=== PATIENT | female | born 1995 | race Caucasian/White ===

== ENCOUNTER 2017-12-11 06:14 | Inpatient (IN) | payer OTHER, SELFPAY ==
[2017-12-11] MEDS: Lactated Ringers 1,000 ML 50 ML IV ×3 (07:00→13:32)
[2017-12-11 07:03] VITALS: BMI 29.7
[2017-12-11 07:25] LABS: Hematocrit 34.5 % (37-47); Hemoglobin 12.1 g/dl (12.0-15.0); Mean Corp Hgb Conc 35.1 g/gl (32-36); Mean Corpuscular Hgb 30.8 pg (27.0-32.0); Mean Corpuscular Volume 87.8 fL (81-99); Mean Platelet Vol. 12.3 fl (6.2-12.0); Platelet Count 195 K/mm3 (150-450); RBC Distribution Width CV 13.5 % (11.6-14.6); RBC Distribution Width SD 41.3 fl (35.1-43.9); Red Blood Count 3.93 M/mm3 (4.2-5.4); White Blood Count 13.5 K/mm3 (4.4-11.0)
[2017-12-11 07:30] LABS: Scan Indicated on CBC? Y/N NO
[2017-12-11] MEDS: fentaNYL-bupivacaine (epidural) 100 ML BAG EPIDURAL ×2 (08:34→11:58)
[2017-12-11] MEDS: Ondansetron 4 MG/2 ML Vial IV (13:32)
[2017-12-11] MEDS: Oxytocin 30 units/NS 500 ml 30 UNITS/500 ML IV.SOLN IV (16:28)
[2017-12-11] MEDS: Oxytocin 30 units/NS 500 ml 30 UNITS/500 ML IV.SOLN 334 UNITS IV (17:25)
[2017-12-11] MEDS: Oxytocin 30 units/NS 500 ml 30 UNITS/500 ML IV.SOLN 167 UNITS IV (17:55)
--- NOTE | 2017-12-11 18:04 | PCM.OB.VAG ---
Vaginal Delivery Maternal Presentation: Active Labor Amniotic Membrane Rupture Type: Artificial Amniotic Fluid Description: Clear Final KOREY: 12/19/17 Final KOREY Source: US <20 weeks Gestational age: 38 Weeks and 6 Days Date of Procedure: 12/11/17 Pre-Operative Diagnosis: Labor Post-Operative Diagnosis: same Surgery/ Procedure Performed: Spontaneous Vaginal Delivery Type of Anesthesia: Epidural Description of Procedure: A vigorous male was delivered DEBBI over a second-degree perineal laceration. The remainder the was delivered with maternal pushing and gentle traction only in less than 15 seconds. The Pitocin infusion was initiated for active management of the third stage. The cord was clamped and cut after 1 minute. The was attended to by the waiting nursing staff. The placenta was delivered spontaneously and intact. The cervix and vagina were intact. The second-degree perineal laceration was repaired with 3-0 Vicryl suture in a running standard fashion. Sponge and needle counts were correct. A vaginal sweep was completed by me. Presentation: DEBBI Placental Delivery Description: Spontaneous Placenta Disposition: [facility] Cord Vessel Description: 3 Vessels Cord Entanglement: None Drain: Yang to straight drain Estimated Blood Loss: 300 Infant A gender: Male (1 minute): 8 (5 minute): 9 Episiotomy Description: None Medications given after delivery: IV Pitocin Complications: None
--- NOTE | 2017-12-11 18:12 | HP.PCM_ITS ---
History Date of Admission: 12/11/17 Final KOREY: 12/19/17 Final KOREY Source: US <20 weeks Gestational age: 38 Weeks and 6 Days History of this : 22-year-old 1 para 0 who presents at 38-6/7 weeks gestation with EDC of 12/19/2017 by last menstrual period confirmed by first trimester ultrasound presents complaining of contractions. She has been having contractions all night. This morning it got severe enough that she came to labor and delivery and was found to be 6 cm in active labor. She has had no gross vaginal bleeding or leaking of fluid. The has been uncomplicated to date Pertinent Past Medical History: History of urinary tract infections, left wrist fracture, neuroma of the breast Family medical history is noncontributory Past surgical history-none Allergies No Known Allergies Allergy (Verified 10/30/14 16:04) Current Medications Acetaminophen (Tylenol) 325 - 650 mg PO Q4H PRN PRN PRN Reason: PAIN OR FEVER >100.4F Al Hydroxide/Mg Hydroxide (Mylanta Ii) 15 - 30 ml PO Q4H PRN PRN PRN Reason: INDIGESTION Citric Acid/Sodium Citrate (Bicitra) 30 ml PO UD PRN Lactated Ringer's () 1,000 mls @ 50 mls/hr IV .Q20H GERMÁN Last Admin: 12/11/17 13:32 Dose: 50 mls/hr Naloxone HCl 4 mg/ Dextrose 504 mls @ 0 mls/hr IV PRN PRN; Protocol PRN Reason: TO MAINTAIN RR>10 Oxytocin/Sodium Chloride () 30 units in 500 mls @ 1 mls/hr IV .Q500H GERMÁN Nalbuphine HCl (Nubain) 5 - 10 mg IV Q3H PRN PRN PRN Reason: PAIN (4-10/10) Nalbuphine HCl (Nubain) 5 mg IV Q3H PRN PRN Reason: ITCHING Stop: 12/12/17 08:27 Naloxone HCl (Narcan) 0.2 mg IV Q1M PRN PRN Reason: RR<10 AND PT UNRESPONSIVE Stop: 12/12/17 08:27 Ondansetron HCl (Zofran) 4 mg IV Q8H PRN PRN PRN Reason: NAUSEA Last Admin: 12/11/17 13:32 Dose: 4 mg Promethazine HCl (Phenergan Iv) 6.25 - 12.5 mg IV Q4H PRN PRN; Protocol PRN Reason: IF NAUSEA PERSISTS Sodium Chloride () 5 - 15 ml IV UD [facility] Smoking Status: Never smoker Alcohol: None Drug Use: none Number of Fetus(es): 1 Review of Systems Constitutional: Denies: Chills, Fever Cardiovascular: Denies: Chest Pain Respiratory: Denies: Cough Skin: Denies: Rash Physical Exam General: Alert, Cooperative, No apparent distress Abdomen: Soft, Non Tender, Non-Distended, Gravid, Appropriate for Gestational Age Extremities:: Other - 1+ edema Estimated gestational size: Appropriate for gestational size Presentation: Cephalic Assessment/Plan 22-year-old 1 para 0 at 38-6/7 weeks gestation in spontaneous labor. 1. Estimated weight is less than 4500 g the pelvis is clinically adequate to expect vaginal delivery 2. Epidural if desires, Pitocin augmentation if needed
[2017-12-11] MEDS: 0.9% Saline Lock 10 ML Syringe IV (19:20)
[2017-12-11 19:41] VITALS: BP 132/73; PULSE 75; RESP 18; TEMP 36.4; O2SAT 98
[2017-12-11 23:11] VITALS: BP 113/65; PULSE 85; RESP 18; TEMP 36.7
--- NOTE | 2017-12-11 23:30 | NURSING ---
patient was up to bathroom, voided and missed hat-only 100 cc into hat. patient feels was able to fully empty bladder, FF
[2017-12-12 03:27] VITALS: BP 121/84; PULSE 85; RESP 18; TEMP 36.4
--- NOTE | 2017-12-12 03:42 | NURSING ---
missed hat again, voided large amount in toilet. feels like emptied bladder
[2017-12-12] MEDS: Acetaminophen 500 MG Tablet 1000 MG PO ×2 (03:43→16:46)
[2017-12-12 04:48] LABS: Hematocrit 30.9 % (37-47); Hemoglobin 10.5 g/dl (12.0-15.0); Mean Corpuscular Hgb 30.6 pg (27.0-32.0); Mean Corpuscular Volume 90.1 fL (81-99); Mean Platelet Vol. 12.2 fl (6.2-12.0); Platelet Count 157 K/mm3 (150-450); RBC Distribution Width CV 13.8 % (11.6-14.6); RBC Distribution Width SD 43.3 fl (35.1-43.9); Red Blood Count 3.43 M/mm3 (4.2-5.4); White Blood Count 14.3 K/mm3 (4.4-11.0)
[2017-12-12 04:49] LABS: Scan Indicated on CBC? Y/N NO
[2017-12-12 08:00] VITALS: BP 119/70; PULSE 85; RESP 16; TEMP 36.4; O2SAT 98
--- NOTE | 2017-12-12 08:22 | PCM.PN.OB ---
Subjective: No complaints - Physical Exam General: Alert, Oriented x3 Abdomen: Soft, Non Tender, Non-Distended Vital Signs Temp Pulse Resp BP Pulse Ox 97.6 F L 85 18 121/84 H 98 12/12/17 03:27 12/12/17 03:27 12/12/17 03:27 12/12/17 03:27 12/11/17 19:41 Oxygen Delivery Method Room Air Weight: 173 lb 1.006 oz Body Mass Index (BMI) 29.7 Intake and Output for Last 24 Hours 12/10/17 12/11/17 12/12/17 23:59 23:59 23:59 Intake Total 3607 / 3607 Output Total 700 / 700 100 / 100 Balance 2907 / 2907 -100 / -100 Laboratory Tests Past 24 Hrs 12/11/17 12/12/17 07:00 04:30 WBC 14.3 H RBC 3.43 L Hgb 10.5 L Hct 30.9 L MCV 90.1 MCH 30.6 MCHC 34.0 RDW 13.8 RDW Differential 43.3 Plt Count 157 MPV 12.2 H Blood Type O POSITIVE Antibody Screen NEGATIVE Medical Necessity - Tobacco Use Smoking Status: Never smoker Assessment/Plan A&P: PPD#1 Routine care
--- NOTE | 2017-12-12 09:12 | PCM.PN.OB ---
Subjective: pain well controlled, average lochia - Physical Exam General: Alert, Cooperative, No apparent distress Vital Signs Temp Pulse Resp BP Pulse Ox 97.6 F L 85 18 121/84 H 98 12/12/17 03:27 12/12/17 03:27 12/12/17 03:27 12/12/17 03:27 12/11/17 19:41 Oxygen Delivery Method Room Air Weight: 78.5 kg Body Mass Index (BMI) 29.7 Intake and Output for Last 24 Hours 12/10/17 12/11/17 12/12/17 23:59 23:59 23:59 Intake Total 3607 / 3607 Output Total 700 / 700 100 / 100 Balance 2907 / 2907 -100 / -100 Laboratory Tests Past 24 Hrs 12/11/17 12/12/17 07:00 04:30 WBC 14.3 H RBC 3.43 L Hgb 10.5 L Hct 30.9 L MCV 90.1 MCH 30.6 MCHC 34.0 RDW 13.8 RDW Differential 43.3 Plt Count 157 MPV 12.2 H Blood Type O POSITIVE Antibody Screen NEGATIVE Medical Necessity - Tobacco Use Smoking Status: Never smoker Assessment/Plan PPD#1 doing well infant and doing well
--- NOTE | 2017-12-12 09:13 | DCINST_ITS ---
Discharge Diet: No Restrictions Discharge Activity: Return to Normal Activity, May not drive while taking narcotic pain medications., May Shower May resume sexual activity in: 4-6 weeks Additional Activity Instructions:: Nothing in the vagina for 4-6 weeks. You may return to work/school in 6 weeks. Call your doctor if your incision/area has: Continuous Slow Oozing, Sudden Increased Bleeding, Increased Pain/ Swelling, Increased Redness, Foul Smelling Discharge Additional Instructions: If you experience any of the following, contact your healthcare provider. * Bleeding that soaks a pad every hour for 2 hours * Fever 100.4 or higher * Unrelieved incision or abdominal pain * Swelling, redness, discharge or bleeding from your incision or episiotomy site * Your incision begins to separate * Problems urinating (including inability to urinate or burning while urinating) . * Visual changes * Severe headache * Flu-like symptoms * Pain or redness in one of both of your breasts * Pain, warmth, tenderness or swelling in your legs, especially the calf area * Frequent nausea and vomiting * Symptoms of depression or anxiety If you experience any of the following, call 911 or go to the nearest Emergency Room. * Chest pain * Problems breathing * Seizure activity * Partial or complete paralysis of a body part, slurred speech, weakness or drooping of the face, or a sudden inability to walk or hold your balance Allergies/Adverse Reactions: Allergies No Known Allergies Allergy (Verified 10/30/14 16:04) Medications to take at Discharge Vits [Prenatabs FA] 1 tablet PO DAILY 12/11/17 Ibuprofen [Motrin] 600 mg PO Q6H PRN #60 tab 12/12/17 The following prescriptions were given: Ibuprofen [Motrin] 600 mg PO Q6H PRN #60 tab PRN Reason: Pain Orders to be completed after discharge: Electric breast pump Location: None Selected Please Follow Up With: Nina Cuenca MD - [phone] When: Call to make an appointment with your doctor's office in 6 weeks. If you had elevated Blood Pressure or 4th degree laceration you will need to be seen in 2 weeks. Primary Care Physician: Care Physician,No Primary [Primary Care Provider] -
[2017-12-12] MEDS: Naproxen 250 MG Tablet PO (09:43)
[2017-12-12 14:00] VITALS: BP 119/75; PULSE 77; RESP 16; TEMP 36.6
[2017-12-12 15:19] VITALS: BP 117/76; PULSE 78; RESP 16; TEMP 36.6; O2SAT 99
[2017-12-12 19:42] VITALS: BP 114/67; PULSE 80; RESP 16; TEMP 36.6; O2SAT 98
[2017-12-13 02:45] VITALS: BP 120/77; PULSE 72; RESP 16; TEMP 36.4; O2SAT 97
[2017-12-13] MEDS: Ibuprofen 600 MG Tablet PO (02:56)
[2017-12-13 08:20] VITALS: BP 114/71; PULSE 78; RESP 20; TEMP 36.6
--- NOTE | 2017-12-13 09:21 | PCM.PN.BLA ---
Progress Note S: Patient reports no issues today, desires to be discharged to home. Patient reports is going well, patient notes no issues with latch. Patient denies dizziness, scotoma or HOWARD. O: VSS, Afebrile. H/H from 12/12/17 = 12.7/38.0 Nipples without cracks or blisters, soft, filling, no erythema noted Abdomen NT x 4 quadrants, FF midline @ 2FB below umbilicus +2/4 reflexes in LE, no edema, negative calf tenderness to palpation perineum well approximated, scant rubra lochia A: PPD #2, s/p , Normal PP Course P: 1) Discharge patient to home 2) Anticipatory PP teaching reviewed 3) RTC at 6 weeks PP to [facility] for gildardo Thibodeaux CNM
--- NOTE | 2017-12-13 09:28 | PN_ITS ---
Progress Note S: Patient reports no issues today, desires to be discharged to home. Patient reports is going well, patient notes no issues with latch. Patient denies dizziness, scotoma or HOWARD. O: VSS, Afebrile. H/H from 12/12/17 = 12.7/38.0 Nipples without cracks or blisters, soft, filling, no erythema noted Abdomen NT x 4 quadrants, FF midline @ 2FB below umbilicus +2/4 reflexes in LE, no edema, negative calf tenderness to palpation perineum well approximated, scant rubra lochia A: PPD #2, s/p , Normal PP Course P: 1) Discharge patient to home 2) Anticipatory PP teaching reviewed 3) RTC at 6 weeks PP to [facility] for gildardo Thibodeaux CNM
[2017-12-13] MEDS: Senna/Docusate Sodium 1 Tablet PO (09:56)
== END 2017-12-13 13:20 | disposition home or self-care (01) | DRG 775 ==
PROVIDERS: Obstetrics & Gynecology; Admitting Provider Obstetrics & Gynecology; Visit Provider Obstetrics & Gynecology
DX: O70.1 Second degree perineal laceration during delivery (principal); Z37.0 Single live birth; Z3A.38 38 weeks gestation of pregnancy
CPT/HCPCS: 59025; 59050; 85027; 86850; 86900; 99218; J7120; A4216; G0378; J2405

== ENCOUNTER 2017-12-22 11:23 | Outpatient (CLI) | payer OTHER, SELFPAY | END 2017-12-22 12:00 | disposition home or self-care (01) | LOC: WPOUT 11:29 → WP 11:30 | PROVIDERS: Visit Provider Pediatrics | DX: O92.79 Other disorders of lactation (principal) | CPT/HCPCS: 96152 ==

== ENCOUNTER 2019-10-27 15:30 | Inpatient (IN) | payer OTHER, SELFPAY ==
[2019-10-27] MEDS: Lactated Ringers 1,000 ML 200 ML IV (15:50)
[2019-10-27 16:21] VITALS: BMI 30.7
[2019-10-27 16:26] LABS: Absolute Lymphocyte Count 1.94 X10^3/uL (0.83-4.51); Absolute Neutrophil Count 8.1 X10^3/uL (2.0-7.7); Basophil# 0.01 X10^3/uL; Basophil% 0.1 % (0-1); Eosinophil# 0.02 X10^3/uL; Eosinophils% 0.2 % (0-5); Hematocrit 33.5 % (37-47); Hemoglobin 11.5 g/dL (12.0-15.0); Lymphocyte # 1.94 X10^3/ul (4.0); Lymphocyte % 17.6 % (19-41); Mean Corp Hgb Conc 34.3 g/dL (32-36); Mean Corpuscular Hgb 29.7 pg (27.0-32.0); Mean Corpuscular Volume 86.6 fL (81-99); Mean Platelet Vol. 12.4 fl (6.2-12.0); Monocyte# 0.87 X10^3/uL; Monocyte% 7.9 % (0-10); NRBC Flagged by Analyzer 0 % (0-5); Neutrophil # 8.11 X10^3/uL (2.7-7.7); Neutrophil % 73.7 % (47-70); Platelet Count 193 K/mm3 (150-450); RBC Distribution Width CV 13.2 % (11.6-14.6); RBC Distribution Width SD 41.1 fl (35.1-43.9); Red Blood Count 3.87 M/mm3 (4.2-5.4)
[2019-10-27] MEDS: Oxytocin 30 units/NS 500 ml 30 UNITS/500 ML IV.SOLN 334 UNITS IV (16:55)
--- NOTE | 2019-10-27 17:03 | HP.PCM_ITS ---
History Date of Admission: 12/11/17 Final KOREY: 11/07/19 Final KOREY Source: US <20 weeks Gestational age: 38 Weeks and 3 Days History of this : This is a 24 year-old, @ 38.3 wks in active labor Allergies No Known Allergies Allergy (Verified 10/30/14 16:04) Home Medications: Home Medications Vits [Prenatabs FA] 1 tablet PO DAILY 12/11/17 Smoking Status: Never smoker Alcohol: None Number of Fetus(es): 1 History Past Pregnancies: Past Pregnancies Delivery Date Name GA/ Weeks Outcome Route Wt Sex Labor Length Anesthesia Delivery Location Provider FOB Physical Exam General: Alert, Oriented x3 Abdomen: Soft, Gravid Neurological: Cranial nerves II-XII grossly intact [employer]: Normal external genitalia Estimated gestational size: Appropriate for gestational size Presentation: Cephalic Cervix Dilation (cm): 9 Station: 0 Effacement (%): 90 Assessment/Plan This is a 24 year-old, @ 38.3 wks in active labor admit to l&D monitor fhr/toco anticipate
--- NOTE | 2019-10-27 17:04 | PCM.OPRPT ---
Vaginal Delivery Maternal Presentation: Active Labor Amniotic Membrane Rupture Type: Artificial Amniotic Fluid Description: Clear Final KOREY: 11/07/19 Final KOREY Source: LMP Gestational age: 38 Weeks and 3 Days Date of Procedure: 10/27/19 Pre-Operative Diagnosis: term gestation, active labor Post-Operative Diagnosis: Live female Surgery/ Procedure Performed: Spontaneous Vaginal Delivery Type of Anesthesia: None Description of Procedure: of live female infant born without complications. Delayed cord clamping performed. vigorous at and placed on mother chest for skin to skin. placenta delivered spontaneously intact. No lacerations. Presentation: Vertex Placental Delivery Description: Spontaneous Placenta Disposition: [facility] Cord Vessel Description: 3 Vessels Nuchal Cord Compression: With compression Cord Entanglement: Around neck x 1, loose Estimated Blood Loss: 150 Infant A gender: Female (1 minute): 9 (5 minute): 9 Episiotomy Description: None Laceration: None Medications given after delivery: IV Pitocin Complications: None
[2019-10-27] MEDS: Ibuprofen 600 MG Tablet PO (17:31)
[2019-10-27] MEDS: 0.9% Saline Lock 10 ML Syringe IV (19:32)
[2019-10-27 21:00] VITALS: BP 119/68; PULSE 84; RESP 18; TEMP 37.2
[2019-10-27 23:22] VITALS: BP 111/80; PULSE 80; RESP 14; TEMP 37.1
[2019-10-28 03:58] VITALS: BP 108/67; PULSE 77; RESP 14; TEMP 36.9
--- NOTE | 2019-10-28 07:26 | PCM.PN.OB ---
Subjective: pt seen at bedside, Doing well. Patient reports good pain control. Mild lochia. Breast-feeding without difficulty. Requesting DC home today - Physical Exam Vitals/I&O's: Vital Signs Temp Pulse Resp BP 98.5 F 77 14 108/67 10/28/19 03:58 10/28/19 03:58 10/28/19 03:58 10/28/19 03:58 Oxygen Delivery Method Room Air Weight: 81.193 kg Body Mass Index (BMI) 30.7 Intake and Output for Last 24 Hours 10/26/19 10/27/19 10/28/19 23:59 23:59 23:59 Intake Total 716.67 / 716.67 Balance 716.67 / 716.67 General: Alert, Oriented x3 Abdomen: Soft, Non Tender, Non-Distended Extremities: No Calf Tenderness, - - fundus firm Laboratory Results 10/27/19 15:50: WBC 11.0, RBC 3.87 L, Hgb 11.5 L, Hct 33.5 L, MCV 86.6, MCH 29.7, MCHC 34.3, RDW Std Deviation 41.1, RDW Coeff of Patrick 13.2, Plt Count 193, MPV 12.4 H, Immature Gran % (Auto) 0.500, Neut % (Auto) 73.7 H, Lymph % (Auto) 17.6 L, [place] % (Auto) 7.9, Eos % (Auto) 0.2, Baso % (Auto) 0.1, Absolute Neuts (auto) 8.1 H, Absolute Lymphs (auto) 1.94, Nucleated RBC % 0 10/27/19 15:50: Blood Type O POSITIVE, Antibody Screen NEGATIVE Current Medications Acetaminophen (Tylenol) 1,000 mg PO Q8H PRN PRN PRN Reason: Pain Score 1-3/10 Bisacodyl (Dulcolax) 10 mg RECTAL UD PRN PRN Reason: If no BM Dibucaine (Dibucaine) 1 applic TOPICAL TID PRN PRN; Protocol PRN Reason: Discomfort Hydrocortisone (Hytone) 1 applic TOPICAL TID PRN PRN; Protocol PRN Reason: Discomfort Ibuprofen (Motrin) 600 mg PO Q6H PRN PRN PRN Reason: Pain Score 1-3/10 Last Admin: 10/27/19 17:31 Dose: 600 mg Documented by: Methylergonovine Maleate (Methergine) 0.2 mg IM X1 PRN PRN Reason: Excess bleeding/uterine atony Ondansetron HCl (Zofran) 4 mg IV Q4H PRN PRN PRN Reason: Nausea Oxycodone HCl (Oxyir) 5 - 10 mg PO Q4H PRN PRN PRN Reason: Pain Score 4-10/10 Senna/Docusate Sodium (Senokot-S, Susan-Colace) 1 - 2 tablet PO DAILY PRN PRN PRN Reason: Constipation Simethicone (Mylicon) 80 mg PO PCHS PRN PRN Reason: Indigestion/Stomach pain Sodium Chloride () 5 - 15 ml IV UD PRN PRN Reason: SALINE FLUSH Last Admin: 10/27/19 19:32 Dose: 10 ml Documented by: Medical Necessity - Tobacco Use Smoking Status: Never smoker Assessment/Plan PPD#1, doing well routine care pain mgmt dc home
--- NOTE | 2019-10-28 07:28 | DCINST_ITS ---
Discharge Diet: No Restrictions Discharge Activity: Return to Normal Activity, May not drive while taking narcotic pain medications., May Shower May resume sexual activity in: 4-6 weeks Additional Activity Instructions:: Nothing in the vagina for 4-6 weeks. You may return to work/school in 6 weeks. Call your doctor if your incision/area has: Continuous Slow Oozing, Sudden Increased Bleeding, Increased Pain/ Swelling, Increased Redness, Foul Smelling Discharge Additional Instructions: If you experience any of the following, contact your healthcare provider. * Bleeding that soaks a pad every hour for 2 hours * Fever 100.4 or higher * Unrelieved incision or abdominal pain * Swelling, redness, discharge or bleeding from your incision or episiotomy site * Your incision begins to separate * Problems urinating (including inability to urinate or burning while urinating). * Visual changes * Severe headache * Flu-like symptoms * Pain or redness in one of both of your breasts * Pain, warmth, tenderness or swelling in your legs, especially the calf area * Frequent nausea and vomiting * Symptoms of depression or anxiety If you experience any of the following, call 911 or go to the nearest Emergency Room. * Chest pain * Problems breathing * Seizure activity * Partial or complete paralysis of a body part, slurred speech, weakness or drooping of the face, or a sudden inability to walk or hold your balance Allergies/Adverse Reactions: Allergies No Known Allergies Allergy (Verified 10/30/14 16:04) Medications to take at Discharge Vits [Prenatabs FA ] 1 tablet PO DAILY 12/11/17 Ibuprofen [Motrin] 600 mg PO Q6H PRN PRN #30 tab 10/28/19 The following prescriptions were given: Ibuprofen [Motrin] 600 mg PO Q6H PRN PRN #30 tab PRN Reason: Pain Score 1-3/10 Transmission Status: Pending to [facility] When: Call to make an appointment with your doctor in 1-2 weeks and then 6 weeks. Primary Care Physician: Care Physician,No Primary [Primary Care Provider] - Test Results: Test results from this visit will be discussed in further detail at your follow- up appointment, if applicable.
[2019-10-28 08:34] VITALS: BP 111/55; PULSE 85; RESP 18; TEMP 36.6; O2SAT 98
[2019-10-28 11:52] VITALS: BP 113/71; PULSE 83; RESP 14; TEMP 37.1
[2019-10-28 15:31] VITALS: BP 114/79; PULSE 80; RESP 16; TEMP 36.6
--- NOTE | 2019-10-29 08:04 | NURSING ---
Late Entry 10/28/2019 1800: PHQ2 screening done. Patient answered no to both questions.
== END 2019-10-28 18:40 | disposition home or self-care (01) | DRG 807 ==
PROVIDERS: Admitting Provider Obstetrics & Gynecology; Referring Provider Obstetrics & Gynecology; Visit Provider Obstetrics & Gynecology
DX: O69.1XX0 Labor and delivery complicated by cord around neck, with compression, not applicable or unspecified (principal); Z37.0 Single live birth; Z3A.38 38 weeks gestation of pregnancy
CPT/HCPCS: 59050; 85025; 86850; 86900; 86901; 99218; J7120; A4216; G0378

== ENCOUNTER 2022-04-11 13:55 | Inpatient (IN) | payer BC, SELFPAY ==
[2022-04-11] VITALS (13 sets, daily range): BP systolic 113–133; BP diastolic 72–87; PULSE 82–107; TEMP 37–38.2; O2SAT 97; BMI 30.9
[2022-04-11] MEDS: Lactated Ringers 1,000 ML 50 ML IV (16:20)
[2022-04-11 16:44] LABS: Absolute Lymphocyte Count 2.32 X10^3/uL (0.83-4.51); Absolute Neutrophil Count 8.6 X10^3/uL (2.0-7.7); Basophil# 0.02 X10^3/uL; Basophil% 0.2 % (0-1); Eosinophil# 0.01 X10^3/uL; Eosinophils% 0.1 % (0-5); Hematocrit 32.1 % (37-47); Lymphocyte # 2.32 X10^3/ul (0.83-4.51); Lymphocyte % 19.4 % (19-41); Mean Corp Hgb Conc 34.3 g/dL (32-36); Mean Corpuscular Hgb 29.7 pg (27.0-32.0); Mean Corpuscular Volume 86.8 fL (81-99); Mean Platelet Vol. 12.5 fl (6.2-12.0); Monocyte# 1.02 X10^3/uL; Monocyte% 8.5 % (0-10); NRBC Flagged by Analyzer 0 % (0-5); Neutrophil # 8.56 X10^3/uL (2.7-7.7); Neutrophil % 71.5 % (47-70); Platelet Count 181 K/mm3 (150-450); RBC Distribution Width CV 13.6 % (11.6-14.6); RBC Distribution Width SD 42.4 fl (35.1-43.9)
--- NOTE | 2022-04-11 17:13 | HP.PCM.OB_ITS ---
HPI - General General Date of Admission: 04/11/22 HPI Narrative CHUCKIE BIGGS, is a 26 F at 38.6 weeks who presents in spontaneous, active labor. She was seen in office today and was 5cm. Continued to have contractions after membrane sweeping. Positive movement. Denies any loss of fluid or vaginal bleeding. was initially complicated by low lying placenta but this resolved. GBS negative. Maternal Data Information KOREY Calculator Estimated Delivery Date Method Current WG Current Estimate 04/19/22 Manual 38w 6d PFSH PFSH Medical History no medical history Home Medications vits,calcium no.78-iron fumarate-folic acid 29 mg-1 mg tablet (Prenatabs FA) 1 tab PO DAILY 12/11/17 [History Last Taken 04/11/22 09:00] Allergy/AdvReac Type Severity Reaction Status Date / Time No Known Allergies Allergy Verified 04/11/22 16:08 Surgical History no surgical history Social History Smoking Status: Never smoker History Elective abortions Hx Para 2 Spontaneous abortions Hx # Term Pregnancies Ectopic pregnancies Hx # Pregnancies Multiple births # of living children Visit Details OB Flowsheet Initial Weight: Not Recorded Date -?-?-?-?-?-?-?-?-?-?-?-?- EGA Weight BP Urine Prot -?-?-?-?-?-?-?-?-?-?-?-?- Glucose FHR FuHt Pres Dilation -?-?-?-?-?-?-?-?-?-?-?-?- Effaced St Visit Note 04/11/22 -?-?-?-?--?-?-?-?-?-?-?-?- 38w 6d 180 lb 126/87 -?-?-?-?-?-?-?-?-?-?-?-?- -?-?-?-?-?-?-?-?-?-?-?-?- NST FHR Rate Baby A Baseline: 135 Variability:: Moderate Accelerations:: 15 x 15 Decelerations:: None NST Reactive:: Yes FHR Category:: Category I Uterine Activity:: 1-2 minutes, palpate moderate and relaxed in between ROS Eyes Eyes: Denies blurry vision Cardiovascular Cardiovascular: Reports none; Denies chest pain at rest, chest pain with activity or dizziness Respiratory/Chest Respiratory/Chest: Denies cough or dyspnea Gastrointestinal Gastrointestinal: Reports none and other; Denies diarrhea or vomiting Genitourinary Genitourinary: Denies dysuria Musculoskeletal Musculoskeletal: Reports none Integumentary Integumentary: Reports none; Denies rash Neurologic Neurologic: Denies dizziness, headache(s) or other visual disturbances Psychiatric Psychiatric: Reports none Vital Signs Vital Signs Vital Signs: 04/11/22 16:42 04/11/22 16:42 04/11/22 16:42 Temperature Temperature Source Pulse Rate 91 97 Blood Pressure 126/87 H BP Systolic 126 BP Diastolic 87 Pulse Ox 04/11/22 16:42 04/11/22 16:43 04/11/22 16:43 Temperature 100.8 F H Temperature Source Temporal Pulse Rate Blood Pressure BP Systolic BP Diastolic Pulse Ox 97 04/11/22 16:43 Temperature 99.0 F Temperature Source Pulse Rate Blood Pressure BP Systolic BP Diastolic Pulse Ox Weight Weight: 180 lb Body Mass Index (BMI) 30.9 Physical Exam Const alert, oriented x3 and no apparent distress General Appearance: cooperative Orientation / Consciousness: awake Exam Limitations: no limitations HEENT normocephalic Head and Scalp: normal to inspection Eyes General Eye: normal appearance of both eyes Neck full ROM and no lymphadenopathy Lymph Lymphatic: no lymphadenopathy noted Chest inspection of chest normal Resp normal respiratory effort, normal air movement and clear to auscultation bilaterally Effort and Inspection: able to speak in complete sentences and symmetric chest movement Cardio regular rate and regular rhythm GI normal to inspection, nondistended, normoactive bowel sounds Manual OB Exam: presentation cephalic, dilated 8, effaced 80 and station - 2 Back/Spine normal ROM Extremity full ROM and no calf tenderness Skin no rashes or lesions noted General Skin Exam: no breakdown Neuro oriented x3 and CN's II-XII intact bilaterally Psych mental status grossly normal and thought process normal Labs Labs Labs: Blood Type O POSITIVE Antibody Screen NEGATIVE Hct 32.1 % (37-47) L Hgb 11.0 g/dL (12.0-15.0) L Rhogam given: No Assessment & Plan (1) Spontaneous onset of labor: (2) 38 weeks gestation of : (3) Multiparity: PLAN: Plan Admit to labor and delivery Epidural if indicated Routine labs GBS negative AROM for moderate amount of clear fluid Anticipate Dr. Ames notified and is collaborating physician
[2022-04-11] MEDS: Oxytocin 30 units/NS 500 ml 30 UNITS/500 ML IV.SOLN 334 UNITS IV (18:17)
--- NOTE | 2022-04-11 18:25 | EX.PCM.OBRPT ---
Assessment & Plan (1) Multiparity: (2) 38 weeks gestation of : (3) (spontaneous vaginal delivery): Maternal Data Information KOREY Calculator Estimated Delivery Date Method Current WG Current Estimate 04/19/22 Manual 38w 6d Vaginal Delivery Maternal Presentation Maternal Presentation: Active Labor Maternal Presentation: at 38.6 weeks gestation that presented in spontaneous, active labor. Type of Induction: Amniotomy Operative Information Date of Procedure: 04/11/22 Pre-Operative Diagnosis: Term gestation, spontaneous onset of labor Post-Operative Diagnosis: , Live male Surgery / Procedure Performed: Spontaneous Vaginal Delivery Type of Anesthesia: None Estimated Blood Loss: 200 Time of Delivery: 18:15 Findings Description of Procedure: Patient having urge to push- Currently in side lying position. CE - complete +2 station. With initial push, head delivered followed by anterior shoulder, posterior shoulder and remainder of body without any traction. FOB assisted with placing on maternal abdomen after delivery. Vigorous male infant attended to by nursing staff. Pitocin IV started for active management of the third stage of labor. 3 vessel cord clamped and cut by FOB after 2 minute delay. Infant placed immediately skin to skin on patient. Cord blood collected and sent. Placenta delivered spontaneously and intact. Vaginal sweep completed by me. Vagina and perineum intact. EBL 200 cc. APGARS 8/9. Infant and patient bonding well at this time. Dr. Ames notified of delivery. Presentation: Vertex and DEBBI Amniotic Membrane Rupture Type: Artificial Time of Membrane Rupture: 1701 Amniotic Fluid Description: Clear Placental Delivery Description: Spontaneous Placenta Disposition: [facility] Cord Vessel Description: 3 Vessels Cord Entanglement: None A Gender: Male (1 minute): 8 (5 minute): 9 Delayed Cord Clamping: Yes Post Vaginal Delivery Medications Given After Delivery: IV Pitocin Episiotomy Description: None Laceration: None Complication Complications: None
[2022-04-11] MEDS: Acetaminophen 500 MG Tablet 1000 MG PO (19:24)
[2022-04-11] MEDS: Naproxen 500 MG Tablet PO (20:34)
[2022-04-12] VITALS (8 sets, daily range): BP systolic 106–123; BP diastolic 61–78; PULSE 78–100; RESP 16–18; TEMP 36.8–37.1
--- NOTE | 2022-04-12 18:05 | PCM.PN.OB ---
Subjective Subjective Doing well per patient and nursing staff. Ambulating and taking PO without difficulty. Voiding and passing flatus. Pain controlled. , services for assistance. Denies headache, visual changes, chest pain, shortness of breath, leg pain or increased bleeding. Lochia normal. Objective Data Objective Data Vital Signs: Vital Signs Temp Pulse Resp BP Pulse Ox O2 Del Method 98.7 F 99 16 111/76 97 Room Air 04/12/22 15:45 04/12/22 15:45 04/12/22 15:45 04/12/22 15:45 04/11/22 16:42 04/12/22 04:02 Oxygen Delivery Method Room Air Weight: 180 lb Body Mass Index (BMI) 30.9 Intake & Output: Intake and Output for Last 24 Hours 04/10/22 04/11/22 04/12/22 23:59 23:59 23:59 Intake Total 595.83 / 595.83 Balance 595.83 / 595.83 Lab / Micro Data Result Diagrams: 04/11/22 16:30 Micro: Microbiology 04/11/22 16:30 Nasal Secretion SARS-CoV-2 Antigen (Rapid) - Final ROS Constitutional Constitutional: Reports systems reviewed and no addt'l complaints, except as documented; Denies headache(s) Eyes Eyes: Denies acute decrease in peripheral vision, blurry vision or change in vision ENT HEENT: Reports systems reviewed and no addt'l complaints, except as documented Cardiovascular Cardiovascular: Denies chest pain or dizziness Respiratory/Chest Respiratory/Chest: Denies cough, dyspnea, dyspnea on exertion, shortness of breath at rest or shortness of breath with exertion Gastrointestinal Gastrointestinal: Denies abdominal pain, diarrhea, nausea or vomiting Genitourinary Genitourinary: Denies abdominal discomfort Musculoskeletal Musculoskeletal: Denies limited range of motion Integumentary Integumentary: Reports systems reviewed and no addt'l complaints, except as documented Neurologic Neurologic: Reports systems reviewed and no addt'l complaints, except as documented Psychiatric Psychiatric: Reports systems reviewed and no addt'l complaints, except as documented Endocrine Endocrinology: Reports systems reviewed and no addt'l complaints, except as documented Hematologic/Lymphatic Hematologic/Lymphatic: Reports systems reviewed and no addt'l complaints, except as documented Allergic/Immunologic Allergic/Immunologic: Reports systems reviewed and no addt'l complaints, except as documented Physical Exam Const alert and oriented x3 General Appearance: cooperative Orientation / Consciousness: awake, oriented to person, oriented to place and oriented to time Exam Limitations: no limitations HEENT normocephalic Head and Scalp: normal to inspection, normocephalic and atraumatic Face and Sinus: normal facial exam Eyes General Eye: normal appearance of both eyes Neck full ROM Chest Chest: symmetrical chest wall rise Resp normal respiratory effort Cardio regular rate, regular rhythm, S1 normal heart sound, S2 normal heart sound, no murmurs, no rub, no gallops and no clicks GI normal to inspection, nondistended, normoactive bowel sounds and non-tender Bladder / Kidney Exam: no CVA tenderness Back/Spine normal ROM Extremity normal to inspection and full ROM Skin no rashes or lesions noted Neuro oriented x3 and moves all extremities Sensorium / Orientation: awake, alert and oriented to person Assessment & Plan (1) (spontaneous vaginal delivery): PLAN: Plan 1) Routine PP care 2) VSS 3) Pain controlled 4) support 5) Planning D/C home tomorrow due to baby needing to stay
[2022-04-13] VITALS (9 sets, daily range): BP systolic 110–121; BP diastolic 75–88; PULSE 70–110; RESP 16; TEMP 36.3–36.6; O2SAT 98
--- NOTE | 2022-04-13 09:44 | PCM.PN.OB ---
Subjective Subjective Doing well per patient and nursing staff. Ambulating and taking PO without difficulty. Voiding and passing flatus. Pain controlled. , services for assistance. Denies headache, visual changes, chest pain, shortness of breath, leg pain or increased bleeding. Lochia normal. Planning D/C home today, awaiting circumcision. Objective Data Objective Data Vital Signs: Vital Signs Temp Pulse Resp BP Pulse Ox O2 Del Method 97.4 F L 70 16 110/76 98 Room Air 04/13/22 07:49 04/13/22 07:49 04/13/22 07:49 04/13/22 07:49 04/13/22 07:49 04/13/22 07:49 Oxygen Delivery Method Room Air Weight: 180 lb Body Mass Index (BMI) 30.9 Intake & Output: Intake and Output for Last 24 Hours 04/11/22 04/12/22 04/13/22 23:59 23:59 23:59 Intake Total 595.83 / 595.83 Balance 595.83 / 595.83 Lab / Micro Data Result Diagrams: 04/11/22 16:30 Micro: Microbiology 04/11/22 16:30 Nasal Secretion SARS-CoV-2 Antigen (Rapid) - Final ROS Constitutional Constitutional: Reports systems reviewed and no addt'l complaints, except as documented; Denies headache(s) Eyes Eyes: Denies acute decrease in peripheral vision, blurry vision or change in vision ENT HEENT: Reports systems reviewed and no addt'l complaints, except as documented Cardiovascular Cardiovascular: Denies chest pain or dizziness Respiratory/Chest Respiratory/Chest: Denies cough, dyspnea, dyspnea on exertion, shortness of breath at rest or shortness of breath with exertion Gastrointestinal Gastrointestinal: Denies abdominal pain, diarrhea, nausea or vomiting Genitourinary Genitourinary: Denies abdominal discomfort Musculoskeletal Musculoskeletal: Denies limited range of motion Integumentary Integumentary: Reports systems reviewed and no addt'l complaints, except as documented Neurologic Neurologic: Reports systems reviewed and no addt'l complaints, except as documented Psychiatric Psychiatric: Reports systems reviewed and no addt'l complaints, except as documented Endocrine Endocrinology: Reports systems reviewed and no addt'l complaints, except as documented Hematologic/Lymphatic Hematologic/Lymphatic: Reports systems reviewed and no addt'l complaints, except as documented Allergic/Immunologic Allergic/Immunologic: Reports systems reviewed and no addt'l complaints, except as documented Physical Exam Const alert and oriented x3 General Appearance: cooperative Orientation / Consciousness: awake, oriented to person, oriented to place and oriented to time Exam Limitations: no limitations HEENT normocephalic Head and Scalp: normal to inspection, normocephalic and atraumatic Face and Sinus: normal facial exam Eyes General Eye: normal appearance of both eyes Neck full ROM Chest Chest: symmetrical chest wall rise Resp normal respiratory effort GI soft to palpation, non-tender and non-distended GI Narrative: fundus firm 2 below U Bladder / Kidney Exam: no CVA tenderness Back/Spine normal ROM Extremity normal to inspection and full ROM Extremity Narrative: Chari's negative bilaterally Skin no rashes or lesions noted Neuro oriented x3, CN's II-XII intact bilaterally and moves all extremities Sensorium / Orientation: awake, alert and oriented to person Motor Exam: clonus absent Deep Tendon Reflexes: Rt Patellar (L4): 2+ and Lt Patellar (L4): 2+ Assessment & Plan (1) (spontaneous vaginal delivery): PLAN: Plan 1) Routine PP and discharge instructions 2) Declines prescription for pain medication, will use OTC Ibuprofen and Tylenol 3) Vitals stable 4) support, doing well 5) D/C home 6) Follow up in 2 weeks for virtual and 6 weeks in person visit
== END 2022-04-13 14:30 | disposition home or self-care (01) | DRG 807 ==
PROVIDERS: Admitting Provider Advanced Practice Midwife; Visit Provider Advanced Practice Midwife
DX: O80 Encounter for full-term uncomplicated delivery (principal); Z37.0 Single live birth; Z20.822 Contact with and (suspected) exposure to COVID-19; Z3A.38 38 weeks gestation of pregnancy
CPT/HCPCS: 59025; 59050; 85025; 86850; 86900; 86901; 87811; 99218; J7120; G0378

== ENCOUNTER 2022-10-04 16:25 | Emergency (ER) | payer BC, SELFPAY ==
[2022-10-04 16:26] VITALS: BP 133/82; PULSE 82; RESP 17; TEMP 36.4; O2SAT 98; BMI 27.1
--- NOTE | 2022-10-04 16:59 | EDS_ITS ---
HPI HPI - Female History of Present Illness Chief Complaint: Complaint Narrative Narrative: 27-year-old female who denies significant past medical history presents with gross hematuria that began today. She states that she has not had her menses for over a year because she became , gave in March of last year, and now is breast-feeding. She had lower abdominal cramping that began today, and thought maybe she was starting her period. When she urinated she had an episode of gross hematuria. She denies any fevers or chills. No nausea or vomiting. She does not take blood thinners. No bleeding diathesis. She went to urgent care, where she had gross hematuria again. They sent her to the emergency department for evaluation. She denies any flank pain. She urinated here to give a sample, and states that her gross hematuria has improved. PFSH PFSH Home Medications vits,calcium no.78-iron fumarate-folic acid 29 mg-1 mg tablet (Prena tabs FA) 1 tab PO DAILY 12/11/17 [History Last Taken 04/11/22 09:00] Allergy/AdvReac Type Severity Reaction Status Date / Time No Known Allergies Allergy Verified 10/04/22 16:25 Social History Smoking Status: Never smoker ROS ROS ED ROS Narrative Constitutional: No fever, no chills. HEENT: No sore throat. No neck pain. No loss of vision. No rhinorrhea. Cardiovascular: No chest pain. No palpitations. No pedal edema. Respiratory: No cough, no shortness of breath. Abdominal: No abdominal pain currently. May have had lower abdominal cramping this morning. No nausea. No vomiting. Genitourinary: No dysuria. 2 episodes of gross hematuria. Musculoskeletal: No myalgias. No arthralgias. Mild low back pain earlier. Neurologic: No headaches. No dizziness. No lightheadedness. Skin: No rash. No change in color. Psychiatric: No depression. No anxiety. EXAM Physical Exam Narrative Exam Narrative: Afebrile. Vital signs noted. HEENT: Normocephalic. Atraumatic. PERRL, EOMI. Neck soft and supple. No point tenderness or step off. Cardiovascular: Regular rate and rhythm. No murmurs, rubs, or gallops appreciated. Respiratory: No tachypnea. Lungs clear to auscultation bilaterally. Gastrointestinal: Abdomen soft, nontender, with normoactive bowel sounds. No rebound or guarding. CVA tenderness to percussion bilaterally. Neurological: Awake. Alert. Nonfocal, nonlateralizing. Skin: No rash. Normal color. No pallor. Musculoskeletal: No pedal edema. Full range of motion extremities. Const Vital Signs: 10/04/22 16:26 Temperature 97.6 F L Temperature Source Temporal Pulse Rate 82 Respiratory Rate 17 Blood Pressure 133/82 H Blood Pressure Mean 99 Pulse Ox 98 Oxygen Delivery Method Room Air MDM MDM MDM Narrative Medical decision making narrative: I had a lengthy discussion with the patient and her mother. It does not sound like she is having ureteral colic. I do not feel emergent CT is currently indicated. Her hematuria is improving. Through shared decision-making, we will start with urinalysis and urine test. I reviewed her laboratory work. Her urine test is negative. Her urinalysis is negative for nitrites and negative for ketones. There is 250 occult blood. Microanalysis shows greater than 100 RBCs but no evidence of WBCs. I do not feel that she has a cystitis that requires antibiotics. In discussion with the patient, she is resting comfortably on the cot at reexamination at approximately 1755. I discussed obtaining a CT scan for her painless hematuria, but she declines. I feel that she can be discharged safely to follow-up with urology. She was referred to Dr. Ward. Patient states that she prefers to follow-up with her primary care physician or this urologist and that she does not want any further work-up here in the emergency department and she would like to be discharged. She is to return with any increased hematuria, new or worsening symptoms. JASON can be discharged safely home to follow-up and I stressed the importance of follow-up for her hematuria. Disposition is discharged home in stable condition. Lab Data Attestation: I reviewed the patient's lab results. Labs: Laboratory Results - last 24 hr 10/04/22 17:10 Urine Color Yellow Urine Clarity Sl. Cloudy Urine pH 6.5 Ur Specific [place] 1.010 Urine Protein 15 H Urine Glucose (UA) Normal Urine Ketones Negative Urine Occult Blood 250 H Urine Nitrite Negative Urine Bilirubin Negative Urine Urobilinogen Normal Ur Leukocyte Esterase Negative Urine RBC > 100 SEEN Urine WBC 0 SEEN Ur Squamous Epith Cells 0-5 SEEN Urine Bacteria 0 SEEN Urine Mucus 0 SEEN Urine Test Negative Discharge Plan Triage Chief Complaint: Complaint ED Provider: Dipesh Danielle Dx/Rx/DC Orders Clinical Impression: Hematuria Instructions: ED Hematuria Prescriptions: No Action Prenatabs FA 1 TABLET tablet 1 tab PO DAILY Primary Care Provider: Care Physician,No Primary Referrals: Danna Ward MD [Med Staff - Active Staff] - As soon as possible Care Physician,No Primary [Primary Care Provider] - Disposition Disposition: Home, Self Care
[2022-10-04 17:20] LABS: Bacteria 0 SEEN /hpf (None Seen); Mucous, Urine 0 SEEN /hpf (<or=2+); White Blood Cells 0 SEEN /hpf (0-5)
[2022-10-04 17:41] LABS: Color, Urine Yellow (Yellow); Glucose, Dipstick Normal (Normal); Ketone-Dipstick Negative (Negative); Leukocyte Esterase-Dipstick Negative /ul (Negative); Nitrite-Dipstick Negative (Negative); Occult Blood-Urine 250 /ul (Negative); Protein-Dipstick 15 mg/dl (Negative); Urine Bilirubin Dipstick Negative (Negative); Urine Clarity Sl. Cloudy (Clear); Urine Urobilinogen Normal (Normal); Urine pH 6.5 (5.0 - 8.0)
[2022-10-04 17:48] LABS: Red Blood Cells-Urine > 100 SEEN /hpf (0-5); Squamous Epithelial Cells - UA 0-5 SEEN /hpf (5-10)
[2022-10-04 17:49] LABS: Internal QC Validated? YES +Cl - CLEAR BKGD; Pregnancy, Urine Negative Negative
== END 2022-10-04 18:07 | disposition home or self-care (01) ==
PROVIDERS: Emergency Provider Emergency Medicine; Visit Provider Emergency Medicine
DX: R31.0 Gross hematuria (principal)
CPT/HCPCS: 81001; 81025; 99282

== ENCOUNTER 2025-06-22 10:12 | Inpatient (IN) | payer MEDICAID, SELFPAY ==
[2025-06-22] VITALS (16 sets, daily range): BP systolic 105–136; BP diastolic 59–76; PULSE 67–102; RESP 16–18; TEMP 36.6–37.1; O2SAT 96–97; BMI 31.4
[2025-06-22] MEDS: 0.9% Saline Lock 10 ML Syringe IV (10:15)
[2025-06-22 11:01] LABS: Hematocrit 35.7 % (37-47); Hemoglobin 12.4 g/dL (12.0-15.0); Immature Granulocytes Count 0.030 X10^3/uL (0.0-0.0); Mean Corp Hgb Conc 34.7 g/dL (32-36); Mean Corpuscular Volume 86.2 fL (81-99); Mean Platelet Vol. 11.9 fl (6.2-12.0); NRBC Flagged by Analyzer 0 % (0-5); Platelet Count 166 K/mm3 (150-450); RBC Distribution Width CV 13.4 % (11.6-14.6); RBC Distribution Width SD 41.7 fl (35.1-43.9); Red Blood Count 4.14 M/mm3 (4.2-5.4); White Blood Count 7.7 K/mm3 (4.4-11.0)
[2025-06-22 11:59] LABS: Syphilis Antibodies Nonreactive (Nonreactive)
[2025-06-22] MEDS: Lactated Ringers 1,000 ML 999 ML IV (12:27)
--- NOTE | 2025-06-22 12:34 | PCM.PN.CNM ---
Subjective Subjective Patient seen at bedside. Breathing through contractions. Due to late decelerations, IV fluid bolus started. Discussed cannot get into birthing tub at this time. Objective Data Objective Data Vital Signs: Vital Signs Temp Pulse Resp BP Pulse Ox 98.7 F 102 H 16 105/70 97 06/22/25 10:22 06/22/25 10:21 06/22/25 10:22 06/22/25 10:21 06/22/25 10:22 Weight: 184 lb Body Mass Index (BMI) 31.4 Lab / Micro Data 06/22/25 10:15 Labs: Laboratory Results - last 24 hr 06/22/25 10:15: WBC 7.7, RBC 4.14 L, Hgb 12.4, Hct 35.7 L, MCV 86.2, MCH 30.0, MCHC 34.7, RDW Std Deviation 41.7, RDW Coeff of Patrick 13.4, Plt Count 166, MPV 11.9, Immature Gran % (Auto) 0.400, Neut % (Auto) 71.3 H, Lymph % (Auto) 19.6, [place] % (Auto) 8.5, Eos % (Auto) 0.1, Baso % (Auto) 0.1, Absolute Neuts (auto) 5.5, Absolute Lymphs (auto) 1.52, Nucleated RBC % 0, Syphilis Total Ab Nonreactive, Blood Type O POSITIVE, Antibody Screen NEGATIVE Assessment & Plan (1) 39 weeks gestation of : (2) Multiparity: (3) Spontaneous onset of labor: PLAN: Plan Discussed late decelerations with patient and need for continuous EFM Verbally consents for AROM AROM for clear/bloody fluid CE /-1- head applied IV fluid bolus started Continue to monitor closely Dr. Cuenca updated on A&P
--- NOTE | 2025-06-22 12:36 | HP.PCM.OB_ITS ---
HPI - General General Date of Admission: 06/22/25 HPI Narrative CHUCKIE BIGGS, is a 30 F at 38.5 weeks gestation who presents in spontaneous onset of active labor. She desires unmedicated labor and delivery- possible water . Maternal Data Information KOREY Calculator Estimated Delivery Date Method Current WG Current Estimate 07/01/25 Manual 38w 5d Gestational age: 38.5 PFSH PFS Medical History (Updated 06/22/25 @ 12:41 by Cristina Young CNM) macrosomia Home Medications ?Medication ?Instructions ?Recorded ?Last Taken ?Type vits,calcium no.78-iron 1 tab PO DAILY pregna ncy 12/11/17 06/21/25 10:32 History fumarate-folic acid 29 mg-1 mg tablet (Prenatabs FA) Allergy/AdvReac Type Severity Reaction Status Date / Time No Known Allergies Allergy Verified 06/22/25 10:32 Social History Smoking Status: Never smoker History Elective abortions Hx Para 3 Spontaneous abortions Hx # Term Pregnancies Ectopic pregnancies Hx # Pregnancies Multiple births # of living children NST FHR Rate Baby A Baseline: 140 Variability:: Moderate Accelerations:: 15 x 15 Decelerations:: None NST Reactive:: Yes FHR Category:: Category I Uterine Activity:: 1-3 minutes ROS Eyes Eyes: Denies blurry vision, change in vision or spots in vision ENT HEENT: Denies dizziness or headache(s) Cardiovascular Cardiovascular: Denies abdominal pain, chest pain or dyspnea Respiratory/Chest Respiratory/Chest: Denies cough, dyspnea, shortness of breath at rest or shortness of breath with exertion Gastrointestinal Gastrointestinal: Denies abdominal pain, diarrhea or vomiting Genitourinary Genitourinary: Denies change in urinary stream, difficulty urinating or dysuria Musculoskeletal Musculoskeletal: Reports none Integumentary Integumentary: Denies rash Neurologic Neurologic: Denies dizziness, headache(s), memory loss or weakness Psychiatric Psychiatric: Reports none Vital Signs Vital Signs Vital Signs: 06/22/25 10:05 06/22/25 10:05 06/22/25 10:05 Temperature Temperature Source Pulse Rate 101 H Respiratory Rate Blood Pressure 136/75 H BP Systolic 136 BP Diastolic 75 Pulse Ox 97 06/22/25 10:21 06/22/25 10:21 06/22/25 10:22 Temperature Temperature Source Temporal Pulse Rate 102 H Respiratory Rate Blood Pressure 105/70 BP Systolic 105 BP Diastolic 70 Pulse Ox 06/22/25 10:22 06/22/25 10:22 06/22/25 10:22 Temperature 98.7 F Temperature Source Pulse Rate Respiratory Rate 16 Blood Pressure BP Systolic BP Diastolic Pulse Ox 97 Weight Weight: 184 lb Body Mass Index (BMI) 31.4 Physical Exam Const alert, oriented x3 and no apparent distress General Appearance: cooperative Orientation / Consciousness: awake Exam Limitations: no limitations HEENT normocephalic Head and Scalp: normal to inspection Eyes General Eye: normal appearance of both eyes Neck full ROM and no lymphadenopathy Lymph Lymphatic: no lymphadenopathy noted Chest inspection of chest normal Resp normal respiratory effort, normal air movement and clear to auscultation bilaterally Effort and Inspection: able to speak in complete sentences and symmetric chest movement Cardio regular rate and regular rhythm GI normal to inspection, nondistended, normoactive bowel sounds Manual OB Exam: presentation cephalic Back/Spine normal ROM Extremity full ROM and no calf tenderness Skin no rashes or lesions noted General Skin Exam: no breakdown Neuro oriented x3 and CN's II-XII intact bilaterally Psych mental status grossly normal and thought process normal Labs Labs Labs: Blood Type O POSITIVE Antibody Screen NEGATIVE Hct, (37-47) 35.7 % L Hgb, (12.0-15.0) 12.4 g/dL Syphilis Total Ab, (Nonreactive) Nonreactive Rhogam given: No Assessment & Plan (1) 38 weeks gestation of : (2) Spontaneous onset of labor: (3) Multiparity: (4) LGA (large for gestational age) fetus: PLAN: Plan CE Admit to labor and delivery Routine labs SL IA if appropriate GBS negative Dr. Cuenca notified of admission and is collaborating physician
[2025-06-22] MEDS: Oxytocin 15 Units/NS 250ml 15 UNITS/250 ML IV.SOLN 334 UNITS IV (13:37)
--- NOTE | 2025-06-22 13:48 | OB.VAGDELI_ITS ---
Assessment & Plan (1) Care and examination of lactating mother: (2) LGA (large for gestational age) fetus: (3) 38 weeks gestation of : (4) Spontaneous onset of labor: (5) (spontaneous vaginal delivery): Maternal Data Information KOREY Calculator Estimated Delivery Date Method Current WG Current Estimate 07/01/25 Manual 38w 5d Gestational age: 38.5 weeks gestation Vaginal Delivery Maternal Presentation Maternal Presentation: Active Labor Vaginal Delivery Information Procedure Performed: Spontaneous Vaginal Delivery Surgeon/Practitioner: Cristina Young Date of Procedure: 06/22/25 Pre-Procedure Diagnosis: Term gestation, Spontaneous onset of active labor Post-Procedure Diagnosis: , Live female infant Type of anesthesia: None Estimated Blood Loss: 100 Time of Delivery: 13:34 Findings Description of procedure: Provided bedside support to patient. Side lying release done and patient began to involuntarily bear down with contractions. Repositioned patient and head delivering. Anterior shoulder and remainder of delivered without force,, delay, or traction. Vigorous female was delivered atraumatically and placed on maternal abdomen. Pitocin IV started for active management of the third stage of labor. 3 vessel cord clamped and cut by FOB after delay and infant placed immediately skin to skin with patient. Cord blood collected and sent.Placenta delivered spontaneously and intact. After inspection, vagina and perineum are intact. Vaginal sweep performed. Fundus is firm 2 below U and bleeding is hemostatic. Sponge and sharps counts correct. Patient and bonding well at this time. Dr. Cuenca notified of delivery. Routine post orders placed. Presentation: Vertex Amniotic Membrane Rupture Type: Artificial Amniotic Fluid Description: Clear Placental Delivery Description: Spontaneous Placenta Disposition: [facility] Specimen collected: No Cord Vessel Description: 3 Vessels Cord Entanglement: None Nuchal Cord Compression: Without compression Infant A Gender: Female (1 minute): 8 (5 minute): 8 Delayed Cord Clamping: Yes [employer] pre [employer] manager: No Post Vaginal Deli Medications given after delivery: IV Pitocin Episiotomy Description: None Laceration: None Complication Complications: No
[2025-06-22] MEDS: Oxytocin 15 Units/NS 250ml 15 UNITS/250 ML IV.SOLN 83 UNITS IV (14:08)
[2025-06-23] VITALS (9 sets, daily range): BP systolic 98–118; BP diastolic 62–83; PULSE 66–80; RESP 16–17; TEMP 36.4–36.9; O2SAT 96–98
--- NOTE | 2025-06-23 06:59 | DS.PCM_ITS ---
Providers Date of Admission: 06/22/25 Primary Care Physician: Lacey Primary Care Phys Reason For Visit: VAGINAL DELIVERY Diagnosis Discharge Diagnosis (1) Care and examination of lactating mother: Status: Acute Code(s): Z39.1 - Encounter for care and examination of lactating mother (2) 38 weeks gestation of : Status: Acute Code(s): Z3A.38 - 38 weeks gestation of (3) Spontaneous onset of labor: Status: Acute (4) (spontaneous vaginal delivery): Status: Acute Code(s): O80 - Encounter for full-term uncomplicated delivery Plan PPD 1 Routine care independently Desires d/c home at 24 hours Medications at Discharge Home Medications vits,calcium no.78-iron fumarate-folic acid 29 mg-1 mg tablet (Prenatabs FA) 1 tab PO DAILY 12/11/17 acetaminophen 500 mg tablet 1,000 mg (2 x 500 mg) PO Q6H PRN PRN Pain 1-10 Or Fever #0 tabs 06/23/25 Hospital Course Operations None Procedures None Summary of Care Provided Minutes Spent on Discharge: 15 Hospital Course: Patient had vaginal delivery. Hospital course was uneventful. Physical Exam Narrative Patient seen at bedside. Denies pain. Ambulating and voiding without difficulty. Lochia decreased. Desires discharge home today. Const alert and oriented x3 General Appearance: Negative for in distress HEENT normocephalic Eyes General Eye: normal appearance of both eyes Neck General: normal visual inspection Chest Chest: symmetrical chest wall rise Resp normal respiratory effort and normal air movement Effort and Inspection: symmetric chest movement; Negative for tachypneic Auscultation: clear to auscultation bilaterally Cardio regular rate and regular rhythm Peripheral Pulses: pulses 2+ throughout GI normal to inspection, nondistended, normoactive bowel sounds Narrative: Ice to perineum OB / External & Speculum: vaginal bleeding and other Lochia decreasing Uterus Palpation: uterus fundus firm (Below U) Extremity normal to inspection, full ROM and normal capillary refill Skin no rashes or lesions noted Neuro oriented x3, CN's II-XII intact bilaterally and gait normal Psych mental status grossly normal, thought process normal and activity/motor behavior normal Weight / BMI Weight Weight: 184 lb Body Mass Index (BMI) 31.4 ABG / Lab / Microbiology Data 06/22/25 10:15 Laboratory: Laboratory Results - last 24 hr 06/22/25 10:15: WBC 7.7, RBC 4.14 L, Hgb 12.4, Hct 35.7 L, MCV 86.2, MCH 30.0, MCHC 34.7, RDW Std Deviation 41.7, RDW Coeff of Patrick 13.4, Plt Count 166, MPV 11.9, Immature Gran % (Auto) 0.400, Neut % (Auto) 71.3 H, Lymph % (Auto) 19.6, [place] % (Auto) 8.5, Eos % (Auto) 0.1, Baso % (Auto) 0.1, Absolute Neuts (auto) 5.5, Absolute Lymphs (auto) 1.52, Nucleated RBC % 0, Syphilis Total Ab Nonreactive, Blood Type O POSITIVE, Antibody Screen NEGATIVE D/C Instructions Discharge Activity: Return to Normal Activity, No Restrictions, May Drive, May Shower and May Take a Tub Bath (Warm water only. No bath salts, soaps, bubbles) May resume sexual activity in: 6-8 weeks Weight Bearing Status: Weight bearing as tolerated Call your doctor if you observe: Fever of 101 or Higher, Inability to urinate, Using more than 1 pad per hour, Shortness of breath, Dizziness, Chest pain, Calf discomfort and Uncontrolled pain DC O2, CPAP, BIPAP Needs Home O2 Discharge instructions: No Please Follow Up With: [facility] Nancy HARDY When: 2 weeks in office or virtual Meaningful Use Info Meaningful Use Meaningful Use Diagnoses (Choose all that apply): None applicable Discharge Plan Admission Admit Date/Time: 06/22/25 10:12 Primary Reason for Your Visit: Labor and Delivery Attending Provider: Cristina Young Primary Care Provider: Care Physician,No Primary Discharge Orders/Prescriptions Prescriptions: New acetaminophen 500 mg Tablet 1,000 mg PO Q6H PRN PRN (Reason: Pain 1-10 Or Fever) Qty: 0 0RF Continued Prenatabs FA 1 TABLET tablet 1 tab PO DAILY Referrals / Follow Up: Cristina Young CNM [Med Staff - Adv Practice Prof, Obstetrics] Care Physician,No Primary [Primary Care Provider, Medical] Disposition Disposition (needs filled in before D/C Order can be placed): Home, Self Care
--- OUTSIDE RECORDS SUMMARY | 2025-06-23 23:04 | XMS RPT_ITS | CCD ---
Author Organization [facility] Care Team Providers Care Library Manager Name Role Phone Unavailable Primary Care Provider UnavailDipesh Arrieta Attending Unavailable Care Physician, No Primary Primary Care Unava ilable Hannah, Cristina Attending Unavailable Cristina Young Admitting Unavailable Care Physician, No Primary Primary Care Unava ilable Unavailable Primary Care Provider Unavailabl e CHRISTINA, BAUTISTA Attending Unavailable GUADARRAMA, WEN Referring Unavailable HAURY, BAUTISTA Referring Unavailable HAURY, BAUTISTA Referring Unavailable PLOTTS, CRISTINA Referring Unavailable GUADARRAMA, WEN Referring Unavailable GUNJAN, SONYA Attending Unavailable GUADARRAMA, WEN Referring Unavailable HAURY, BAUTISTA Attending Unavailable PLOTTS, CRISTINA Attending Unavailable GUADARRAMA, WEN Attending Unavailable SELF Referring Unavailable JOANNA AMARAL Attending Unavailable ARIELA DEE Attending Unavail able MUNIR, JOANNA L Referring Unavailable GUADARRAMA, WEN Referring Unavailable GUNJAN, SONYA Attending Unavailable GUADARRAMA, WEN Referring Unavailable GUADARRAMA, WEN Referring Unavailable PLOTTS, CRISTINA Attending Unavailable PLOTTS, CRISTINA Referring Unavailable GUNJAN, SONYA Attending Unavailable PLOTTS, CRISTINA Attending Unavailable WISWELLRACHEL Attending Unavailable PLOTTS, CRISTINA Attending Unavailable Medications Current Medications Medication Drug Class(es) Dates Sig (Normalized) Sig (Original) aspirin 81 mg delayed release oral tablet (7 sources) Platelet Aggregation Inhibitor, Nonsteroidal Anti-inflammatory Drug Start: 11-17-2024 End: 01-07-2025 take 1 tablet by mouth once daily aspirin, enteric coated (ECOTRIN LOW STRENGTH) 81 mg EC tablet Indications: Encounter for supervision of other normal in first trimester (HCC) Take 1 tablet by mouth once daily. 90 tablet 3 11/17/2024 01/07/2025 Discontinued PNV no.95/ferrous fum/folic ac ( ORAL) (20 sources) PNV no.95/ferrou s fum/folic ac ( ORAL) Take by mouth. Active PNV no.95/ferrou s fum/folic ac ( ORAL) Take by mouth. 0 Active Comment on above: Take by mouth. Vit,Akbg67-Tiol-Nkqw c (Prenatabs Fa) 1 TABLET tablet (2 sources) Start: 12-11-2017 take 1 tablet by mouth once daily Vit,Kzda94-Dqfj-Hpxx c (Prenatabs Fa) 1 TABLET tablet Active 1 TABLET PO DAILY December 10, 2017 11:00pm Start: 12-11-2017 take 1 tablet by jamie th once daily Vit,Vjcb08-Urzg-Xaebt (Prenatab s Fa) 1 TABLET tablet Active 1 TABLET PO DAILY December 11, 2017 12:00am Problems Active Problems Problem Classification Problem Date Documented Date Episodic/Chronic Administrative/social admission (3 sources) Multiparous; Translations: [Problems related to multiparity] Episodic Diabetes mellitus without complication (13 sources) Abnormal glucose tolerance test; Translations: [Other abnormal glucose] Onset: 03-31-2025 03-31-2025 Episodic Genitourinary symptoms and ill-defined conditions (1 source) Blood in urine; Translations: [Hematuria, unspecified] Episodic Other complications of ; puerperium affecting management of mother (1 source) painful; Translations: [Other disorders of breast associated with and the puerperium] Episodic Other complications of (1 source) Anemia during - baby not yet delivered; Translations: [Anemia complicating , third trimester] Chronic Other complications of (11 sources) Excessive growth affecting management of mother; Translations: [Maternal care for excessive growth, unspecified trimester, not applicable or unspecified] Onset: 05-16-2025 Episodic Other complications of (5 sources) Uterine size for dates discrepancy; Translations: [Uterine size-date discrepancy, third trimester] Episodic Other complications of (1 source) Maternal care for excessive growth, third trimester, not applicable or unspecified; Translations: [Macrosomia of fetus affecting management of mother in third trimester, single or unspecified fetus (HCC)] Onset: 05-17-2025 Episodic Other complications of (1 source) Uterine size-date discrepancy, third trimester; Translations: [Uterine size-date discrepancy, third trimester (HCC)] Onset: 05-16-2025 Episodic Other and delivery including normal (20 sources) Normal ; Translations: [Encounter for supervision of other normal , second trimester] Onset: 04-28-2017 Resolved: 05-23-2022 Episodic Other screening for suspected conditions (not mental disorders or infectious disease) (6 sources) Finding related to ; Translations: [Encounter for suspected placental problem ruled out] Onset: 03-31-2025 Episodic Residual codes; unclassified (1 source) Gestation period, 24 weeks; Translations: [24 weeks gestation of ] Episodic Residual codes; unclassified (1 source) Gestation period, 28 weeks; Translations: [28 weeks gestation of ] Episodic Residual codes; unclassified (1 source) Gestation period, 30 weeks; Translations: [30 weeks gestation of ] Episodic Residual codes; unclassified (4 sources) Gestation period, 32 weeks; Translations: [32 weeks gestation of ] Episodic Residual codes; unclassified (2 sources) Gestation period, 34 weeks; Translations: [34 weeks gestation of ] Episodic Residual codes; unclassified (3 sources) Gestation period, 36 weeks; Translations: [36 weeks gestation of ] Episodic Residual codes; unclassified (1 source) Gestation period, 37 weeks; Translations: [37 weeks gestation of ] Episodic Residual codes; unclassified (3 sources) Gestation period, 38 weeks; Translations: [38 weeks gestation of ] Episodic Residual codes; unclassified (1 source) 38 weeks gestation of ; Translations: [ state, incidental] Episodic Residual codes; unclassified (2 sources) Gestation period, 11 weeks; Translations: [11 weeks gestation of ] 12-14-2024 Episodic Residual codes; unclassified (1 source) Gestation period, 15 weeks; Translations: [15 weeks gestation of ] 01-07-2025 Episodic Residual codes; unclassified (2 sources) Gestation period, 19 weeks; Translations: [19 weeks gestation of ] 02-04-2025 Episodic Residual codes; unclassified (1 source) Gestation period, 23 weeks; Translations: [23 weeks gestation of ] 03-04-2025 Episodic Residual codes; unclassified (1 source) Gestation period, 26 weeks; Translations: [26 weeks gestation of ] 03-31-2025 Episodic Residual codes; unclassified (1 source) Gestation period, 29 weeks; Translations: [29 weeks gestation of ] 04-15-2025 Episodic Residual codes; unclassified (1 source) 37 weeks gestation of ; Translations: [37 weeks gestation of (HCC)] Onset: 06-16-2025 Episodic Residual codes; unclassified (1 source) 36 weeks gestation of ; Translations: [36 weeks gestation of (HCC)] Onset: 06-03-2025 Episodic Residual codes; unclassified (1 source) 34 weeks gestation of ; Translations: [34 weeks gestation of (HCC)] Onset: 05-20-2025 Episodic Residual codes; unclassified (1 source) 32 weeks gestation of ; Translations: [32 weeks gestation of (HCC)] Onset: 05-16-2025 Episodic Residual codes; unclassified (1 source) 30 weeks gestation of ; Translations: [30 weeks gestation of (HCC)] Onset: 04-28-2025 Episodic Residual codes; unclassified (1 source) 29 weeks gestation of ; Translations: [29 weeks gestation of (HCC)] Onset: 04-15-2025 Episodic Residual codes; unclassified (1 source) 23 weeks gestation of ; Translations: [23 weeks gestation of (HCC)] Onset: 03-31-2025 Episodic Residual codes; unclassified (1 source) 26 weeks gestation of ; Translations: [26 weeks gestation of (HCC)] Onset: 03-31-2025 Episodic Unclassified (3 sources) Spontaneous onset of labor; Translations: [Spontaneous onset of labor] Unclassified (20 sources) [facility] Education - COMMON Onset: 11-17-2024 11-17-2024 Unclassified (20 sources) Education - [place] Onset: 11-17-2024 11-17-2024 Past or Other Problems Problem Classification Problem Date Documented Da te Episodic/Chronic Hemorrhage during ; abruptio placenta; placenta previa (20 sources) Low lying placenta; Translations: [Low lying placenta NOS or without hemorrhage, unspecified trimester] Onset: 11-30-2021 Resolved: 05-23-2022 12-03-2021 Episodic Nonmalignant breast conditions (20 sources) Breast lump; Translations: [Unspecified lump in unspecified breast] Onset: 06-01-2010 Resolved: 06-23-2012 06-23-2012 Episodic Other and unspecified benign neoplasm (20 sources) Fibroadenoma of breast; Translations: [Benign neoplasm of unspecified breast] Onset: 06-23-2012 06-23-2012 Episodic Other complications of (20 sources) Supervision of with history of infertility, third trimester; Translations: [Supervision of high-risk with history of infertility] Onset: 04-28-2017 Resolved: 02-02-2018 02-02-2018 Episodic Other complications of (1 source) with inconclusive viability, not applicable or unspecified; Translations: [, location unknown] Onset: 11-17-2024 Episodic Other skin disorders (20 sources) Acne; Translations: [Other acne] Onset: 09-28-2008 Resolved: 03-31-2025 09-28-2008 Episodic Residual codes; unclassified (1 source) 19 weeks gestation of ; Translations: [19 weeks gestation of (HCC)] Onset: 02-04-2025 Episodic Residual codes; unclassified (1 source) 15 weeks gestation of ; Translations: [15 weeks gestation of (HCC)] Onset: 01-07-2025 Episodic Results Test Name Value Interpretation Reference Range Facil ity ROUTINE, GROUP B ST REPTOCOCCUS BY PCRon 06-03-2025 ROUTINE, GROUP B STREPTOCOCCUS BY PCR Not detected Normal [facility] Comment on above: Performed By: #### G TGSTF #### [facility] CLIA [id number] [address] [place] [address] [place] URINE OB DIP B/Oon 5 Glucose Ql (U) Negative Neg mg/dL [facility] Protein.monoclonal (U) [Mass/Vol] Negative Neg mg/dL [facility] URINE OB DIP B/Oon 5 Glucose Ql (U) Negative Neg mg/dL [facility] Interpretation and review of laboratory results Normal [facility] Protein.monoclonal (U) [Mass/Vol] Negative Neg mg/dL [facility] Examination level ultrasound on 05-16-2025 [facility] Radiology Study observation (narrative) [facility] Kaden 04-19-2025 CNPN Telephone (OGFVWE) NELDA BIGGS ([id number]) 1995 F Date Time Provider Department 04/19/25 NURSE WELFARE SUPERVISOR [facility] During your visit today, we recorded the following information about you: Bacilio Pelletier, RN 04/19/2025 1:45 PM Signed 3rd risk assessment form submitted 04/19/25 Bacilio Pelletier RN Allergies As of Date: 04/19/2025 (No Known Allergies) Date Reviewed: 04/15/2025 Reviewed by: Medina Tee MA - Fully Assessed Reason for Visit: PRAF [4193] Prescriptions as of 04/19/2025 - PNV no.95/ferrous fum/folic ac ( ORAL) Take by mouth. Problem List As Of Date 04/19/2025 Noted Resolved Other acne [L70.8] 09/28/2008 03/31/2025 Breast lump in female [N63.0] 06/01/2010 06/23/2012 Fibroadenoma of breast [D24.9] 06/23/2012 Supervision of with history of infert*04/28/2017 02/02/2018 with uncertain dates, antepartum, uns*04/28/2017 02/02/2018 Encounter for supervision of normal i*03/12/2019 05/23/2022 Patient request for diagnostic testing [Z01.89] 08/30/2021 05/23/2022 Low-lying placenta [O44.40] 11/30/2021 05/23/2022 Supervision of normal (HCC) [Z34.90] 11/17/2024 Elevated glucose tolerance test [R73.09] 03/31/2025 Encounter Status:Closed by BACILIO PELLETIER on 04/19/25 Normal [facility] GLUCOSE GESTATIONAL, 1 HOURo n 04-06-2025 Glucose 1 Hr post Unsp challenge [Mass/Vol] 188 mg/dL High 74-179 [facility] Comment on above: Order Comment: Jayda lacey Type: BLOOD SPECIMEN Ordering Facility: [facility] Address: [address] [place] [address] Result Comment: [facility] Congress of Obstetricians and Gynecologists (Saucedo/Drean) guidelines state gestational diabetes mellitus is present when 2 or more of the plasma glucose concentrations meet or exceed the following levels: fastin mg/dl, 1 hr: 180 mg/dl, 2 hr: 155 mg/dl, and 3 hr: 140 mg/dl. Performed By: #### T SPN #### [facility] [place] [id number] [address] [place] [address] [place] GLUCOSE GESTATIONAL, 2 HOURo n 04-06-2025 Glucose 2 Hr post Unsp challenge [Mass/Vol] 145 mg/dL Normal 74-154 [facility] Comment on above: Order Comment: Jayda lacey Type: BLOOD SPECIMEN Ordering Facility: [facility] Address: [address] [place] [address] Result Comment: [facility] Congress of Obstetricians and Gynecologists (Saucedo/[place]ristinstan) guidelines state gestational diabetes mellitus is present when 2 or more of the plasma glucose concentrations meet or exceed the following levels: fastin mg/dl, 1 hr: 180 mg/dl, 2 hr: 155 mg/dl, and 3 hr: 140 mg/dl. Performed By: #### T SPN #### [facility] [place] [id number] [address] [place] [address] [place] GLUCOSE GESTATIONAL, 3 HOURo n 04-06-2025 Glucose 3 Hr post Unsp challenge [Mass/Vol] 60 mg/dL Low 74-139 [facility] Comment on above: Order Comment: Jayda lacey Type: FLUID SPECIMEN Ordering Facility: [facility] Address: [address] [place] [address] Result Comment: [facility] Congress of Obstetricians and Gynecologists (Saucedo/Kristinstan) guidelines state gestational diabetes mellitus is present when 2 or more of the plasma glucose concentrations meet or exceed the following levels: fastin mg/dl, 1 hr: 180 mg/dl, 2 hr: 155 mg/dl, and 3 hr: 140 mg/dl. Performed By: #### L [id number] #### [facility] CLIA [id number] [address] [place] [address] [place] GLUCOSE GESTATIONAL, FASTING on 04-06-2025 Glucose post fast [Mass/Vol] 91 mg/dL Normal 74-94 [facility] Comment on above: Order Comment: Speci men Type: BLOOD SPECIMEN Ordering Facility: [facility] Address: [address] [place] [address] Result Comment: [facility] Congress of Obstetricians and Gynecologists (Sheryl/Td) guidelines state gestational diabetes mellitus is present when 2 or more of the plasma glucose concentrations meet or exceed the following levels: fastin mg/dl, 1 hr: 180 mg/dl, 2 hr: 155 mg/dl, and 3 hr: 140 mg/dl. Performed By: #### G TGSTF #### [facility] CLIA [id number] [address] [place] [address] [place] CBC W Auto Differential pane l (Bld)on 03-31-2025 Basophils (Bld) [#/Vol] 10*3/uL Normal <0.11 [facility] Comment on above: Order Comment: Jarrodi deepthi Type: BLOOD SPECIMEN Ordering Facility: [facility] Address: [address] [place] [address] Performed By: #### G TGSTF #### [facility] CLIA [id number] [address] [place] [address] [place] Basophils/100 WBC (Bld) 0.3 % Normal [facility] Comment on above: Order Comment: Jarrodi men Type: BLOOD SPECIMEN Ordering Facility: [facility] Address: [address] [place] [address] Performed By: #### G TGSTF #### [facility] CLIA [id number] [address] [place] [address] [place] Differential cell count method Nom (Bld) Auto Normal [facility] Comment on above: Order Comment: Speci men Type: BLOOD SPECIMEN Ordering Facility: [facility] Address: [address] [place] [address] Performed By: #### G TGSTF #### [facility] CLIA [id number] [address] [place] [address] [place] Eosinophils (Bld) [#/Vol] 0.03 10*3/uL Normal <0.46 [facility] Comment on above: Order Comment: Speci men Type: BLOOD SPECIMEN Ordering Facility: [facility] Address: [address] [place] [address] Performed By: #### G TGSTF #### [facility] CLIA [id number] [address] [place] [address] [place] Eosinophils/100 WBC (Bld) 0.4 % Normal [facility] Comment on above: Order Comment: Speci men Type: BLOOD SPECIMEN Ordering Facility: [facility] Address: [address] [place] [address] Performed By: #### G TGSTF #### [id number] [address] [place] [address] [place] Erythrocyte distribution width (RBC) [Ratio] 13.4 % Normal 11.5-15.0 [facility] Comment on above: Order Comment: Speci men Type: BLOOD SPECIMEN Ordering Facility: [facility] Address: [address] [place] [address] Performed By: #### G TGSTF #### [id number] [address] [place] [address] [place] Hematocrit (Bld) [Volume fraction] 33.4 % Low 36.0-46.0 [facility] Comment on above: Order Comment: Speci men Type: BLOOD SPECIMEN Ordering Facility: [facility] Address: [address] [place] [address] Performed By: #### G TGSTF #### [facility] CLIA [id number] [address] [place] [address] [place] Hemoglobin (Bld) [Mass/Vol] 11.6 g/dL Normal 11.5-15.5 [facility] Comment on above: Order Comment: Speci men Type: BLOOD SPECIMEN Ordering Facility: [facility] Address: [address] [place] [address] Performed By: #### G TGSTF #### [facility] CLIA [id number] [address] [place] [address] [place] Immature granulocytes (Bld) [#/Vol] 10*3/uL Normal <0.10 [facility] Comment on above: Order Comment: Speci men Type: BLOOD SPECIMEN Ordering Facility: [facility] Address: [address] [place] [address] Performed By: #### G TGSTF #### [facility] CLIA [id number] [address] [place] [address] [place] Immature granulocytes/100 WBC (Bld) 0.3 % Normal [facility] Comment on above: Order Comment: Speci men Type: BLOOD SPECIMEN Ordering Facility: [facility] Address: [address] [place] [address] Performed By: #### G TGSTF #### [facility] [id number] [address] [place] [address] [place] Lymphocytes (Bld) [#/Vol] 1.78 10*3/uL Normal 1.00-4.00 [facility] Comment on above: Order Comment: Speci men Type: BLOOD SPECIMEN Ordering Facility: [facility] Address: [address] [place] [address] Performed By: #### G TGSTF #### [facility] CLIA [id number] [address] [place] [address] [place] Lymphocytes/100 WBC (Bld) 24.7 % Normal [facility] Comment on above: Order Comment: Speci men Type: BLOOD SPECIMEN Ordering Facility: [facility] Address: [address] [place] [address] Performed By: #### G TGSTF #### [facility] CLIA [id number] [address] [place] [address] [place] MCH (RBC) [Entitic mass] 30.1 pg Normal 26.0-34.0 [facility] Comment on above: Order Comment: Speci men Type: BLOOD SPECIMEN Ordering Facility: [facility] Address: [address] [place] [address] Performed By: #### G TGSTF #### [facility] CLIA [id number] [address] [place] [address] [place] MCHC (RBC) [Mass/Vol] 34.7 g/dL Normal 30.5-36.0 [facility] Comment on above: Order Comment: Speci men Type: BLOOD SPECIMEN Ordering Facility: [facility] Address: [address] [place] [address] Performed By: #### G TGSTF #### [facility] [id number] [address] [place] [address] [place] MCV (RBC) [Entitic vol] 86.8 fL Normal 80.0-100.0 [facility] Comment on above: Order Comment: Speci men Type: BLOOD SPECIMEN Ordering Facility: [facility] Address: [address] [place] [address] Performed By: #### G TGSTF #### [facility] [id number] [address] [place] [address] [place] Monocytes (Bld) [#/Vol] 0.55 10*3/uL Normal <0.87 [facility] Comment on above: Order Comment: Speci men Type: BLOOD SPECIMEN Ordering Facility: [facility] Address: [address] [place] [address] Performed By: #### G TGSTF #### [facility] CLIA [id number] [address] [place] [address] [place] Monocytes/100 WBC (Bld) 7.6 % Normal [facility] Comment on above: Order Comment: Speci men Type: BLOOD SPECIMEN Ordering Facility: [facility] Address: [address] [place] [address] Performed By: #### G TGSTF #### [facility] CLIA [id number] [address] [place] [address] [place] Neutrophils (Bld) [#/Vol] 4.82 10*3/uL Normal 1.45-7.50 [facility] Comment on above: Order Comment: Speci men Type: BLOOD SPECIMEN Ordering Facility: [facility] Address: [address] [place] [address] Performed By: #### G TGSTF #### [facility] CLIA [id number] [address] [place] [address] [place] Neutrophils/100 WBC (Bld) 66.7 % Normal [facility] Comment on above: Order Comment: Speci men Type: BLOOD SPECIMEN Ordering Facility: [facility] Address: [address] [place] [address] Performed By: #### G TGSTF #### [facility] [id number] [address] [place] [address] [place] Nucleated RBC (Bld) [#/Vol] 10*3/uL Normal <0.01 [facility] Comment on above: Order Comment: Speci men Type: BLOOD SPECIMEN Ordering Facility: [facility] Address: [address] [place] [address] Performed By: #### G TGSTF #### [facility] CLIA [id number] [address] [place] [address] [place] Nucleated RBC/100 WBC (Bld) [Ratio] 0.0 /100 WBC Normal [facility] Comment on above: Order Comment: Speci men Type: BLOOD SPECIMEN Ordering Facility: [facility] Address: [address] [place] [address] Performed By: #### G TGSTF #### [facility] CLIA [id number] [address] [place] [address] [place] Platelet mean volume (Bld) [Entitic vol] 11.0 fL Normal 9.0-12.7 [facility] Comment on above: Order Comment: Speci men Type: BLOOD SPECIMEN Ordering Facility: [facility] Address: [address] [place] [address] Performed By: #### G TGSTF #### [facility] CLIA [id number] [address] [place] [address] [place] Platelets (Bld) [#/Vol] 184 10*3/uL Normal 150-400 [facility] Comment on above: Order Comment: Speci men Type: BLOOD SPECIMEN Ordering Facility: [facility] Address: [address] [place] [address] Performed By: #### G TGSTF #### [facility] CLIA [id number] [address] [place] [address] [place] RBC (Bld) [#/Vol] 3.85 10*6/uL Low 3.90-5.20 [facility] Comment on above: Order Comment: Speci men Type: BLOOD SPECIMEN Ordering Facility: [facility] Address: [address] [place] [address] Performed By: #### G TGSTF #### [facility] CLIA [id number] [address] [place] [address] [place] WBC (Bld) [#/Vol] 7.22 10*3/uL Normal 3.70-11.00 [facility] Comment on above: Order Comment: Speci men Type: BLOOD SPECIMEN Ordering Facility: [facility] Address: [address] [place] [address] Performed By: #### G TGSTF #### [facility] CLIA [id number] [address] [place] [address] [place] GESTATIONAL GLUCOSE SCREEN, 1-HOUR, 50 GRAM, NON-FASTINGon 03-31-2025 Glucose [Mass/Vol] 145 mg/dL High 74-134 [facility] Comment on above: Order Comment: Jarrodi men Type: FLUID SPECIMEN Ordering Facility: [facility] Address: [address] [place] [address] Result Comment: [facility] Congress of Obstetricians and Gynecologists (Sheryl/Td) guidelines state a gestational diabetes mellitus positive screen is made, in women not previously diagnosed with overt diabetes, when the 1 hr plasma glucose level is equal to or above 140 mg/dL. [facility] [employer] [facility] and [facility] recommends a 135 mg/dL cutoff. Performed By: #### L [id number] #### [facility] CLIA [id number] [address] [place] [address] [place] Reagin and Treponema pallidu m IgG and IgM [Interp]on 03-31-2025 T. pallidum IgG+IgM IA Ql (S) Non-Reactive Normal Nonreactive [facility] Comment on above: Order Comment: Jayda lacey Type: BLOOD SPECIMEN Ordering Facility: [facility] Address: [address] [place] [address] Performed By: #### T SPN #### [facility] CLIA [id number] [address] [place] [address] [place] Reagin+T pallidum IgG+IgM Se rPl-Impon 03-31-2025 Reagin and Treponema pallidum IgG and IgM [Interp] Cannot exclude recent Treponemal infection if specimen collected within 7-10 days after appearance of suspect lesions or 2-3 weeks after an exposure. Clinical correlation is required. Normal [facility] Comment on above: Order Comment: Jayda lacey Type: BLOOD SPECIMEN Ordering Facility: [facility] Address: [address] [place] [address] Performed By: #### T SPN #### [facility] CLIA [id number] [address] [place] [address] OF [facility] Kaden 03-07-2025 CNPN Telephone (OGFVWE) NELDA BIGGS ([id number]) 1995 F Date Time Provider Department 03/07/25 NURSE WELFARE SUPERVISOR [facility] [place] OGFVWE During your visit today, we recorded the following information about you: Bacilio Pelletier, RN 03/07/2025 8:47 AM Signed 2nd risk assessment form submitted 03/07/25 Bacilio Pelletier RN Allergies As of Date: 03/07/2025 (No Known Allergies) Date Reviewed: 03/04/2025 Reviewed by: Bautista Lay APRN.ANIMAL HUSBANDRY PROFESSOR - Fully Assessed Reason for Visit: PRAF [4193] Prescriptions as of 03/07/2025 - PNV no.95/ferrous fum/folic ac ( ORAL) Take by mouth. Problem List As Of Date 03/07/2025 Noted Resolved ACNE NEC [L70.8] 09/28/2008 Breast lump in female [N63.0] 06/01/2010 06/23/2012 Fibroadenoma of breast [D24.9] 06/23/2012 Supervision of with history of infert*04/28/2017 02/02/2018 with uncertain dates, antepartum, uns*04/28/2017 02/02/2018 Encounter for supervision of normal i*03/12/2019 05/23/2022 Patient request for diagnostic testing [Z01.89] 08/30/2021 05/23/2022 Low-lying placenta [O44.40] 11/30/2021 05/23/2022 Supervision of normal (HCC) [Z34.90] 11/17/2024 Encounter Status:Closed by BACILIO PELLETIER on 03/07/25 Normal [facility] Examination level ultrasound on 02-04-2025 Indication Standard anatomic survey Impression The patient is referred for a standard anatomic survey. - Single, live, intrauterine . - biometry is consistent with the established gestational age. - No malformations were visualized on a complete standard anatomic survey. - The amniotic fluid volume is normal amount. - The placenta is anterior, fundal. - The Transabdominal cervical length measures 33.2 mm with no evidence of funneling or other dynamic changes. - Not all structural malformations can be detected by ultrasound examination. Recommendations Additional follow-up as clinically indicated. Maternal Assessment Height 165 cm Height (ft) 5 ft Height (in) 5 in Physical Exam Initial weight (lb) 170 lb Initial BMI 28.29 kg/m Maternal assessment other: 4 Para 3 REMOTE READ Method Transabdominal ultrasound examination. View: Suboptimal view: limited by position Barnett . Number of fetuses: 1 Dating LMP on: 09/24/2024 GA by LMP 19 w + 0 d KOREY by LMP: 07/01/2025 GA by prior assessment 19 w + 0 d KOREY by prior assessment: 07/01/2025 Ultrasound examination on: 02/04/2025 GA by U/S based upon: AC, BPD, Femur, HC GA by U/S 19 w + 4 d KOREY by U/S: 06/27/2025 Assigned: based on stated KOREY, selected on 02/04/2025 Assigned GA 19 w + 0 d Assigned KOREY: 07/01/2025 General Evaluation Cardiac activity present. FHR 147 bpm. movements: present. Presentation: transverse head right Placenta: Placental site: anterior, fundal Umbilical cord: Cord vessels: 3 vessel cord Amniotic fluid: Amount of AF: normal amount. MVP 4.7 cm Growth Overview Exam date GA BPD (mm) HC (mm) AC (mm) FL (mm) HL (mm) EFW (g) 02/04/2025 19w 0d 41 26% 161 45% 165.7 98% 29.5 69% 28 50% 339 97% Biometry Standard BPD 41.0 mm 18w 3d 26% Hadlock OFD 58.9 mm 19w 2d 83% Nicolaides HC 161.0 mm 18w 6d 45% Camacho Cerebellum tr 18.4 mm 18w 1d 5% Hill Nuchal fold 3.6 mm AC 165.7 mm 21w 4d 98% Hadlock Femur 29.5 mm 19w 2d 69% Camacho Humerus 28.0 mm 19w 0d 50% Camacho EFW 339 g 20w 1d 97% Hadlock EFW (lb) 0 lb EFW (oz) 12 oz EFW by: Hadlock (HC-AC-FL) Extended Vegetable Washer 6.8 mm CM 3.5 mm 13% Nicolaides Extremities / Bony Struc FL / HC 0.18 48% Hadlock Other Structures FHR 147 bpm Anatomy Cranium: normal Lateral ventricles: normal Choroid plexus: normal Midline falx: normal Cavum septi pellucidi: normal Cerebellum: normal Cisterna magna: normal Head / Neck Vermis: Normal but not required for a standard anatomy exam Neck: Normal but not required for a standard anatomy exam Nuchal fold: Normal but not required for a standard anatomy exam Lips: normal Profile: Normal but not required for a standard anatomy exam Nose: Normal but not required for a standard anatomy exam Face Maxilla: Normal but not required for a standard anatomy exam Mandible: Normal but not required for a standard anatomy exam Orbits: Normal but not required for a standard anatomy exam Lens: Normal but not required for a standard anatomy exam 4-chamber view: normal RVOT view: normal LVOT view: normal 3-vessel view: normal 8-fkidfj-zkzsrhl view: normal Heart / Thorax Situs: situs solitus (normal) Aortic arch view: Normal but not required for a standard anatomy exam SVC: Normal but not required for a standard anatomy exam IVC: Normal but not required for a standard anatomy exam Cardiac axis: normal Rt lung: Normal but not required for a standard anatomy exam Lt lung: Normal but not required for a standard anatomy exam Diaphragm: normal Cord insertion: normal Stomach: normal Kidneys: normal Bladder: normal Genitals: normal Abdomen Abdom. wall: normal Cervical spine: normal Thoracic spine: normal Lumbar spine: normal Sacral spine: normal Arms: normal Legs: normal Rt upper arm: normal Rt forearm: normal Rt hand: normal Rt fingers: normal Lt upper arm: normal Lt forearm: normal Lt hand: normal Lt fingers: normal Rt upper leg: normal Rt lower leg: normal Rt foot: normal Lt upper leg: normal Lt lower leg: normal Lt foot: normal sex: female Wants to know sex: yes Maternal Structures Uterus / Cervix Uterus: Visualized Cervix: Visualized Approach: Transabdominal Cervical length 33.2 mm Other: Patient declined transvaginal ultrasound for cervical length. Ovaries / Tubes / Adnexa Rt ovary: Visualized Lt ovary: Visualized Performed By: Kavitha Barclay, JOSLYN, RVT Read By: Carmen Livingston M.D. MATERNAL MEDICINE [facility] Radiology Study observation (narrative) [facility] [id number] PLUSon 12-22-2024 Cell-free DNA./Cell-free DNA.total Dosage of chromosome-specific cfDNA (cfDNA) [Molar fraction] 22% Normal [facility] Comment on above: Order Comment: Speci men Type: FLUID SPECIMEN Ordering Facility: [facility] Address: [address] [place] [address] Performed By: #### L [id number] #### [facility] CLIA [id number] [address] [place] [address] [place] Chr 13+18+21+X+Y aneuploidy Dosage of chromosome-specific cfDNA Ql (cfDNA) Negative Normal [facility] Comment on above: Order Comment: Speci men Type: FLUID SPECIMEN Ordering Facility: [facility] Address: [address] [place] [address] Performed By: #### L [id number] #### [facility] CLIA [id number] [address] [place] [address] [place] Chr 21 trisomy Dosage of chromosome-specific cfDNA Ql (cfDNA) Negative Normal [facility] Comment on above: Order Comment: Speci men Type: FLUID SPECIMEN Ordering Facility: [facility] Address: [address] [place] [address] Performed By: #### L [id number] #### [facility] CLIA [id number] [address] [place] [address] [place] Chr X and Y aneuploidy risk Sequencing Ql (cfDNA) [Interp] Not detected Normal [facility] Comment on above: Order Comment: Speci men Type: FLUID SPECIMEN Ordering Facility: [facility] Address: [address] [place] [address] Result Comment: Not Detected Not Detected Performed By: #### L [id number] #### [facility] CLIA [id number] [address] [place] [address] [place] Citation Pieter (Reference lab test) Comment Normal [facility] Comment on above: Order Comment: Speci men Type: FLUID SPECIMEN Ordering Facility: [facility] Address: [address] [place] [address] Result Comment: 1. P cherise VALENZUELA, et al. Fernanda Med. 2012;14(3):296-305. 2. Dee CASSIDY et al. Prenat Diag. 2013;33(6):591-597. 3. Nguyễn C, et al. Clin Chem. 2015 Apr;61(4):608-616. 4. Solange VALENZUELA, et al. Fernanda Med. 2011;13(11):913-920. 5. ACOG/SMFM Practice Bulletin No. 226, Jun 2020. Performed By: #### L [id number] #### [facility] CLIA [id number] [address] [place] [address] [place] Gestational age Estimated from conception date Barnett Normal [facility] Comment on above: Order Comment: Speci men Type: FLUID SPECIMEN Ordering Facility: [facility] Address: [address] [place] [address] Performed By: #### L [id number] #### [facility] CLIA [id number] [address] [place] [address] [place] GESTATIONALAGE AGE > OR = 9W Yes Normal [facility] Comment on above: Order Comment: Speci men Type: FLUID SPECIMEN Ordering Facility: [facility] Address: [address] [place] [address] Performed By: #### L [id number] #### [facility] CLIA [id number] [address] Laboratory comment Pieter (Report) Comment Normal [facility] Comment on above: Order Comment: Jayda lacey Type: FLUID SPECIMEN Ordering Facility: [facility] Address: [address] [place] [address] Result Comment: The MaterniT(R) 21 PLUS laboratory-developed test (LDT) analyzes circulating cell-free DNA from a maternal blood sample. This test is used for screening purposes and not diagnostic. Clinical correlation is recommended. Validation data on twin pregnancies is limited and the ability of this test to detect aneuploidy in higher multiple gestations has not yet been validated. Performed By: #### L [id number] #### [facility] CLIA [id number] [address] [place] [address] grants director name Nom (Provider) Comment Normal [facility] Comment on above: Order Comment: Jayda lacey Type: FLUID SPECIMEN Ordering Facility: [facility] Address: [address] [place] [address] Result Comment: This specimen showed an expected representation of chromosome 21, 18 and 13 material. Clinical correlation is suggested. Comment Yandel Lopez MD, PhD, Director, [place] ([employer]) Performed By: #### L [id number] #### [facility] CLIA [id number] [address] [place] [address] LIMITATIONS OF THE TEST Comment Normal [facility] Comment on above: Order Comment: Jayda lacey Type: FLUID SPECIMEN Ordering Facility: [facility] Address: [address] [place] [address] Result Comment: Whil e the results of these tests are highly reliable, discordant results, including inaccurate sex prediction, may occur due to placental, maternal, or mosaicism or neoplasm; vanishing twin; prior maternal organ transplant; or other causes. These tests are screening tests and not diagnostic; they do not replace the accuracy and precision of diagnosis with CVS or amniocentesis. A patient with a positive test result should be referred for genetic counseling and offered invasive diagnosis for confirmation of test results.[5] The results of this testing, including the benefits and limitations, should be discussed with a qualified healthcare provider. management decisions, including termination of the , should not be based on the results of these tests alone. The healthcare provider is responsible for the use of this information in the management of their patient. Sex chromosomal aneuploidies are not reportable for known multiple gestations. A negative result does not ensure an unaffected nor does it exclude the possibility of other chromosomal abnormalities or defects which are not a part of these tests. An uninformative result may be reported, the causes of which may include, but are not limited to, insufficient sequencing coverage, noise or artifacts in the region, amplification or sequencing bias, or insufficient fraction. These tests are not intended to identify pregnancies at risk for neural tube defects or ventral wall defects. Testing for whole chromosome abnormalities (including sex chromosomes) and for subchromosomal abnormalities could lead to the potential discovery of both and maternal genomic abnormalities that could have major, minor, or no, clinical significance. Evaluating the significance of a positive or a non-reportable result may involve both invasive testing and additional studies on the mother. Such investigations may lead to a diagnosis of maternal chromosomal or subchromosomal abnormalities, which on occasion may be associated with benign or malignant maternal neoplasms. These tests may not accurately identify triploidy, balanced rearrangements, or the precise location of subchromosomal duplications or deletions; these may be detected by diagnosis with CVS or amniocentesis. The ability to report results may be impacted by maternal BMI, maternal weight, maternal systemic lupus erythematosus (SLE) and/or by certain pharmaceutical agents such as low molecular weight heparin (for example: Lovenox(R), Xaparin(R), Clexane(R) and Fragmin(R)). Performed By: #### L [id number] #### [facility] CLIA [id number] [address] [place] [address] [place] Monosomy X risk Dosage of chromosome-specific cfDNA Ql (Plasma cell-free+WBC DNA) [Interp] Not detected Normal [facility] Comment on above: Order Comment: Speci men Type: FLUID SPECIMEN Ordering Facility: [facility] Address: [address] [place] [address] Performed By: #### L [id number] #### [facility] CLIA [id number] [address] [place] [address] NEGATIVE PREDICTIVE VALUE Note Normal [facility] Comment on above: Order Comment: Jayda lacey Type: FLUID SPECIMEN Ordering Facility: [facility] Address: [address] [place] [address] Result Comment: The Negative Predictive Value (NPV) for trisomy 21, 18, and 13 is greater than 99%. The NPV for SCA and ESS cannot be calculated as SCA and ESS are only reported when an abnormality is detected. Performed By: #### L [id number] #### [facility] CLIA [id number] [address] [place] [address] PERFORMANCE CHARACTERISTICS Note Normal [facility] Comment on above: Order Comment: Jayda lacey Type: FLUID SPECIMEN Ordering Facility: [facility] Address: [address] [place] [address] Result Comment: ! Sex ! Accuracy: 99.4% ! ! ! ! Region (associated syndrome) ! Est. Sens# ! Est. Spec ! ! ! ! Trisomy 21 (Down Syndrome) ! 99.1% ! 99.9% ! ! ! ! Trisomy 18 (Cortes Syndrome) ! >99.9% ! 99.6% ! ! ! ! Trisomy 13 (Patau Syndrome) ! 91.7% ! 99.7% ! ! ! ! Sex Chromosome Aneuploidies## ! 96.2% ! 99.7% ! ! ! * As reported in [employer] database nstd37 [https://www.ncbi.nlm.nih.gov/dbvar/studies/nstd37/ ] # Estimated Sensitivity. Sensitivity estimated across the observed size distribution of each syndrome [per [facility] database nstd37] and across the range of fractions observed in routine clinical NIPT. Actual sensitivity can also be influenced by other factors such as the size of the event, total sequence counts, amplification bias, or sequence bias. ## Barnett gestation only. Performed By: #### L [id number] #### [facility] CLIA [id number] [address] [place] [address] POSITIVE PREDICTIVE VALUE N/A Normal [facility] Comment on above: Order Comment: Speci men Type: FLUID SPECIMEN Ordering Facility: [facility] Address: [address] [place] [address] Performed By: #### L [id number] #### [facility] CLIA [id number] [address] [place] [address] [place] Reference Lab Test Method Comment Normal [facility] Comment on above: Order Comment: Speci men Type: FLUID SPECIMEN Ordering Facility: [facility] Address: [address] [place] [address] Result Comment: See Notes Circulating cell-free DNA was purified from the plasma component of maternal blood. The extracted DNA was then converted into a genomic DNA library for aneuploidy analysis of chromosomes 21, 18, and 13 via next generation sequencing.[1] Optional findings based on the test order include sex chromosome aneuploidy (SCA)[2], and enhanced sequencing series (ESS)[3], which will only be reported on as an additional finding when an abnormality is detected. SCA testing includes information on X and Y representation, while ESS testing includes deletions in selected regions (22q, 15q, 11q, 8q, 5p, 4p, 1p) and trisomy of chromosomes 16 and 22. Performed By: #### L [id number] #### [facility] CLIA [id number] [address] [place] [address] [place] Service comment (Unsp spec) [Interp] Comment Normal [facility] Comment on above: Order Comment: Speci men Type: FLUID SPECIMEN Ordering Facility: [facility] Address: [address] [place] [address] Result Comment: See Notes [employer] is a subsidiary of [employer], using the brand [facility]. This test was developed and its performance characteristics determined by [employer]. It has not been cleared or approved by the Food and Drug Administration. This laboratory is certified under the Clinical Laboratory Improvement Amendments (CLIA) as qualified to perform high complexity clinical laboratory testing and accredited by the [employer] (CAP). If there is future clinical need for adding MaterniT GENOME testing, this specimen will be available until term. [facility] samples will not be retained beyond [address] [facility] patients will have to send a new sample for re-sequencing ([facility] Test Code: [id number]). Performed By: #### L [id number] #### [facility] CLIA [id number] [address] [place] [address] [place] Sex Dosage of chromosome-specific cfDNA Nom (cfDNA) Comment Normal [facility] Comment on above: Order Comment: Speci men Type: FLUID SPECIMEN Ordering Facility: [facility] Address: [address] [place] [address] Result Comment: Cons istent with Female Performed By: #### L [id number] #### [facility] CLIA [id number] [address] [place] [address] OF [place] Test performance information Pieter (Unsp spec) Comment Normal [facility] Comment on above: Order Comment: Speci men Type: FLUID SPECIMEN Ordering Facility: [facility] Address: [address] [place] [address] Result Comment: The performance characteristics of the MaterniT(R) 21 PLUS laboratory-developed test (LDT) have been determined in a clinical validation study with women at increased risk for chromosomal aneuploidy.[1-4] Performed By: #### L [id number] #### [facility] CLIA [id number] [address] [place] [address] [place] Trisomy 13 risk Dosage of chromosome-specific cfDNA Ql (cfDNA) [Interp] Negative Normal [facility] Comment on above: Order Comment: Speci men Type: FLUID SPECIMEN Ordering Facility: [facility] Address: [address] [place] [address] Performed By: #### L [id number] #### [facility] CLIA [id number] [address] [place] [address] OF [place] Trisomy 18 risk Dosage of chromosome-specific cfDNA Ql (Plasma cell-free+WBC DNA) [Interp] Negative Normal [facility] Comment on above: Order Comment: Speci men Type: FLUID SPECIMEN Ordering Facility: [facility] Address: [address] [place] [address] Performed By: #### L [id number] #### [facility] CLIA [id number] [address] [place] [address] [place] Kaden 12-15-2024 TANESHA Telephone (OBGYWM) NELDA BIGGS ([id number]) 1995 F Date Time Provider Department 12/15/24 BAUTISTA LAY During your visit today, we recorded the following information about you: ShirleneHeatherBryanami Davis 12/15/2024 3:12 PM Signed Patient calling in asking if her anatomy scan appointment on 01/25 is scheduled for an an appropriate time since she will be a two days shy of 18 weeks. Please review and advise if this needs adjusted or not. Bryan Garber December 15, 2024 3:12 PM Sonya Mireles, RAZIA 12/15/2024 4:39 PM Signed Spoke with [employer]. Patient needs rescheduled. She will be too soon for her anatomy. Please call patient and schedule her anatomy and OB visit approximately 4 weeks after her 01/07 ob visit. Thank you. Sonya Mirelse, RAZIA Allergies As of Date: 12/15/2024 (No Known Allergies) Date Reviewed: 12/14/2024 Reviewed by: Sonya Garcia MD - Fully Assessed Reason for Visit: Patient Question [9777] Prescriptions as of 12/16/2024 - aspirin, enteric coated (ECOTRIN LOW STRENGTH) 81 mg EC tablet Take 1 tablet by mouth once daily. - PNV no.95/ferrous fum/folic ac ( ORAL) Take by mouth. 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] 06/23/2012 Supervision of with history of infert*04/28/2017 02/02/2018 with uncertain dates, antepartum, uns*04/28/2017 02/02/2018 Encounter for supervision of normal i*03/12/2019 05/23/2022 Patient request for diagnostic testing [Z01.89] 08/30/2021 05/23/2022 Low-lying placenta [O44.40] 11/30/2021 05/23/2022 Supervision of normal [Z34.90] 11/17/2024 Encounter Status:Closed by BRYAN GARBER on 12/16/24 Normal [facility] Examination level ultrasound on 12-15-2024 Indication First trimester anatomic survey Impression REMOTE READ The patient is referred for a first trimester anatomy scan including nuchal translucency measurement as clinically indicated. - Single, live, intrauterine . - [place] rump length measurement is consistent with the established gestational age. - A qualitative screen of the nuchal translucency and other anatomic structures was unremarkable on an incomplete first trimester anatomic assessment. - Not all structural malformations can be detected by ultrasound examination. Recommendations - An anatomic survey at 18-20 weeks is recommended given no identified risk factors. Maternal Assessment Height 165 cm Height (ft) 5 ft Height (in) 5 in Physical Exam Initial weight (lb) 170 lb Initial BMI 28.29 kg/m Maternal assessment other: 4 Para 3 Method Transabdominal ultrasound examination Barnett . Number of fetuses: 1 Dating LMP on: 09/24/2024 GA by LMP 11 w + 4 d KOREY by LMP: 07/01/2025 GA by prior assessment 11 w + 4 d KOREY by prior assessment: 07/01/2025 Ultrasound examination on: 12/14/2024 GA by U/S based upon: CRL GA by U/S 11 w + 5 d KOREY by U/S: 06/30/2025 Assigned: based on stated KOREY, selected on 12/14/2024 Assigned GA 11 w + 4 d Assigned KOREY: 07/01/2025 General Evaluation Cardiac activity present Placenta: anterior Cord vessels: 3 vessel cord Amniotic fluid: normal amount Biometry Standard FHR 165 bpm CRL 50.3 mm 11w 5d 45% Hadlock NT 1.40 mm First Trimester Anatomy Calvarium: normal Falx cerebri: normal Choroid plexus: normal Profile: normal Nasal bone: normal Retronasal triangle: normal Maxilla: normal Mandible: normal Nuchal translucency: Unremarkable Situs: normal Cardiac position: normal Cardiac axis: normal 4-chamber view: suboptimal 4-chamber view with color: suboptimal [id number] view: suboptimal Abdominal cord insertion: normal Stomach: normal Kidneys: suboptimal Color doppler of renal vessels: normal Bladder: normal Color doppler of perivesical umbilical arteries: normal Vertebral alignment: normal Arms: normal Hands: normal Legs: normal Feet: normal Maternal Structures Uterus / Cervix Uterus: Visualized Uterus length 141 mm Uterus width 85 mm Uterus height 72 mm Uterus Vol 448.8 cm Ovaries / Tubes / Adnexa Rt ovary: Visualized Rt ovary D1 52 mm Rt ovary D2 26 mm Rt ovary D3 21 mm Rt ovary Vol 14.9 cm Lt ovary: Visualized Lt ovary D1 35 mm Lt ovary D2 34 mm Lt ovary D3 14 mm Lt ovary Vol 8.8 cm Performed By: Kavitha Barclay RDMS, RVT Read By: Medina Rodriguez MD MATERNAL MEDICINE [facility] CBC W Auto Diff Bldon 2024 Erythrocyte distribution width (RBC) [Ratio] 12.6 % Normal 11.5-15.0 [facility] Comment on above: Order Comment: Speci men Type: BLOOD SPECIMEN Ordering Facility: [facility] Address: [address] [place] [address] Performed By: #### 5 7021-8 #### [facility] CLIA [id number] [address] [place] [address] OF [facility] Performed By: #### G TGSTF #### [facility] CLIA [id number] [address] [place] [address] [place] CBC W Auto Differential pane l (Bld)on 12-14-2024 Basophils (Bld) [#/Vol] 10*3/uL Normal <0.11 [facility] Comment on above: Order Comment: Speci men Type: BLOOD SPECIMEN Ordering Facility: [facility] Address: [address] [place] [address] Performed By: #### 5 7021-8 #### [facility] CLIA [id number] [address] [place] [address] Basophils/100 WBC (Bld) 0.1 % Normal [facility] Comment on above: Order Comment: Speci men Type: BLOOD SPECIMEN Ordering Facility: [facility] Address: [address] [place] [id number] Performed By: #### 5 7021-8 #### [facility] CLIA [id number] [address] [place] [address] [place] Differential cell count method Nom (Bld) Auto Normal [facility] Comment on above: Order Comment: Speci men Type: BLOOD SPECIMEN Ordering Facility: [facility] Address: [address] [place] [address] Performed By: #### 5 7021-8 #### [facility] CLIA [id number] [address] [place] [address] [place] Eosinophils (Bld) [#/Vol] 0.03 10*3/uL Normal <0.46 [facility] Comment on above: Order Comment: Speci men Type: BLOOD SPECIMEN Ordering Facility: [facility] Address: [address] [place] [address] Performed By: #### 5 7021-8 #### [facility] CLIA [id number] [address] [place] [address] [place] Eosinophils/100 WBC (Bld) 0.4 % Normal [facility] Comment on above: Order Comment: Speci men Type: BLOOD SPECIMEN Ordering Facility: [facility] Address: [address] [place] [address] Performed By: #### 5 7021-8 #### [facility] CLIA [id number] [address] [place] [address] [place] Hematocrit (Bld) [Volume fraction] 40.4 % Normal 36.0-46.0 [facility] Comment on above: Order Comment: Speci men Type: BLOOD SPECIMEN Ordering Facility: [facility] Address: [address] [place], [place] [id number] Performed By: #### 5 7021-8 #### [facility] CLIA [id number] [address] [place] [address] [place] Hemoglobin (Bld) [Mass/Vol] 14.0 g/dL Normal 11.5-15.5 [facility] Comment on above: Order Comment: Speci men Type: BLOOD SPECIMEN Ordering Facility: [facility] Address: [address] [place] [address] Performed By: #### 5 7021-8 #### [facility] CLIA [id number] [address] [place] [address] [place] Immature granulocytes (Bld) [#/Vol] 10*3/uL Normal <0.10 [facility] Comment on above: Order Comment: Speci men Type: BLOOD SPECIMEN Ordering Facility: [facility] Address: [address] [place] [address] Performed By: #### 5 7021-8 #### [facility] CLIA [id number] [address] [place] [address] [place] Immature granulocytes/100 WBC (Bld) 0.3 % Normal [facility] Comment on above: Order Comment: Speci men Type: BLOOD SPECIMEN Ordering Facility: [facility] Address: [address] [place] [address] Performed By: #### 5 7021-8 #### [facility] CLIA [id number] [address] [place] [address] [place] Lymphocytes (Bld) [#/Vol] 1.53 10*3/uL Normal 1.00-4.00 [facility] Comment on above: Order Comment: Speci men Type: BLOOD SPECIMEN Ordering Facility: [facility] Address: [address] [place] [address] Performed By: #### 5 7021-8 #### [facility] CLIA [id number] [address] [place] [address] [place] Lymphocytes/100 WBC (Bld) 19.6 % Normal [facility] Comment on above: Order Comment: Speci men Type: BLOOD SPECIMEN Ordering Facility: [facility] Address: [address] [place] [address] Performed By: #### 5 7021-8 #### [facility] CLIA [id number] [address] [place] [address] MCH (RBC) [Entitic mass] 29.7 pg Normal 26.0-34.0 [facility] Comment on above: Order Comment: Speci men Type: BLOOD SPECIMEN Ordering Facility: [facility] Address: [address] [place] [address] Performed By: #### 5 7021-8 #### [facility] CLIA [id number] [address] [place] [address] [place] MCHC (RBC) [Mass/Vol] 34.7 g/dL Normal 30.5-36.0 [facility] Comment on above: Order Comment: Speci men Type: BLOOD SPECIMEN Ordering Facility: [facility] Address: [address] [place] [address] Performed By: #### 5 7021-8 #### [id number] [address] [place] [address] [place] MCV (RBC) [Entitic vol] 85.8 fL Normal 80.0-100.0 [facility] Comment on above: Order Comment: Speci men Type: BLOOD SPECIMEN Ordering Facility: [facility] Address: [address] [place] [address] Performed By: #### 5 7021-8 #### [facility] CLIA [id number] [address] [place] [address] [place] Monocytes (Bld) [#/Vol] 0.65 10*3/uL Normal <0.87 [facility] Comment on above: Order Comment: Speci men Type: BLOOD SPECIMEN Ordering Facility: [facility] Address: [address] [place] [address] Performed By: #### 5 7021-8 #### [facility] CL[facility] [id number] [address] [place] [address] [place] Monocytes/100 WBC (Bld) 8.3 % Normal [facility] Comment on above: Order Comment: Speci men Type: BLOOD SPECIMEN Ordering Facility: [facility] Address: [address] [place] [address] Performed By: #### 5 7021-8 #### [facility] CLIA [id number] [address] [place] [address] [place] Neutrophils (Bld) [#/Vol] 5.58 10*3/uL Normal 1.45-7.50 [facility] Comment on above: Order Comment: Speci men Type: BLOOD SPECIMEN Ordering Facility: [facility] Address: [address] [place] [address] Performed By: #### 5 7021-8 #### [facility] CLIA [id number] [address] [place] [address] [place] Neutrophils/100 WBC (Bld) 71.3 % Normal [facility] Comment on above: Order Comment: Speci men Type: BLOOD SPECIMEN Ordering Facility: [facility] Address: [address] [place] [address] Performed By: #### 5 7021-8 #### [facility] CLIA [id number] [address] [place] [address] [place] Nucleated RBC (Bld) [#/Vol] 10*3/uL Normal <0.01 [facility] Comment on above: Order Comment: Speci men Type: BLOOD SPECIMEN Ordering Facility: [facility] Address: [address] [place] [address] Performed By: #### 5 7021-8 #### [facility] CLIA [id number] [address] [place] [address] [place] Nucleated RBC/100 WBC (Bld) [Ratio] 0.0 /100 WBC Normal [facility] Comment on above: Order Comment: Speci men Type: BLOOD SPECIMEN Ordering Facility: [facility] Address: [address] [place] [address] Performed By: #### 5 7021-8 #### [facility] CLIA [id number] [address] [place] [address] [place] Platelet mean volume (Bld) [Entitic vol] 11.4 fL Normal 9.0-12.7 [facility] Comment on above: Order Comment: Speci men Type: BLOOD SPECIMEN Ordering Facility: [facility] Address: [address] [place] [address] Performed By: #### 5 7021-8 #### [facility] CLIA [id number] [address] [place] [address] [place] Platelets (Bld) [#/Vol] 215 10*3/uL Normal 150-400 [facility] Comment on above: Order Comment: Speci men Type: BLOOD SPECIMEN Ordering Facility: [facility] Address: [address] [place] [address] Performed By: #### 5 7021-8 #### [facility] CLIA [id number] [address] [place] [address] [place] RBC (Bld) [#/Vol] 4.71 10*6/uL Normal 3.90-5.20 [facility] Comment on above: Order Comment: Speci men Type: BLOOD SPECIMEN Ordering Facility: [facility] Address: [address] [place] [address] Performed By: #### 5 7021-8 #### [facility] CLIA [id number] [address] [place] [address] [place] WBC (Bld) [#/Vol] 7.82 10*3/uL Normal 3.70-11.00 [facility] Comment on above: Order Comment: Speci men Type: BLOOD SPECIMEN Ordering Facility: [facility] Address: [address] [place] [address] Performed By: #### 5 7021-8 #### [facility] CLIA [id number] [address] [place] [address] [place] Examination level ultrasound on 12-14-2024 Radiology Study observation (narrative) [facility] HBV surface Ag Ser Qlon 11-21 HBV surface Ag Ql (S) Negative Normal Negative [facility] Comment on above: Order Comment: Speci men Type: FLUID SPECIMEN Ordering Facility: [facility] Address: [address] [place] [address] Performed By: #### L [id number] #### [facility] CLIA [id number] [address] [place] [address] [place] HCV Ab Ser Qlon 12-14-2024 HCV Ab Ql (S) Negative Normal Negative [facility] Comment on above: Order Comment: Speci men Type: FLUID SPECIMEN Ordering Facility: [facility] Address: [address] [place] [address] Result Comment: The result suggests no evidence of infection with Hepatitis C virus. Should recent infection be suspected, repeat testing may be considered 4-6 weeks after this draw. Performed By: #### L [id number] #### [facility] CLIA [id number] [address] [place] [address] [place] HGB ELECTROPHORESIS FOR EVAL (LAB ORDER)on 12-14-2024 Hemoglobin A (Bld) [Mass fraction] 97.4 % Normal 96.2-98.0 [facility] Comment on above: Order Comment: Speci men Type: BLOOD SPECIMEN Ordering Facility: [facility] Address: [address] [place] [address] Performed By: #### G TGSTF #### [facility] CLIA [id number] [address] [place] [address] [place] Hemoglobin A2 (Bld) [Mass fraction] 2.6 % Normal 2.0-3.1 [facility] Comment on above: Order Comment: Speci men Type: BLOOD SPECIMEN Ordering Facility: [facility] Address: [address] [place] [address] Performed By: #### G TGSTF #### [facility] CLIA [id number] [address] [place] [address] [place] Hemoglobin Unsp Elph (Bld) [Mass fraction] No abnormal hemoglobin identified. Normal No abnormal hemoglobin identified. [facility] Comment on above: Order Comment: Speci men Type: BLOOD SPECIMEN Ordering Facility: [facility] Address: [address] [place] [address] Performed By: #### G TGSTF #### [id number] [address] [place] [address] [place] HGB EVALUATION CASCADE INTER Jacob 12-14-2024 Hemoglobin pattern (Bld) [Interp] Reviewed by Nicole Shelton DO, MPH Normal [facility] Comment on above: Order Comment: Speci men Type: BLOOD SPECIMEN Ordering Facility: [facility] Address: [address] [place] [address] Performed By: #### G TGSTF #### [facility] [id number] [address] [place] [address] [place] INTERPRETATION (HGB EVAL) Normal [facility] Comment on above: Order Comment: Speci men Type: BLOOD SPECIMEN Ordering Facility: [facility] Address: [address] [place] [address] Result Comment: Hemo globins were analyzed by capillary electrophoresis and CBC red cell parameters were reviewed. No abnormal hemoglobin is identified. There is a normal hemoglobin capillary electrophoresis pattern. Performed By: #### G TGSTF #### [facility] CLIA [id number] [address] [place] [address] [place] HIV 1+2 Ab IA Qlon 5 HIV 1 and 2 Ab IA.rapid Nom (S/P/Bld) Normal [facility] Comment on above: Order Comment: Speci men Type: FLUID SPECIMEN Ordering Facility: [facility] Address: [address] [place] [address] Result Comment: Test not indicated. Performed By: #### L [id number] #### [facility] CLIA [id number] [address] [place] [address] [place] HIV 1+2 Ab+HIV1 p24 Ag IA Ql Non-Reactive Normal Nonreactive [facility] Comment on above: Order Comment: Speci men Type: FLUID SPECIMEN Ordering Facility: [facility] Address: [address] [place] [address] Performed By: #### L [id number] #### [facility] CLIA [id number] [address] [place] [address] [place] HIV immunoassay testing algorithm interpretation (S/P/Bld) [Interp] Normal [facility] Comment on above: Order Comment: Speci men Type: FLUID SPECIMEN Ordering Facility: [facility] Address: [address] [place] [address] Result Comment: No e vidence of HIV-1 or HIV-2 infection. Should recent infection be suspected, repeat testing may be considered 2-3 weeks after this draw. [place] Rev. Code 3701.243(E): This information has been disclosed to you from confidential records protected from disclosure by state law. ???You shall make no further disclosure of this information without the specific, written, and informed release of the individual to whom it pertains or as otherwise permitted by state law. A general authorization for the release of medical or other information is not sufficient for the purpose of the release of HIV test results or diagnoses. Performed By: #### L [id number] #### [facility] CLIA [id number] [address] [place] [address] [place] HbA1c (Bld)on 12-14-2024 Average glucose Estimated from glycated hemoglobin (Bld) [Mass/Vol] 85 mg/dL Normal [facility] Comment on above: Order Comment: Speci men Type: BLOOD SPECIMEN Ordering Facility: [facility] Address: [address] [place] [address] Result Comment: eAG: (Estimated average glucose) is a calculated value from HgbA1c and is group sales representative of the average blood glucose level in the last 2-3 month period. Performed By: #### G TGSTF #### [facility] CLIA [id number] [address] [place] [address] [place] HbA1c (Bld) [Mass fraction] 4.6 % Normal 4.3-5.6 [facility] Comment on above: Order Comment: Speci men Type: BLOOD SPECIMEN Ordering Facility: [facility] Address: [address] [place] [address] Result Comment: [place] Diabetes Association guidelines indicate that patients with HgbA1c in the range 5.7-6.4% are at increased risk for development of diabetes, and intervention by lifestyle modification may be beneficial. HgbA1c greater or equal to 6.5% is considered diagnostic of diabetes. Performed By: #### G TGSTF #### [id number] [address] [place] [address] [place] RBC PARAMETERS FOR HB IDon 0 - Hematocrit (Bld) [Volume fraction] 41.7 % Normal 36.0-46.0 [facility] Comment on above: Order Comment: Jayda lacey Type: BLOOD SPECIMEN Ordering Facility: [facility] Address: [address] [place] [address] Performed By: #### G TGSTF #### [facility] [id number] [address] [place] [address] [place] Hemoglobin (Bld) [Mass/Vol] 14.1 g/dL Normal 11.5-15.5 [facility] Comment on above: Order Comment: Jayda lacey Type: BLOOD SPECIMEN Ordering Facility: [facility] Address: [address] [place] [address] Performed By: #### G TGSTF #### [facility] [id number] [address] [place] [address] [place] MCH (RBC) [Entitic mass] 29.6 pg Normal 26.0-34.0 [facility] Comment on above: Order Comment: Speci men Type: BLOOD SPECIMEN Ordering Facility: [facility] Address: [address] [place] [address] Performed By: #### G TGSTF #### [facility] CLIA [id number] [address] [place] [address] [place] MCHC (RBC) [Mass/Vol] 33.8 g/dL Normal 30.5-36.0 [facility] Comment on above: Order Comment: Speci men Type: BLOOD SPECIMEN Ordering Facility: [facility] Address: [address] [place] [address] Performed By: #### G TGSTF #### [facility] CLIA [id number] [address] [place] [address] [place] MCV (RBC) [Entitic vol] 87.6 fL Normal 80.0-100.0 [facility] Comment on above: Order Comment: Speci men Type: BLOOD SPECIMEN Ordering Facility: [facility] Address: [address] [place] [address] Performed By: #### G TGSTF #### [facility] CLIA [id number] [address] [place] [address] [place] RBC (Bld) [#/Vol] 4.76 10*6/uL Normal 3.90-5.20 [facility] Comment on above: Order Comment: Speci men Type: BLOOD SPECIMEN Ordering Facility: [facility] Address: [address] [place] [address] Performed By: #### G TGSTF #### [facility] CLIA [id number] [address] [place] [address] [place] RUBELLA IGG ANTIBODYon 12-14 RUBELLA IGG AB, QUAL Positive Normal Positive [facility] Comment on above: Order Comment: Speci men Type: BLOOD SPECIMEN Ordering Facility: [facility] Address: [address] [place] [address] Result Comment: The result suggests recent or past exposure to Rubella virus or history of Rubella vaccination. Positive result may also be seen due to presence of passively-transferred antibodies. Please correlate with patient's history. Performed By: #### T SPN #### [facility] CLIA [id number] [address] [place] [address] [place] Reagin and Treponema pallidu m IgG and IgM [Interp]on 12-14-2024 T. pallidum IgG+IgM IA Ql (S) Non-Reactive Normal Nonreactive [facility] Comment on above: Order Comment: Speci men Type: FLUID SPECIMEN Ordering Facility: [facility] Address: [address] [place] [address] Performed By: #### L [id number] #### [facility] CLIA [id number] [address] [place] [address] [place] Reagin+T pallidum IgG+IgM Se rPl-Impon 12-14-2024 Reagin and Treponema pallidum IgG and IgM [Interp] Cannot exclude recent Treponemal infection if specimen collected within 7-10 days after appearance of suspect lesions or 2-3 weeks after an exposure. Clinical correlation is required. Normal [facility] Comment on above: Order Comment: Speci men Type: FLUID SPECIMEN Ordering Facility: [facility] Address: [address] [place] [address] Performed By: #### L [id number] #### [facility] CLIA [id number] [address] [place] [address] [place] TYPE + SCREEN PRENATALon ABO O Normal [facility] Comment on above: Order Comment: Speci men Type: BLOOD SPECIMEN Ordering Facility: [facility] Address: [address] [place] [address] Performed By: #### T SPN #### [facility] CLIA [id number] [address] [place] [address] Rh Nom (Bld) Positive Normal [facility] Comment on above: Order Comment: Speci men Type: BLOOD SPECIMEN Ordering Facility: [facility] Address: [address] [place] [address] Performed By: #### T SPN #### [facility] CLIA [id number] [address] [place] [address] TYPE AND SCREEN EXPIRATION 12/17/2024 23:59 Normal [facility] Comment on above: Order Comment: Speci men Type: BLOOD SPECIMEN Ordering Facility: [facility] Address: [address] [place] [address] Performed By: #### T SPN #### [facility] CLIA [id number] [address] [place] [address] Kaden 11-18-2024 [facility] Telephone ([id number]) NELDA BIGGS ([id number]) 1995 F Date Time Provider Department 11/18/24 SONYA ALBARADO [id number] During your visit today, we recorded the following information about you: Sonya Albarado RN 11/18/2024 11:30 AM Signed 1st risk assessment form submitted 11/18/2024. 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 - PNV no.95/ferrous fum/folic ac ( ORAL) Take by mouth. 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] 06/23/2012 Supervision of with history of infert*04/28/2017 02/02/2018 with uncertain dates, antepartum, uns*04/28/2017 02/02/2018 Encounter for supervision of normal i*03/12/2019 05/23/2022 Patient request for diagnostic testing [Z01.89] 08/30/2021 05/23/2022 Low-lying placenta [O44.40] 11/30/2021 05/23/2022 Supervision of normal [Z34.90] 11/17/2024 Encounter Status:Closed by SONYA ALBARADO on 11/18/24 Normal [facility] BACTERIAL VAGINOSIS NAATon 0 11-17-2024 Lactobacillus crispatus+gasseri+je nsenii + Gardnerella vaginalis + Atopobium vaginae rRNA EDOUARD+probe Ql (Vag fld) Not detected Normal Not detected [facility] Comment on above: Order Comment: Speci men Type: FLUID SPECIMEN Ordering Facility: [facility] Address: [address] [place] [address] Performed By: #### L [id number] #### [facility] [facility] CLIA [id number] [address] [place] [address] [place] Bacteria Ur Culton 5 Bacteria identified Cx Nom (U) ORGANISM ID: 1 10,000 -<50,000 CFU/ml Normal urogenital jaquelin Normal [facility] Comment on above: Performed By: #### G TGSTF #### [facility] CLIA [id number] [address] [place] [address] [place] C. trachomatis+N. gonorrhoea e DNA EDOUARD+probe Ql (Unsp spec)on 11-17-2024 C. trachomatis rRNA EDOUARD+probe Ql (Unsp spec) Not detected Normal Not detected [facility] Comment on above: Order Comment: Speci men Type: BLOOD SPECIMEN Ordering Facility: [facility] Address: [address] [place] [address] Performed By: #### G TGSTF #### [facility] CLIA [id number] [address] [place] [address] [place] N. gonorrhoeae rRNA EDOUARD+probe Ql (Unsp spec) Not detected Normal Not detected [facility] Comment on above: Order Comment: Speci men Type: BLOOD SPECIMEN Ordering Facility: [facility] Address: [address] [place] [address] Performed By: #### G TGSTF #### [facility] CLIA [id number] [address] [place] [address] [place] HOPE/TRICHOMONAS NAATon 0 11-17-2024 C. glabrata RNA EDOUARD+probe Ql (Vag fld) Not detected Normal Not detected [facility] Comment on above: Order Comment: Speci men Type: FLUID SPECIMEN Ordering Facility: [facility] Address: [address] [place] [address] Performed By: #### L [id number] #### [facility] CLIA [id number] [address] [place] [address] [place] Hope sp DNA EDOUARD+probe Ql (Vag fld) Not detected Normal Not detected [facility] Comment on above: Order Comment: Speci men Type: FLUID SPECIMEN Ordering Facility: [facility] Address: [address] [place] [address] Result Comment: The Hope species group target includes C. albicans, C. tropicalis, C. parapsilosis, and C. dubliniensis. Performed By: #### L [id number] #### [facility] CLIA [id number] [address] [place] [address] [place] T. vaginalis DNA EDOUARD+probe Ql (Unsp spec) Not detected Normal Not detected [facility] Comment on above: Order Comment: Speci men Type: FLUID SPECIMEN Ordering Facility: [facility] Address: [address] [place] [address] Performed By: #### L [id number] #### [facility] CLIA [id number] [address] [place] [address] [place] HIGH RISK HUMAN PAPILLOMA REGINA (HPV), PCR FOR DETECTION AND GENOTYPINGon 11-17-2024 HPV 16 Ag Ql (Unsp spec) Not detected Normal Not detected [facility] Comment on above: Order Comment: Speci men Type: FLUID SPECIMEN Ordering Facility: [facility] Address: [address] [place] [address] Performed By: #### L [id number] #### [facility] CLIA [id number] [address] [place] [address] [place] HPV 18 Ag Ql (Unsp spec) Not detected Normal Not detected [facility] Comment on above: Order Comment: Speci men Type: FLUID SPECIMEN Ordering Facility: [facility] Address: [address] [place] [address] Performed By: #### L [id number] #### [facility] CLIA [id number] [address] [place] [address] [place] HPV 31+33+35+39+45+51+52 +56+58+59+66+68 DNA EDOUARD+probe Ql (Cvx) Not detected Normal Not detected [facility] Comment on above: Order Comment: Speci men Type: FLUID SPECIMEN Ordering Facility: [facility] Address: [address] [place] [address] Result Comment: High Risk HPV Other Type includes HPV types 31, 33, 35, 39, 45, 51, 52, 56, 58, 59, 66 and 68. Performed By: #### L [id number] #### [facility] CLIA [id number] [address] [place] [address] [place] PAP TESTon 11-17-2024 ADEQUACY Normal [facility] Comment on above: Order Comment: Speci men Type: FLUID SPECIMEN Ordering Facility: [facility] Address: [address] [place] [address] Result Comment: Sati sfactory for interpretation. Transformation zone present Limited cellularity. Performed By: #### L [id number] #### [facility] CLIA [id number] [address] [place] [address] [place] CASE REPORT Normal [facility] Comment on above: Order Comment: Speci men Type: FLUID SPECIMEN Ordering Facility: [facility] Address: [address] [place] [address] Result Comment: Gyne cologic Cytology Report Case: [id number] Authorizing Provider: Wen Guadarrama APRN.CNM Collected: 11/17/2024 01:51 PM Ordering Location: OB/Gynecology Received: 11/17/2024 04:30 PM First Screen: Christofer Joshua Tech Specimen: Pap Test, ThinPrep, Cervix Performed By: #### L [id number] #### [facility] CLIA [id number] [address] [place] [address] [place] CLINICAL HISTORY, CYTOLOGY, IMPORT CUSTOMER SERVICE MANAGER (Indicate Weeks) Normal [facility] Comment on above: Order Comment: Speci men Type: FLUID SPECIMEN Ordering Facility: [facility] Address: [address] [place] [address] Performed By: #### L [id number] #### [facility] CLIA [id number] [address] [place] [address] [place] FINAL PERFORMING LAB Normal [facility] Comment on above: Order Comment: Speci men Type: FLUID SPECIMEN Ordering Facility: [facility] Address: [address] [place] [address] Result Comment: Tech nical component, card cleaner screening performed at [facility], [address] [place] [address] [place] [address] CLIA# [id number] Diagnostic interpretation performed at [facility], [address] [place], [place] [id number] CLIA# [id number] Risk Tech: Joshua Park M.D. Performed By: #### L [id number] #### [facility] CLIA [id number] [address] [place] [address] [place] INTERPRETATION, CYTOLOGY, IMPORT CUSTOMER SERVICE MANAGER Normal [facility] Comment on above: Order Comment: Speci men Type: FLUID SPECIMEN Ordering Facility: [facility] Address: [address] [place] [address] Result Comment: Nega tive for intraepithelial lesion or malignancy. at 1430 EST Performed By: #### L [id number] #### [facility] CLIA [id number] [address] [place] [address] [place] LMP 09/24/2024 Normal [facility] Comment on above: Order Comment: Speci men Type: FLUID SPECIMEN Ordering Facility: [facility] Address: [address] [place] [address] Performed By: #### L [id number] #### [facility] CLIA [id number] [address] [place] [address] [place] PAP DISCLAIMER COMMENT The Pap Smear is a screening test for cervical cancer. False negative results occur with all screening tests, emphasizing the need for rescreening at recommended intervals, and clinical correlation. Normal [facility] Comment on above: Order Comment: Speci men Type: FLUID SPECIMEN Ordering Facility: [facility] Address: [address] [place] [address] Performed By: #### L [id number] #### [facility] CLIA [id number] [address] [place] [address] [place] PAP ENROBING MACHINE FEEDER COMMENT This specimen has been analyzed by the ThinPrep Imaging System, an automated imaging and review system, which assists the laboratory in evaluating cells on ThinPrep Pap tests. Following automated imaging, selected morel from every slide are reviewed by a card cleaner. Normal [facility] Comment on above: Order Comment: Speci men Type: FLUID SPECIMEN Ordering Facility: [facility] Address: [address] [place] [address] Performed By: #### L [id number] #### [facility] CLIA [id number] [address] [place] [address] [place] [address] [place] POC SENIOR LIVING ADVISOR ULTRASOUNDon 11-17-19 25 Indication Viability; confirm cardiac activity Impression Single intrauterine gestational sac, CRL is appropriate for clinical dates, corresponding to KOREY 07/01/2025 FHR 164 bpm Recommendations Follow up for 1st Trimester Anatomy with Nuchal Translucency as clinically indicated if desired. Method Transabdominal and transvaginal ultrasound examination Barnett . Number of embryos: 1 Dating LMP on: 09/24/2024 GA by LMP 7 w + 5 d KOREY by LMP: 07/01/2025 Ultrasound examination on: 11/17/2024 GA by U/S based upon: CRL GA by U/S 7 w + 4 d KOREY by U/S: 07/02/2025 Assigned: based on the LMP, selected on 11/17/2024 Assigned GA 7 w + 5 d Assigned KOREY: 07/01/2025 Biometry Standard FHR 164 bpm CRL 13.6 mm 7w 4d 79% Hadlock Assessment Gestational sac: visualized Location: intrauterine Yolk sac: visualized Embryo: visualized CRL 13.6 mm 7w 4d 79% Hadlock Cardiac activity: present FHR 164 bpm General Evaluation Cardiac activity present. FHR 164 bpm Performed By: Wen Guadarrama CNM Read By: Wen Guadarrama CNM MATERNAL MEDICINE [facility] Radiology Study observation (narrative) [facility] Basophil percentageon 2022 Basophil percentage 0 SEEN /hpf 0-5 [facility] Work Phone: Bilirubin Test strip Ql (U)o n 10-04-2022 Bilirubin Ql (U) Negative Negative [facility] Work Phone: Emergency Department Summary on 10-04-2022 Emergency Department Summary [facility] Medical Records Department [address] [place] [address] Emergency Department Summary 10/04/22 MR#: [id number] Acct: [id number] Name: NELDA BIGGS Rep #: [id number] : 1995 27 From: Dipesh Danielle MD PCP: Care Physician,No Primary Status:REG ER Location: ED HPI HPI - Female History of Present Illness Chief Complaint: Complaint Narrative Narrative: 27-year-old female who denies significant past medical history presents with gross hematuria that began today. She states that she has not had her menses for over a year because she became , gave in March of last year, and now is breast-feeding. She had lower abdominal cramping that began today, and thought maybe she was starting her period. When she urinated she had an episode of gross hematuria. She denies any fevers or chills. No nausea or vomiting. She does not take blood thinners. No bleeding diathesis. She went to urgent care, where she had gross hematuria again. They sent her to the emergency department for evaluation. She denies any flank pain. She urinated here to give a sample, and states that her gross hematuria has improved. PFSH PFS Home Medications vits,calcium no.78-iron fumarate-folic acid 29 mg-1 mg tablet (Prenatabs FA) 1 tab PO DAILY 12/11/17 [History Last Taken 04/11/22 09:00] Allergy/AdvReac Type Severity Reaction Status Date / Time No Known Allergies Allergy Verified 10/04/22 16:25 Social History Smoking Status: Never smoker ROS ROS ED ROS Narrative Constitutional: No fever, no chills. HEENT: No sore throat. No neck pain. No loss of vision. No rhinorrhea. Cardiovascular: No chest pain. No palpitations. No pedal edema. Respiratory: No cough, no shortness of breath. Abdominal: No abdominal pain currently. May have had lower abdominal cramping this morning. No nausea. No vomiting. Genitourinary: No dysuria. 2 episodes of gross hematuria. Musculoskeletal: No myalgias. No arthralgias. Mild low back pain earlier. Neurologic: No headaches. No dizziness. No lightheadedness. Skin: No rash. No change in color. Psychiatric: No depression. No anxiety. EXAM Physical Exam Narrative Exam Narrative: Afebrile. Vital signs noted. HEENT: Normocephalic. Atraumatic. PERRL, EOMI. Neck soft and supple. No point tenderness or step off. Cardiovascular: Regular rate and rhythm. No murmurs, rubs, or gallops appreciated. Respiratory: No tachypnea. Lungs clear to auscultation bilaterally. Gastrointestinal: Abdomen soft, nontender, with normoactive bowel sounds. No rebound or guarding. CVA tenderness to percussion bilaterally. Neurological: Awake. Alert. Nonfocal, nonlateralizing. Skin: No rash. Normal color. No pallor. Musculoskeletal: No pedal edema. Full range of motion extremities. Const Vital Signs: 10/04/22 16:26 Temperature 97.6 F L Temperature Source Temporal Pulse Rate 82 Respiratory Rate 17 Blood Pressure 133/82 H Blood Pressure Mean 99 Pulse Ox 98 Oxygen Delivery Method Room Air MDM MDM MDM Narrative Medical decision making narrative: I had a lengthy discussion with the patient and her mother. It does not sound like she is having ureteral colic. I do not feel emergent CT is currently indicated. Her hematuria is improving. Through shared decision-making, we will start with urinalysis and urine test. I reviewed her laboratory work. Her urine test is negative. Her urinalysis is negative for nitrites and negative for ketones. There is 250 occult blood. Microanalysis shows greater than 100 RBCs but no evidence of WBCs. I do not feel that she has a cystitis that requires antibiotics. In discussion with the patient, she is resting comfortably on the cot at reexamination at approximately 1755. I discussed obtaining a CT scan for her painless hematuria, but she declines. I feel that she can be discharged safely to follow-up with urology. She was referred to Dr. Ward. Patient states that she prefers to follow-up with her primary care physician or this urologist and that she does not want any further work-up here in the emergency department and she would like to be discharged. She is to return with any increased hematuria, new or worsening symptoms. KENNASH can be discharged safely home to follow-up and I stressed the importance of follow- up for her hematuria. Disposition is discharged home in stable condition. Lab Data Attestation: I reviewed the patient's lab results. Labs: Laboratory Results - last 24 hr 10/04/22 17:10 Urine Color Yellow Urine Clarity Sl. Cloudy Urine pH 6.5 Ur Specific [place] 1.010 Urine Protein 15 H Urine Glucose (UA) Normal Urine Ketones Negative Urine Occult Blood 250 H (more content not included)... Normal [facility] Ketones Test strip Ql (U)on 10-04-2022 Ketones Ql (U) Negative Negative [facility] Work Phone: Laboratory - Chemistry and C hemistry - challengeon 10-04-2022 HCG ( test) Ql (U) Negative [facility] Work Phone: Comment on above: Very dilute urine sp ecimens, as indicated by a low specificgravity, may not contain group sales representative levels of hCG. If is still suspected, a first morning urinespecimen should be collected 48 hours later and tested. Mucus LM Ql (Urine sed)on Mucus Ql (Urine sed) 0 SEEN /hpf [facility] Work Phone: Nitrite Test strip Ql (U)on 10-04-2022 Nitrite Ql (U) Negative Negative [facility] Work Phone: ,Urineon 10-04-2022 Beta HCG ( test) Ql (U) Negative Normal [facility] Comment on above: Order Comment: CLEAN CATCH Result Comment: Very dilute urine specimens, as indicated by a low specific gravity, may not contain group sales representative levels of hCG. If is still suspected, a first morning urine specimen should be collected 48 hours later and tested. Performed By: #### L 400.7600, L400.0001 #### [facility] [address] [place], [address] Protein Test strip Ql (U)on 10-04-2022 Protein Ql (U) 15 mg/dl Negative [facility] Work Phone: Squamous epithelial cells de tection in urine sediment by light microscopyon 10-04-2022 Epithelial cells.squamous LM Ql (Urine sed) 0-5 SEEN /hpf 5-10 [facility] Work Phone: Urinalysis, Completeon 10-04 EPI,SQUAMOUS 0-5 SEEN Normal 5-10 [facility] Comment on above: Order Comment: CLEAN CATCH Performed By: #### L 400.7600, L400.0001 #### [facility] [address] [place], [address] RBC > 100 SEEN Normal 0-5 [facility] Comment on above: Order Comment: CLEAN CATCH Performed By: #### L 400.7600, L400.0001 #### [facility] [address] [place], [address] BACTERIA 0 SEEN Normal None Seen [facility] Comment on above: Order Comment: CLEAN CATCH Performed By: #### L 400.7600, L400.0001 #### [facility] [address] [place], [address] Mucus Ql (Urine sed) 0 SEEN Normal [facility] Comment on above: Order Comment: CLEAN CATCH Performed By: #### L 400.7600, L400.0001 #### [facility] [address] [place], [address] WBC 0 SEEN Normal 0-5 [facility] Comment on above: Order Comment: CLEAN CATCH Performed By: #### L 400.7600, L400.0001 #### [facility] [address] [place], [address] Urine blood detectionon 09-22 RBC Ql (U) 250 /ul Negative [facility] Work Phone: RBC Ql (U) > 100 SEEN /hpf 0-5 [facility] Work Phone: Urine clarityon 10-04-2022 Clarity (U) Sl. Cloudy Clear [facility] Work Phone: Urine color determinationon 10-04-2022 Color (U) Yellow Yellow [facility] Work Phone: Urine glucose detectionon Glucose Ql (U) Normal mg/dl Normal [facility] Work Phone: Urine leukocyte esterase det ection by dipstickon 10-04-2022 Leukocyte esterase Test strip Ql (U) Negative Negative [facility] Work Phone: Urine pHon 10-04-2022 pH (U) 6.5 [pH] 5.0 - 8.0 [facility] Work Phone: Urine sediment bacteria coun t by microscopy (number/high power field)on 10-04-2022 Bacteria LM.HPF (Urine sed) [#/Area] 0 /[HPF] None Seen [facility] Work Phone: Urine specific gravity measu rementon 10-04-2022 Specific gravity (U) [Rel density] 1.010 1.002-1.030 [facility] Work Phone: Urobilinogen Auto test strip Ql (U)on 10-04-2022 Urobilinogen Ql (U) Normal mg/dl Normal [facility] Work Phone: [phone] Absolute lymphocyte counton 04-11-2022 Lymphocytes Auto (Unsp spec) [#/Vol] 2.32 10*3/uL 0.83-4.51 [facility] Work Phone: Basophil percentageon 2021 Basophils/100 WBC (Bld) 0.2 % 0-1 [facility] Work Phone: Eosinophils/100 WBC (Bld) 0.1 % 0-5 [facility] Work Phone: Neutrophils (Bld) [#/Vol] 8.6 10*3/uL 2.0-7.7 [facility] Work Phone: Neutrophils/100 WBC (Bld) 71.5 % 47-70 [facility] Work Phone: WBC (Bld) [#/Vol] 12.0 10*3/uL 4.4-11.0 [facility] Work Phone: Blood erythrocytes count (nu mber/volume)on 07-21-2022 RBC (Bld) [#/Vol] 3.70 10*6/uL 4.2-5.4 [facility] Work Phone: Blood hemoglobin measurement (mass/volume)on 04-11-2022 Hemoglobin (Bld) [Mass/Vol] 11.0 g/dL 12.0-15.0 [facility] Work Phone: Blood lymphocytes/100 leukoc yteson 04-11-2022 Lymphocytes/100 WBC (Bld) 19.4 % 19-41 [facility] Work Phone: [phone] Blood monocytes/100 leukocyt eson 04-11-2022 Monocytes/100 WBC (Bld) 8.5 % 0-10 [facility] Work Phone: Blood platelet mean volumeon 04-11-2022 Platelet mean volume (Bld) [Entitic vol] 12.5 fL 6.2-12.0 [facility] Work Phone: CBC W/Diff, Automatedon -10 23-2021 Absolute Lymph 2.32 X10 3/uL Normal 0.83-4.51 [facility] Comment on above: Performed By: #### Gwendolyn ROSENBAUM, L100.0100 #### [facility] [address] [place], [address] Absolute Neut 8.6 X10 3/uL High 2.0-7.7 [facility] Comment on above: Performed By: #### Gwendolyn ROSENBAUM, L100.0100 #### [facility] [address] [place], [address] Basophils/100 WBC (Bld) 0.2 % Normal 0-1 [facility] Comment on above: Performed By: #### Gwendolyn ROSENBAUM, L100.0100 #### [facility] [address] [place], [address] Eosinophils/100 WBC (Bld) 0.1 % Normal 0-5 [facility] Comment on above: Performed By: #### Gwendolyn ROSENBAUM, L100.0100 #### [facility] [address] [place], [address] Erythrocyte distribution width (RBC) [Ratio] 13.6 % Normal 11.6-14.6 [facility] Comment on above: Performed By: #### B TS, L100.0100 #### [facility] [address] [place], [address] Hematocrit (Bld) [Volume fraction] 32.1 % Low 37-47 [facility] Comment on above: Performed By: #### Gwendolyn TS, L100.0100 #### [facility] [address] [place], [address] Hemoglobin (Bld) [Mass/Vol] 11.0 g/dL Low 12.0-15.0 [facility] Comment on above: Performed By: #### Gwendolyn ROSENBAUM, L100.0100 #### [facility] [address] [place], [address] IG% 0.300 Normal 0.0-0.9 [facility] Comment on above: Result Comment: IG% - Immature Granulocytes (promyelocytes, myelocytes and metamyelocytes) > 1% indicates that a LEFT SHIFT is Present. Performed By: #### Gwendolyn TS, L100.0100 #### [facility] [address] [place], [address] Lymphocytes/100 WBC (Bld) 19.4 % Normal 19-41 [facility] Comment on above: Performed By: #### Gwendolyn TS, L100.0100 #### [facility] [address] [place], [address] MCH (RBC) [Entitic mass] 29.7 pg Normal 27.0-32.0 [facility] Comment on above: Performed By: #### Gwendolyn TS, L100.0100 #### [facility] [address] [place], [address] MCHC (RBC) [Mass/Vol] 34.3 g/dL Normal 32-36 [facility] Comment on above: Performed By: #### Gwendolyn ROSENBAUM, L100.0100 #### [facility] [address] [place], [address] MCV (RBC) [Entitic vol] 86.8 fL Normal 81-99 [facility] Comment on above: Performed By: #### Gwendolyn ROSENBAUM, L100.0100 #### [facility] [address] [place], [address] Monocytes/100 WBC (Bld) 8.5 % Normal 0-10 [facility] Comment on above: Performed By: #### Gwendolyn ROSENBAUM, L100.0100 #### [facility] [address] [place], [address] Neutrophils/100 WBC (Bld) 71.5 % High 47-70 [facility] Comment on above: Performed By: #### Gwendolyn ROSENBAUM, L100.0100 #### [facility] [address] [place], [address] Nucleated RBC (Bld) [#/Vol] 0 10*3/uL Normal 0-5 [facility] Comment on above: Performed By: #### Gwendolyn ROSENBAUM, L100.0100 #### [facility] [address] [place], [address] Platelet mean volume (Bld) [Entitic vol] 12.5 fL High 6.2-12.0 [facility] Comment on above: Performed By: #### Gwendolyn ROSENBAUM, L100.0100 #### [facility] [address] [place], [address] Platelets (Bld) [#/Vol] 181 10*3/uL Normal 150-450 [facility] Comment on above: Performed By: #### Gwendolyn ROSENBAUM, L100.0100 #### [facility] [address] [place], [address] RBC (Bld) [#/Vol] 3.70 10*6/uL Low 4.2-5.4 [facility] Comment on above: Performed By: #### B TS, L100.0100 #### [facility] [address] [place], [address] RDW SD 42.4 fl Normal 35.1-43.9 [facility] Comment on above: Performed By: #### B TS, L100.0100 #### [facility] [address] [place], [address] WBC (Bld) [#/Vol] 12.0 10*3/uL High 4.4-11.0 [facility] Comment on above: Performed By: #### Gwendolyn ROSENBAUM, L100.0100 #### [facility] [address] [place], [address] COVID 19 AG RAPID (RN COLLE T)on 04-11-2022 SARS-CoV-2 (COVID-19) RNA EDOUARD+probe Ql (Unsp spec) *Negative results from patients with symptom onset beyond five days should be treated as presumptive and confirmed by a molecular assay if clinically necessary. Negative results should not be used as the sole basis for treatment or for patient management. SARS-CoV-2 Ag Resp Ql IA.rapid *Positive results do not differentiate between SARS-CoV and SARS-CoV-2. If differentiation of the specific SARS virus is desired an additional sample and an additional order is required. SARS-CoV-2 Ag Resp Ql IA.rapid * This test has not been FDA cleared or approved; the test has been authorized by FDA under an Emergency Use Authorization (EAU) for use by laboratories certified under CLIA that meet the requirements to perform moderate, high, or waived complexity tests. SARS-CoV-2 Ag Resp Ql IA.rapid Normal Reference Range: Negative SARS-CoV-2 (COVID 19) Negative RAPID METHOD BinaxNow COVID19 Ag Card Normal [facility] Comment on above: Performed By: #### M 100.505 #### [facility] [address] [place], [address] Determination of erythrocyte mean corpuscular volume (MCV)on 04-11-2022 MCV (RBC) [Entitic vol] 86.8 fL 81-99 [facility] Work Phone: H AND P Exam - OB/GYNon 03-23 H&P Exam - TIE MAKER [facility] Medical Records Department [address] [place] [address] H P Exam - TIE MAKER 04/11/22 1713 MR#: [id number] Acct: [id number] Name: NELDA BIGGS Rep #: [id number] : 1995 26 From: Cristina Young CNM PCP: Care Physician,No Primary Status:ADM IN Location: [address] - General General Date of Admission: 04/11/22 HPI Narrative NELDA BIGGS, is a 26 F at 38.6 weeks who presents in spontaneous, active labor. She was seen in office today and was 5cm. Continued to have contractions after membrane sweeping. Positive movement. Denies any loss of fluid or vaginal bleeding. was initially complicated by low lying placenta but this resolved. GBS negative. Maternal Data Information KOREY Calculator Estimated Delivery Date Method Current WG Current Estimate 04/19/22 Manual 38w 6d PFSH PFSH Medical History no medical history Home Medications vits,calcium no.78-iron fumarate-folic acid 29 mg-1 mg tablet (Prenatabs FA) 1 tab PO DAILY 12/11/17 [History Last Taken 04/11/22 09:00] Allergy/AdvReac Type Severity Reaction Status Date / Time No Known Allergies Allergy Verified 04/11/22 16:08 Surgical History no surgical history Social History Smoking Status: Never smoker History Elective abortions Hx Para 2 Spontaneous abortions Hx # Term Pregnancies Ectopic pregnancies Hx # Pregnancies Multiple births # of living children Visit Details OB Flowsheet Initial Weight: Not Recorded Date -???-???-???-???-???- ???-???-???-???-???-? ??-???- EGA Weight BP Urine Prot -???-???-???-???-???- ???-???-???-???-???-? ??-???- Glucose FHR FuHt Pres Dilation -???-???-???-???-???- ???-???-???-???-???-? ??-???- Effaced St Visit Note 04/11/22 -???-???-???-???-???- ???-???-???-???-???-? ??-???- 38w 6d 180 lb 126/87 -???-???-???-???-???- ???-???-???-???-???-? ??-???- -???-???-???-???-???- ???-???-???-???-???-? ??-???- NST FHR Rate Baby A Baseline: 135 Variability:: Moderate Accelerations:: 15 x 15 Decelerations:: None NST Reactive:: Yes FHR Category:: Category I Uterine Activity:: 1-2 minutes, palpate moderate and relaxed in between ROS Eyes Eyes: Denies blurry vision Cardiovascular Cardiovascular: Reports none; Denies chest pain at rest, chest pain with activity or dizziness Respiratory/Chest Respiratory/Chest: Denies cough or dyspnea Gastrointestinal Gastrointestinal: Reports none and other; Denies diarrhea or vomiting Genitourinary Genitourinary: Denies dysuria Musculoskeletal Musculoskeletal: Reports none Integumentary Integumentary: Reports none; Denies rash Neurologic Neurologic: Denies dizziness, headache(s) or other visual disturbances Psychiatric Psychiatric: Reports none Vital Signs Vital Signs Vital Signs: 04/11/22 16:42 04/11/22 16:42 04/11/22 16:42 Temperature Temperature Source Pulse Rate 91 97 Blood Pressure 126/87 H BP Systolic 126 BP Diastolic 87 Pulse Ox 04/11/22 16:42 04/11/22 16:43 04/11/22 16:43 Temperature 100.8 F H Temperature Source Temporal Pulse Rate Blood Pressure BP Systolic BP Diastolic Pulse Ox 97 04/11/22 16:43 Temperature 99.0 F Temperature Source Pulse Rate Blood Pressure BP Systolic BP Diastolic Pulse Ox Weight Weight: 180 lb Body Mass Index (BMI) 30.9 Physical Exam Const alert, oriented x3 and no apparent distress General Appearance: cooperative Orientation / Consciousness: awake Exam Limitations: no limitations HEENT normocephalic Head and Scalp: normal to inspection Eyes General Eye: normal appearance of both eyes Neck full ROM and no lymphadenopathy Lymph Lymphatic: no lymphadenopathy noted Chest inspection of chest normal Resp normal respiratory effort, normal air movement and clear to auscultation bilaterally Effort and Inspection: able to speak in complete sentences and symmetric chest movement Cardio regular rate and regular rhythm GI normal to inspection, nondistended, normoactive bowel sounds Manual OB Exam: presentation cephalic, dilated 8, effaced 80 and station -2 Back/Spine normal ROM Extremity full ROM and no calf tenderness Skin no rashes or lesions noted General Skin Exam: no breakdown Neuro oriented x3 and CN's II-XII intact bilaterally Psych mental status grossly normal and thought process normal Labs Labs Labs: Blood Type O POSITIVE Antibody Screen NEGATIVE Hct 32.1 % (37-47) L Hgb 11.0 g/dL (12.0-15.0) L Rhogam given: No Assessment Plan (1) Spontaneou (more content not included)... Normal [facility] Hematocrit Auto (Bld) [Volum e fraction]on 04-11-2022 Hematocrit (Bld) [Volume fraction] 32.1 % 37-47 [facility] Work Phone: Laboratory - Hematology and Cell countson 04-11-2022 Erythrocyte distribution width (RBC) [Entitic vol] 42.4 fL 35.1-43.9 [facility] Work Phone: Erythrocyte distribution width (RBC) [Ratio] 13.6 % 11.6-14.6 [facility] Work Phone: Immature granulocytes/100 WBC (Bld) 0.300 % 0.0-0.9 [facility] Work Phone: Comment on above: IG% - Immature Granu locytes (promyelocytes, myelocytes and metamyelocytes) > 1% indicates that a LEFT SHIFT is Present. MCH (RBC) [Entitic mass] 29.7 pg 27.0-32.0 [facility] Work Phone: Nucleated RBC/100 WBC (Bld) [Ratio] 0 % 0-5 [facility] Work Phone: MCHC Auto (RBC) [Mass/Vol]on 04-11-2022 MCHC (RBC) [Mass/Vol] 34.3 g/dL 32-36 [facility] Work Phone: Operative Reporton Operative Report [facility] Medical Records Department [address] [place] [address] Operative Report 04/11/22 1825 MR#: [id number] Acct: [id number] Name: NELDA BIGGS Rep #: [id number] : 1995 26 From: Cristina Young CNM PCP: Care Physician,No Primary Status:ADM IN Location: [place] [address] Assessment Plan (1) Multiparity: (2) 38 weeks gestation of : (3) (spontaneous vaginal delivery): Maternal Data Information KOREY Calculator Estimated Delivery Date Method Current WG Current Estimate 04/19/22 Manual 38w 6d Vaginal Delivery Maternal Presentation Maternal Presentation: Active Labor Maternal Presentation: at 38.6 weeks gestation that presented in spontaneous, active labor. Type of Induction: Amniotomy Operative Information Date of Procedure: 04/11/22 Pre-Operative Diagnosis: Term gestation, spontaneous onset of labor Post-Operative Diagnosis: , Live male Surgery / Procedure Performed: Spontaneous Vaginal Delivery Type of Anesthesia: None Estimated Blood Loss: 200 Time of Delivery: 18:15 Findings Description of Procedure: Patient having urge to push- Currently in side lying position. CE - complete +2 station. With initial push, head delivered followed by anterior shoulder, posterior shoulder and remainder of infant body without any traction. FOB assisted with placing on maternal abdomen after delivery. Vigorous male infant attended to by nursing staff. Pitocin IV started for active management of the third stage of labor. 3 vessel cord clamped and cut by FOB after 2 minute delay. Infant placed immediately skin to skin on patient. Cord blood collected and sent. Placenta delivered spontaneously and intact. Vaginal sweep completed by me. Vagina and perineum intact. EBL 200 cc. APGARS 8/9. and patient bonding well at this time. Dr. Ames notified of delivery. Presentation: Vertex and DEBBI Amniotic Membrane Rupture Type: Artificial Time of Membrane Rupture: 1700 Amniotic Fluid Description: Clear Placental Delivery Description: Spontaneous Placenta Disposition: [facility] Cord Vessel Description: 3 Vessels Cord Entanglement: None Infant A Gender: Male (1 minute): 8 (5 minute): 9 Delayed Cord Clamping: Yes Post Vaginal Delivery Medications Given After Delivery: IV Pitocin Episiotomy Description: None Laceration: None Complication Complications: None 04/11/22 1837 Cosigner Signature (if applicable): CC: PAWEL Young; No Primary Care Physician Signed [facility] Platelets bldon 04-11-2022 Platelets (Bld) [#/Vol] 181 10*3/uL 150-450 [facility] Work Phone: Type AND Screenon 04-11-2022 Ab SCREEN GEL Negative [facility] Comment on above: Order Comment: Labor Performed By: #### B , L100.0100 #### [facility] [address] [place], [place], [id number] ABO and Rh group Nom (Bld) Blood group O Rh(D) positive [facility] Comment on above: Order Comment: Labor Performed By: #### B , L100.0100 #### [facility] [address] [place], [place], [id number] URINE OB DIP B/Oon 2 Glucose Ql (U) Negative Neg mg/dL [facility] Protein.monoclonal (U) [Mass/Vol] Negative Neg mg/dL [facility] URINE OB DIP B/Oon 2 Glucose Ql (U) Negative Neg mg/dL [facility] Protein.monoclonal (U) [Mass/Vol] Negative Neg mg/dL [facility] OBSTETRIC ULTRAS[facility] 0 [facility] B/Oon 2 Glucose Ql (U) Negative Neg mg/dL [facility] Protein.monoclonal (U) [Mass/Vol] Negative Neg mg/dL [facility] URINE OB DIP B/Oon 2 Glucose Ql (U) Negative Neg mg/dL [facility] Protein.monoclonal (U) [Mass/Vol] Negative Neg mg/dL [facility] OBSTETRIC ULTRASOUND WHIon 0 02-26-2022 [facility] URINE OB DIP B/Oon 2 Glucose Ql (U) Negative Neg mg/dL [facility] Protein.monoclonal (U) [Mass/Vol] Negative Neg mg/dL [facility] URINE OB DIP B/Oon 2 Glucose Ql (U) Negative Neg mg/dL [facility] Protein.monoclonal (U) [Mass/Vol] Negative Neg mg/dL [facility] URINE OB DIP B/Oon 2 Glucose Ql (U) Negative Neg mg/dL [facility] Protein.monoclonal (U) [Mass/Vol] Negative Neg mg/dL [facility] Vital Signs Date Time Vital Sign Value Performing Clinician Facility 06-03-2025 10:37-0400 Body mass index (BMI) [Ratio] 32.1 kg/m2 Ariela Stevens MD Work Phone: [facility] 06-03-2025 10:37-0400 Body weight 84.82 kg Ariela Stevens MD Work Phone: [facility] 06-03-2025 10:37-0400 Diastolic blood pressure 64 mm[Hg] Ariela Stevens MD Work Phone: [facility] 06-03-2025 10:37-0400 Systolic blood pressure 100 mm[Hg] Ariela Stevens MD Work Phone: [facility] 05-20-2025 13:18-0400 Body mass index (BMI) [Ratio] 32.1 kg/m2 Joanna Amaral MD Work Phone: [facility] 05-20-2025 13:18-0400 Body weight 84.82 kg Joanna Amaral MD Work Phone: [facility] 05-20-2025 13:18-0400 Diastolic blood pressure 62 mm[Hg] Joanna Amaral MD Work Phone: [facility] 05-20-2025 13:18-0400 Systolic blood pressure 114 mm[Hg] Joanna Amaral MD Work Phone: [facility] 05-11-2025 13:21-0400 Body mass index (BMI) [Ratio] 32.06 kg/m2 Cristina Plotts ELECTION CLERK.CNM Work Phone: [facility] 05-11-2025 13:21-0400 Body weight 84.73 kg Cristina Plotts ELECTION CLERK.CNM Work Phone: [facility] 05-11-2025 13:21-0400 Diastolic blood pressure 62 mm[Hg] Cristina Plotts ELECTION CLERK.CNM Work Phone: [facility] 05-11-2025 13:21-0400 Systolic blood pressure 98 mm[Hg] Cristina Plotts ELECTION CLERK.CNM Work Phone: [facility] 04-15-2025 11:12-0400 Body mass index (BMI) [Ratio] 31.58 kg/m2 Cristina Plotts ELECTION CLERK.CNM Work Phone: [facility] 04-15-2025 11:12-0400 Body weight 83.46 kg Cristina Plotts ELECTION CLERK.CNM Work Phone: [facility] 04-15-2025 11:12-0400 Diastolic blood pressure 60 mm[Hg] Cristina Plotts ELECTION CLERK.CNM Work Phone: [facility] 04-15-2025 11:12-0400 Systolic blood pressure 100 mm[Hg] Cristina Plotts ELECTION CLERK.CNM Work Phone: [facility] 03-31-2025 09:09-0400 Body mass index (BMI) [Ratio] 31.24 kg/m2 Cristina Plotts ELECTION CLERK.CNM Work Phone: [facility] 03-31-2025 09:09-0400 Body weight 82.56 kg Cristina Connellyts ELECTION CLERK.CNM Work Phone: [facility] 03-31-2025 09:09-0400 Diastolic blood pressure 58 mm[Hg] Cristina Plotts ELECTION CLERK.CNM Work Phone: [facility] 03-31-2025 09:09-0400 Systolic blood pressure 100 mm[Hg] Cristina Plotts ELECTION CLERK.CNM Work Phone: [facility] 03-04-2025 08:44-0400 Body mass index (BMI) [Ratio] 31.41 kg/m2 Bautista Haury ELECTION CLERK.ANIMAL HUSBANDRY PROFESSOR Work Phone: [facility] 03-04-2025 08:44-0400 Body weight 83.01 kg Bautista Haury ELECTION CLERK.ANIMAL HUSBANDRY PROFESSOR Work Phone: [facility] 03-04-2025 08:44-0400 Diastolic blood pressure 60 mm[Hg] Bautista Haury ELECTION CLERK.ANIMAL HUSBANDRY PROFESSOR Work Phone: [facility] 03-04-2025 08:44-0400 Systolic blood pressure 102 mm[Hg] Bautista Haury ELECTION CLERK.ANIMAL HUSBANDRY PROFESSOR Work Phone: [facility] 02-04-2025 10:59-0400 Body mass index (BMI) [Ratio] 29.87 kg/m2 Sonya Garcia MD Work Phone: [facility] 02-04-2025 10:59-0400 Body weight 78.93 kg Sonya Garcia MD Work Phone: [facility] 02-04-2025 10:59-0400 Diastolic blood pressure 62 mm[Hg] Sonya Garcia MD Work Phone: [facility] 02-04-2025 10:59-0400 Systolic blood pressure 108 mm[Hg] Sonya Garcia MD Work Phone: [facility] 01-07-2025 08:56-0400 Body mass index (BMI) [Ratio] 29.7 kg/m2 Bautista Fuentesnguyễn ELECTION CLERK.ANIMAL HUSBANDRY PROFESSOR Work Phone: [facility] 01-07-2025 08:56-0400 Body weight 78.47 kg Bautista Lay ELECTION CLERK.ANIMAL HUSBANDRY PROFESSOR Work Phone: [facility] 01-07-2025 08:56-0400 Diastolic blood pressure 70 mm[Hg] Bautista Lay ELECTION CLERK.ANIMAL HUSBANDRY PROFESSOR Work Phone: [facility] 01-07-2025 08:56-0400 Systolic blood pressure 120 mm[Hg] Bautista Lay ELECTION CLERK.ANIMAL HUSBANDRY PROFESSOR Work Phone: [facility] 12-14-2024 14:01-0400 Body mass index (BMI) [Ratio] 28.84 kg/m2 Sonya Garcia MD Work Phone: [facility] 12-14-2024 14:01-0400 Body weight 76.2 kg Sonya Garcia MD Work Phone: [facility] 12-14-2024 14:01-0400 Diastolic blood pressure 70 mm[Hg] Sonya Garcia MD Work Phone: [facility] 12-14-2024 14:01-0400 Systolic blood pressure 116 mm[Hg] Sonya Garcia MD Work Phone: [facility] 11-17-2024 13:03-0500 Body height 162.6 cm Wen Guadarrama APRN.CNM Work Phone: [facility] 11-17-2024 13:03-0500 Body mass index (BMI) [Ratio] 29.18 kg/m2 Wen Guadarrama ELECTION CLERK.CNM Work Phone: [facility] 11-17-2024 13:03-0500 Body weight 77.11 kg Wen Guadarrama APRN.CNM Work Phone: [facility] 11-17-2024 13:03-0500 Diastolic blood pressure 68 mm[Hg] Wen Guadarrama ELECTION CLERK.CNM Work Phone: [facility] 11-17-2024 13:03-0500 Systolic blood pressure 100 mm[Hg] Wen Thierry SANCHEZ Work Phone: [facility] 10-04-2022 16:26-0500 Body height 162.56 cm [facility] Work Phone: 10-04-2022 16:26-0500 Body mass index (BMI) [Ratio] 27.1 kg/m2 [facility] Work Phone: 10-04-2022 16:26-0500 Body temperature 97.6 [degF] [facility] Work Phone: 10-04-2022 16:26-0500 Body weight 71.71 kg [facility] Work Phone: 10-04-2022 16:26-0500 Diastolic blood pressure 82 mm[Hg] [facility] Work Phone: 10-04-2022 16:26-0500 Heart rate 82 /min [facility] Work Phone: 10-04-2022 16:26-0500 Respiratory rate 17 /min [facility] Work Phone: 10-04-2022 16:26-0500 SaO2% (BldA) [Mass fraction] 98 % [facility] Work Phone: 10-04-2022 16:26-0500 Systolic blood pressure 133 mm[Hg] [facility] Work Phone: 05-23-2022 14:59-0400 Body weight 71.22 kg Ariela Stevens MD Work Phone: [facility] 05-23-2022 14:59-0400 Diastolic blood pressure 60 mm[Hg] Ariela Stevens MD Work Phone: [facility] 05-23-2022 14:59-0400 Systolic blood pressure 110 mm[Hg] Ariela Stevens MD Work Phone: [facility] 05-15-2022 15:10-0400 Body temperature 100.8 [degF] Cristina Young ELECTION CLERK.CNM Work Phone: [facility] 05-15-2022 15:10-0400 Body weight 71.22 kg Cristina Young ELECTION CLERK.CNM Work Phone: [facility] 05-15-2022 15:10-0400 Diastolic blood pressure 66 mm[Hg] Cristina Young ELECTION CLERK.CNM Work Phone: [facility] 05-15-2022 15:10-0400 Systolic blood pressure 102 mm[Hg] Cristina Young ELECTION CLERK.CNM Work Phone: [facility] 04-13-2022 14:27-0400 Body temperature 97.8 [degF] [facility] Work Phone: 04-13-2022 14:27-0400 Diastolic blood pressure 86 mm[Hg] [facility] Work Phone: 04-13-2022 14:27-0400 Heart rate 110 /min [facility] Work Phone: 04-13-2022 14:27-0400 Respiratory rate 16 /min [facility] Work Phone: 04-13-2022 14:27-0400 Systolic blood pressure 121 mm[Hg] [facility] Work Phone: 04-13-2022 07:49-0400 SaO2% (BldA) [Mass fraction] 98 % [facility] Work Phone: 04-11-2022 16:08-0400 Body height 162.56 cm [facility] Work Phone: 04-11-2022 16:08-0400 Body mass index (BMI) [Ratio] 30.9 kg/m2 [facility] Work Phone: 04-11-2022 16:08-0400 Body weight 81.64 kg [facility] Work Phone: 04-11-2022 10:59-0400 Body weight 83.01 kg Ariela Stevens MD Work Phone: [facility] 04-11-2022 10:59-0400 Diastolic blood pressure 78 mm[Hg] Ariela Stevens MD Work Phone: [facility] 04-11-2022 10:59-0400 Systolic blood pressure 118 mm[Hg] Ariela Stevens MD Work Phone: [facility] 04-03-2022 10:58-0400 Body weight 81.65 kg Ariela Stevens MD Work Phone: [facility] 04-03-2022 10:58-0400 Diastolic blood pressure 66 mm[Hg] Ariela Stevens MD Work Phone: [facility] 04-03-2022 10:58-0400 Systolic blood pressure 104 mm[Hg] Ariela Stevens MD Work Phone: [facility] 03-22-2022 13:19-0400 Body weight 82.1 kg Cristina Plotts ELECTION CLERK.CNM Work Phone: [facility] 03-22-2022 13:19-0400 Diastolic blood pressure 70 mm[Hg] Cristina Plotts ELECTION CLERK.CNM Work Phone: [facility] 03-22-2022 13:19-0400 Systolic blood pressure 116 mm[Hg] Cristina Plotts ELECTION CLERK.CNM Work Phone: [facility] 03-12-2022 13:07-0400 Body weight 82.83 kg Petar Ames MD Work Phone: [facility] 03-12-2022 13:07-0400 Diastolic blood pressure 66 mm[Hg] Petar Ames MD Work Phone: [facility] 03-12-2022 13:07-0400 Systolic blood pressure 118 mm[Hg] Petar Ames MD Work Phone: [facility] 02-12-2022 13:38-0400 Body weight 81.19 kg Petar Ames MD Work Phone: [facility] 02-12-2022 13:38-0400 Diastolic blood pressure 66 mm[Hg] Petar Ames MD Work Phone: [facility] 02-12-2022 13:38-0400 Systolic blood pressure 112 mm[Hg] Petar Ames MD Work Phone: [facility] 01-28-2022 10:39-0400 Body weight 81.65 kg Wen Guadarrama ELECTION CLERK.CNM Work Phone: [facility] 01-28-2022 10:39-0400 Diastolic blood pressure 60 mm[Hg] Wen Guadarrama ELECTION CLERK.CNM Work Phone: [facility] 01-28-2022 10:39-0400 Systolic blood pressure 112 mm[Hg] Wen Guadarrama ELECTION CLERK.CNM Work Phone: [facility] 12-28-2021 13:40-0400 Body weight 79.83 kg Joanna Amaral MD Work Phone: [facility] 12-28-2021 13:40-0400 Diastolic blood pressure 60 mm[Hg] Joanna Amaral MD Work Phone: [facility] 12-28-2021 13:40-0400 Systolic blood pressure 104 mm[Hg] Joanna Amaral MD Work Phone: [facility] Encounters Encounter Date Encounter Type Care Provider Facility Start: 06-16-2025 End: 06-16-2025 ambulatory CRISTINA YOUNG Facility:[facility] Start: 06-10-2025 End: 06-10-2025 ambulatory SONYA GARCIA Facility:[facility] Start: 06-03-2025 End: 06-03-2025 Patient encounter procedure Ariela Stevens MD Work Phone: OB/Gynecology Comment on above: Encounter for superv ision of other normal in third trimester (HCC) (Primary Dx); Macrosomia of fetus affecting management of mother in third trimester, single or unspecified fetus (HCC); Uterine size-date discrepancy, third trimester (HCC); 36 weeks gestation of (HCC) Start: 06-03-2025 End: 06-03-2025 ambulatory ARIELA STEVENS Facility:[facility] Start: 05-20-2025 End: 05-20-2025 Patient encounter procedure Joanna Amaral MD Work Phone: OB/Gynecology Comment on above: Encounter for superv ision of other normal in third trimester (HCC) (Primary Dx); 34 weeks gestation of (HCC) Start: 05-20-2025 End: 05-20-2025 ambulatory JOANNA AMARAL Facility:[facility] Start: 05-16-2025 End: 05-16-2025 Patient encounter procedure [employer] [facility] Comment on above: Macrosomia of fetus affecting management of mother in third trimester, single or unspecified fetus (HCC) (Primary Dx); 32 weeks gestation of (HCC); Encounter for supervision of other normal in third trimester (HCC); Uterine size-date discrepancy, third trimester (HCC) Start: 05-16-2025 End: 05-16-2025 ambulatory CRISTINA YOUNG Facility:[facility] Start: 05-11-2025 End: 05-11-2025 Patient encounter procedure Cristina Young ELECTION CLERK.CNM Work Phone: OB/Gynecology Comment on above: 32 weeks gestation o f (HCC) (Primary Dx); Encounter for supervision of other normal in third trimester (HCC); Uterine size-date discrepancy, third trimester (HCC) Start: 05-11-2025 End: 05-11-2025 ambulatory CRISTINA YOUNG Facility:[facility] Start: 04-28-2025 End: 04-28-2025 ambulatory RACHEL WAN Facility:[facility] Start: 04-19-2025 End: 04-19-2025 Telephone encounter Nurse [employer] Bin Tender Asya Corbett Work Phone: Obstetrics/Gynecology Comment on above: PRAF Start: 04-15-2025 End: 04-15-2025 Patient encounter procedure Cristina Connellyjuan MILLAN.PAWEL Work Phone: OB/Gynecology Comment on above: 29 weeks gestation o f (HCC) (Primary Dx); Encounter for supervision of other normal in third trimester (HCC); Elevated glucose tolerance test Start: 04-15-2025 End: 04-15-2025 [facility] Start: 04-06-2025 End: 06-06-2025 Follow-up encounter Bautista Lay APRN.ANIMAL HUSBANDRY PROFESSOR Work Phone: OB/Gynecology Start: 04-06-2025 End: 04-06-2025 ambulatory BAUTISTA LAY [facility] Start: 03-31-2025 End: 05-31-2025 Follow-up encounter Bautista Lay APRN.ANIMAL HUSBANDRY PROFESSOR Work Phone: OB/Gynecology Comment on above: Results Start: 03-31-2025 End: 03-31-2025 Patient encounter procedure Cristina Godwinjuan MILLAN.CNAdebayo Work Phone: OB/Gynecology Comment on above: Encounter for superv ision of other normal in second trimester (HCC) (Primary Dx); 26 weeks gestation of (HCC) Start: 03-31-2025 End: 03-31-2025 [facility] BAUTISTA LAY [facility] Start: 03-07-2025 End: 03-07-2025 Telephone encounter Nurse [employer] Bin Tender Asya Corbett Work Phone: Obstetrics/Gynecology Comment on above: PRAF Start: 03-04-2025 End: 03-04-2025 Patient encounter procedure Bautista aLy APRN.ANIMAL HUSBANDRY PROFESSOR Work Phone: OB/Gynecology Comment on above: Encounter for superv ision of other normal in second trimester (HCC) (Primary Dx); 23 weeks gestation of (HCC); Screening for diabetes mellitus Start: 03-04-2025 End: [facility]-04-2025 [facility] [facility] Start: 02-04-2025 End: 02-04-2025 Office outpatient visit 15 minutes Sonya Garcia MD Work Phone: OB/Gynecology Comment on above: Encounter for superv ision of other normal in second trimester (HCC) (Primary Dx); 19 weeks gestation of (HCC) Start: 02-04-2025 End: 02-04-2025 Patient encounter procedure Whi Tech 1 [employer] Bin Tender [employer] Maternal Medicine Comment on above: Encounter for anatomic survey (HCC) (Primary Dx); 19 weeks gestation of (HCC) Start: 02-04-2025 End: 02-04-2025 ambulatory [facility] Facility:[facility] Start: 01-07-2025 End: 01-07-2025 Patient encounter procedure Bautista Lay APRN.ANIMAL HUSBANDRY PROFESSOR Work Phone: OB/Gynecology Comment on above: Encounter for superv ision of other normal in second trimester (HCC) (Primary Dx); 15 weeks gestation of (HCC) Start: 01-07-2025 End: 01-07-2025 ambulatory BAUTISTA LAY Facility:[facility] Start: 12-27-2024 End: 02-26-2025 Follow-up encounter Bautista Lay APRN.CNP Work Phone: OB/Gynecology Start: 12-22-2024 End: 12-22-2024 ambulatory JOANNA AMAARL Facility:[facility] Start: 12-21-2024 End: 12-22-2024 ambulatory Sonya Garcia MD Work Phone: OB/Gynecology Comment on above: Genetic testing Start: 12-15-2024 End: 12-16-2024 Telephone encounter Bautista Lay APRN.ANIMAL HUSBANDRY PROFESSOR Work Phone: OB/Gynecology Comment on above: Patient Question Start: 12-14-2024 End: 12-14-2024 Office outpatient visit 15 minutes Sonya Garcia MD Work Phone: OB/Gynecology Comment on above: Encounter for superv ision of other normal in first trimester (Primary Dx); 11 weeks gestation of Start: 12-14-2024 End: 12-14-2024 ambulatory [facility] Facility:[facility] Start: 12-14-2024 End: 12-14-2024 Patient encounter procedure Whi Tech 1 [employer] Bin Tender [employer] [facility] Maternal Medicine Comment on above: Encounter for anatomic survey (Primary Dx); Encounter for supervision of other normal in first trimester; 11 weeks gestation of Start: 11-25-2024 End: 01-25-2025 Follow-up encounter Joanna Amaral MD Work Phone: OB/Gynecology Start: 11-18-2024 End: 11-18-2024 Telephone encounter Sonya Albarado RN Maternal Medicine Comment on above: Inspector Fibrous Wallboard - O ther (PRAF) Start: 11-17-2024 End: 11-17-2024 ambulatory WEN GUADARRAMA Facility:[facility] Start: 11-17-2024 End: 11-17-2024 Patient encounter procedure Wen Guadarrama APRN.CNM Work Phone: OB/Gynecology Comment on above: Encounter for superv ision of other normal in first trimester (Primary Dx); Encounter for test, result positive Start: 10-04-2022 End: 10-04-2022 Emergency department patient visit Dipesh Danielle Facility:[facility] Start: 10-04-2022 End: 10-04-2022 Emergency department patient visit [facility] Start: 05-23-2022 End: 05-23-2022 Patient encounter procedure Ariela Stevens MD Work Phone: OB/Gynecology Comment on above: care and examination (Primary Dx); Encounter for screening for malignant neoplasm of cervix Start: 05-15-2022 End: 05-15-2022 Patient encounter procedure Cristina Young APRN.CNM Work Phone: OB/Gynecology Comment on above: Lactating mother (Pr imary Dx); Pain of breast during Start: 04-12-2022 ambulatory Cristina victoria ELECTION CLERK.CNM Work Phone: OB/Gynecology Comment on above: Ob Delivery Note Start: 04-11-2022 End: 04-13-2022 Evaluation and management of inpatient Cristina Young Facility:[facility] Start: 04-11-2022 End: 04-13-2022 Evaluation and management of inpatient [facility] Start: 04-11-2022 End: 04-11-2022 Patient encounter procedure Ariela Stevens MD Work Phone: OB/Gynecology Comment on above: Excessive grow th affecting management of in third trimester, single or unspecified fetus (Primary Dx); 38 weeks gestation of Start: 04-03-2022 End: 04-03-2022 Patient encounter procedure Ariela Stevens MD Work Phone: OB/Gynecology Comment on above: Excessive grow th affecting management of in third trimester, single or unspecified fetus (Primary Dx); 37 weeks gestation of Start: 03-22-2022 End: 03-22-2022 Patient encounter procedure Cristina Young APRN.CNM Work Phone: OB/Gynecology Comment on above: Anemia during pregna ncy in third trimester (Primary Dx); 36 weeks gestation of Uterine size-date di screpancy, third trimester (Primary Dx); 36 weeks gestation of Start: 03-12-2022 End: 03-12-2022 Patient encounter procedure Petar Ames MD Work Phone: OB/Gynecology Comment on above: 34 weeks gestation o f (Primary Dx); Encounter for supervision of other normal in third trimester Start: 02-26-2022 End: 02-26-2022 Patient encounter procedure Carmen Livingston MD Work Phone: Maternal Medicine Comment on above: Suspected placental problem not found (Primary Dx); 32 weeks gestation of ; Excessive growth affecting management of , antepartum, single or unspecified fetus Start: 02-12-2022 End: 02-12-2022 Patient encounter procedure Petar Ames MD Work Phone: OB/Gynecology Comment on above: Encounter for superv ision of other normal in third trimester (Primary Dx); 30 weeks gestation of ; Excessive growth affecting management of , antepartum, single or unspecified fetus Start: 01-28-2022 End: 01-28-2022 Patient encounter procedure Wen Guadarrama APRN.CNAdebayo Work Phone: OB/Gynecology Comment on above: 28 weeks gestation o f (Primary Dx); Low-lying placenta Start: 12-28-2021 End: 12-28-2021 Patient encounter procedure Joanna Amaral MD Work Phone: OB/Gynecology Comment on above: Encounter for superv ision of other normal in second trimester (Primary Dx); 24 weeks gestation of Start: 08-30-2021 End: 05-23-2022 Patient requested procedure Joanna Amaral MD Work Phone: [facility] Work Phone: Procedures Date Procedure Procedure Detail Performing Clinician Start: 06-03-2025 Urnls dip stick/tabl et rgnt non-auto w/o micrscp Ariela Stevens MD Work Phone: Start: 05-20-2025 Urnls dip stick/tabl et rgnt non-auto w/o micrscp Joanna Amaral MD Work Phone: Start: 05-16-2025 Us preg uterus after 1st trimest / gestation Cristina Young APRN.CNM Work Phone: Start: 02-04-2025 Us preg uterus after 1st trimest / gestation Wen Guadarrama APRN.CNM Work Phone: Start: 12-14-2024 Antibody screen BAUTISTA PENALOZA Comment on above: Order Comment: Speci men Type: BLOOD SPECIMEN Ordering Facility: [facility] Address: [address] [place] [address] Performed By: #### T SPN #### CC MAIN BLOOD BANK [facility] [id number] [address] [place], [place] [address] [address] [place] Start: 12-14-2024 Us preg uterus after 1st trimest / gestation Wen Guadrarama APRN.CNM Work Phone: Start: 11-17-2024 Us uterus limited 1/> fetuses Wen Guadarrama APRN.CNM Work Phone: Start: 04-11-2022 URINE OB DIP B/O Ariela Stevens MD Work Phone: Start: 04-03-2022 URINE OB DIP B/O Ariela Stevens MD Work Phone: Start: 03-22-2022 URINE OB DIP B/O Charles Young ELECTION CLERK.CNM Work Phone: Start: 03-22-2022 Us preg uterus after 1st trimest 09/22 gestation Petar Ames MD Work Phone: Start: 03-12-2022 URINE OB DIP B/O Charles Young ELECTION CLERK.CNM Work Phone: Start: 02-26-2022 Us preg uterus after 1st trimest 09/22 gestation Petar Ames MD Work Phone: Start: 02-12-2022 URINE OB DIP B/O Petar Ames MD Work Phone: Start: 01-28-2022 URINE OB DIP B/O Benigno Guadarrama ELECTION CLERK.CNM Work Phone: Start: 12-28-2021 URINE OB DIP B/O Trung Amaral MD Work Phone: Viral antigen assay Plan of Treatment Date Care Activity Detail Author Start: 11-17-2029 Screening for malign ant neoplasm of cervix Cervical Cancer Screening [facility] Start: 06-24-2025 End: 06-24-2025 Patient encounter procedure 06/24/2025 9:15 AM EDT Routine Office Visit OB/Gynecology [address] [place] [id number] Cristina Young APRN.CNM [address] [place] [address] OB OB/Gynecology Comment on above: OB Start: 06-17-2025 End: 06-17-2025 Patient encounter procedure 06/17/2025 9:15 AM EDT Routine Office Visit OB/Gynecology [address] [place] [id number] Wen Guadarrama APRN.CNM [address] [place] [address] OB OB/Gynecology Comment on above: OB Start: 06-16-2025 End: 06-16-2025 Patient encounter procedure OB/Gynecology Comment on above: OB Growth Start: 06-10-2025 End: 06-10-2025 Patient encounter procedure 06/10/2025 9:40 AM EDT Routine Office Visit OB/Gynecology [address] [place] [address] Sonya Garcia MD [address] [place] [address] OB OB/Gynecology Comment on above: OB Start: 06-03-2025 End: 06-03-2025 Patient encounter procedure 06/03/2025 10:40 AM EDT Routine Office Visit OB/Gynecology [address] [place] [address] Ariela Dee MD [address] [place] [address] OB OB/Gynecology Comment on above: OB Start: 05-23-2025 Influenza vaccination [facility] Start: 05-23-2025 RSV Vaccine (1 - Ris k 1-dose series) RSV Vaccine (1 - Risk 1-dose series) [facility] Start: 05-23-2025 Screening for malign ant neoplasm of cervix Cervical Cancer Screening [facility] Start: 05-20-2025 End: 05-20-2025 Patient encounter procedure 05/20/2025 9:45 AM EDT Routine Office Visit OB/Gynecology [address] [place] [address] Cristina Young APRN.CN [address] [place] [address] OB OB/Gynecology Comment on above: OB Start: 05-16-2025 End: 05-16-2025 Patient encounter procedure 05/16/2025 10:00 AM EDT Routine Office Visit Maternal Medicine [address] [place] [address] Growth Maternal Medicine Comment on above: Growth Start: 04-28-2025 End: 04-28-2025 Patient encounter procedure 04/28/2025 1:10 PM EDT Routine Office Visit OB/Gynecology [address] [place] [address] Rachel Wan MD [address] [place] [address] OB OB/Gynecology Comment on above: OB Start: 04-15-2025 End: 04-15-2025 Patient encounter procedure 04/15/2025 11:00 AM EDT Routine Office Visit OB/Gynecology [address] [place] [address] Cristina Young APRN.CNM [address] [place] [address] OB OB/Gynecology Comment on above: OB Start: 04-01-2025 End: 04-01-2025 Patient encounter procedure 04/01/2025 8:45 AM EDT Routine Office Visit OB/Gynecology [address] [place] [address] Bautista Lay APRN.ANIMAL HUSBANDRY PROFESSOR [address] [place] [address] OB OB/Gynecology Comment on above: OB Start: 04-01-2025 End: 04-01-2025 ambulatory 04/01/2025 8:30 AM EDT Results Only [place] [facility] [address] [place] [address] Glucose [place] [address] [facility] Comment on above: Glucose Start: 03-31-2025 End: 03-31-2025 Patient encounter procedure 03/31/2025 9:15 AM EDT Routine Office Visit OB/Gynecology [address] [place] [address] Cristina Young APRN.CNM [address] [place] [address] 27 week appointment OB/Gynecology Comment on above: 27 week angela ointment Start: 03-04-2025 End: 06-03-2025 ANEMIA REFLEX PANEL ANEMIA REFLEX PANEL Lab Routine Encounter for supervision of other normal in second trimester (HCC) 23 weeks gestation of ([facility]) Screening for diabetes mellitus Expected: 03/04/2025, Expires: 06/03/2025 [facility] Comment on above: Expected: 03/04/2025 , Expires: 06/03/2025 Start: 03-04-2025 End: 03-04-2026 GESTATIONAL GLUCOSE SCREEN, 1-HOUR, 50 GRAM, NON-FASTING GESTATIONAL GLUCOSE SCREEN, 1-HOUR, 50 GRAM, NON-FASTING Lab Routine Encounter for supervision of other normal in second trimester (HCC) 23 weeks gestation of (HCC) Screening for diabetes mellitus Expected: 03/04/2025, Expires: 03/04/2026 [facility] Work Phone: Comment on above: Expected: 03/04/2025 , Expires: 03/04/2026 Start: 03-04-2025 End: 03-04-2026 SYPHILIS TREPONEMAL W/REFLEX SYPHILIS TREPONEMAL W/REFLEX Lab Routine Encounter for supervision of other normal in second trimester (HCC) 23 weeks gestation of (HCC) Screening for diabetes mellitus Expected: 03/04/2025, Expires: 03/04/2026 [facility] Comment on above: Expected: 03/04/2025 , Expires: 03/04/2026 Start: 03-04-2025 End: 03-04-2025 Patient encounter procedure 03/04/2025 8:45 AM EDT Routine Office Visit OB/Gynecology [address] [place] [address] Bautista Lay APRN.ANIMAL HUSBANDRY PROFESSOR [address] [place] [address] OB OB/Gynecology Comment on above: OB Start: 02-04-2025 End: 02-04-2025 Patient encounter procedure Maternal Medicine Comment on above: Anatomy OB Start: 01-25-2025 End: 01-25-2025 Patient encounter procedure Maternal Medicine Comment on above: Anatomy OB Start: 01-07-2025 End: 01-07-2025 Patient encounter procedure 01/07/2025 9:00 AM EDT Routine Office Visit OB/Gynecology [address] [place] [address] Bautista Lay APRN.ANIMAL HUSBANDRY PROFESSOR [address] [place] [address] OB OB/Gynecology Comment on above: OB Start: 12-22-2024 End: 03-23-2025 Chromosome 21 trisomy [Presence] in Blood or Tissue by Cytogenetics [id number] PLUS Lab Routine Encounter for supervision of other normal in first trimester Expected: 12/22/2024, Expires: 03/23/2025 [facility] Work Phone: Comment on above: Expected: 12/22/2024 , Expires: 03/23/2025 Start: 12-14-2024 End: 12-14-2024 Patient encounter procedure Maternal Medicine Comment on above: Nuchal Nuchal @ 1:30/OB Start: 12-07-2024 End: 12-07-2024 Patient encounter procedure 12/07/2024 1:10 PM EDT Routine Office Visit OB/Gynecology [address] [place], [place] [id number] Joanna Amaral MD [address] [place] [address] 1st OB - LMP 09/24/2024 OB/Gynecology Comment on above: 1st OB - LMP Start: 11-17-2024 End: 02-16-2025 ANEMIA REFLEX PANEL ANEMIA REFLEX PANEL Lab Routine Encounter for supervision of other normal in first trimester Expected: 11/17/2024, Expires: 02/16/2025 [facility] Work Phone: Comment on above: Expected: 11/17/2024 , Expires: 02/16/2025 Start: 11-17-2024 End: 02-16-2025 Hemoglobin A1c in Blood HEMOGLOBIN A1C Lab Routine Encounter for supervision of other normal in first trimester Expected: 11/17/2024, Expires: 02/16/2025 [facility] Comment on above: Expected: 11/17/2024 , Expires: 02/16/2025 Start: 11-17-2024 End: 02-16-2025 HEMOGLOBIN EVALUATION CASCADE HEMOGLOBIN EVALUATION CASCADE Lab Routine Encounter for supervision of other normal in first trimester Expected: 11/17/2024, Expires: 02/16/2025 [facility] Comment on above: Expected: 11/17/2024 , Expires: 02/16/2025 Start: 11-17-2024 End: 02-16-2025 Hepatitis B virus surface Ag [Presence] in Serum HEPATITIS B SURFACE ANTIGEN Lab Routine Encounter for supervision of other normal in first trimester Expected: 11/17/2024, Expires: 02/16/2025 [facility] Comment on above: Expected: 11/17/2024 , Expires: 02/16/2025 Start: 11-17-2024 End: 02-16-2025 Hepatitis C virus Ab [Presence] in Serum HEPATITIS C ANTIBODY IA WITH CONFIRMATION Lab Routine Encounter for supervision of other normal in first trimester Expected: 11/17/2024, Expires: 02/16/2025 [facility] Comment on above: Expected: 11/17/2024 , Expires: 02/16/2025 Start: 11-17-2024 End: 02-16-2025 HIV 1+2 Ab [Presence] in Serum or Plasma by Immunoassay HIV 1/2 COMBO WITH REFLEX TO DIFFERENTIATION Lab Routine Encounter for supervision of other normal in first trimester Expected: 11/17/2024, Expires: 02/16/2025 [facility] Comment on above: Expected: 11/17/2024 , Expires: 02/16/2025 Start: 11-17-2024 End: 11-17-2025 OBSTETRIC ULTRASOUND WHI OBSTETRIC ULTRASOUND WHI Anc Imaging Routine Encounter for supervision of other normal in first trimester Expected: 11/17/2024, Expires: 11/17/2025 [facility] Comment on above: Expected: 11/17/2024 , Expires: 11/17/2025 Start: 11-17-2024 End: 02-16-2025 RUBELLA IGG ANTIBODY RUBELLA IGG ANTIBODY Lab Routine Encounter for supervision of other normal in first trimester Expected: 11/17/2024, Expires: 02/16/2025 [facility] Comment on above: Expected: 11/17/2024 , Expires: 02/16/2025 Start: 11-17-2024 End: 02-16-2025 SYPHILIS TREPONEMAL W/REFLEX SYPHILIS TREPONEMAL W/REFLEX Lab Routine Encounter for supervision of other normal in first trimester Expected: 11/17/2024, Expires: 02/16/2025 [facility] Comment on above: Expected: 11/17/2024 , Expires: 02/16/2025 Start: 11-17-2024 End: 02-16-2025 TYPE + SCREEN TYPE + SCREEN Blood Bank Routine Encounter for supervision of other normal in first trimester Expected: 11/17/2024, Expires: 02/16/2025 [facility] Comment on above: Expected: 11/17/2024 , Expires: 02/16/2025 Start: 05-23-2024 Covid-19 Vaccine ( season) Covid-19 Vaccine ( season) [facility] Start: 05-23-2024 Influenza vaccination Influenza Vacc ine (#1) [facility] Start: 05-23-2022 Influenza vaccination [facility] Start: 04-13-2022 Patient discharge [facility] Work Phone: Start: 04-11-2022 Administration of medication [facility] Work Phone: Start: 04-11-2022 Application of ice collar, cap or bag [facility] Work Phone: Start: 04-11-2022 Catheterization of vein [facility] Work Phone: Start: 04-11-2022 Introduction of urin rita catheter [facility] Work Phone: Start: 04-11-2022 Measuring intake and output [facility] Work Phone: Start: 04-11-2022 Notification of physician [facility] Work Phone: Start: 04-11-2022 Procedure discontinued [facility] Work Phone: Start: 04-11-2022 Provision of activit y privileges [facility] Work Phone: Start: 04-11-2022 Vital signs measurements [facility] Work Phone: Start: 04-11-2022 [facility] Work Phone: Start: 04-11-2022 Admission procedure [facility] Work Phone: Start: 03-22-2022 End: 05-22-2022 CBC W Auto Differential panel - Blood CBC + DIFF Lab Routine Anemia during in third trimester Expected: 03/22/2022, Expires: 05/22/2022 [facility] Work Phone: Comment on above: Expected: 03/22/2022 , Expires: 05/22/2022 Start: 03-12-2022 PAP TESTING PAP TESTING [facility] Start: 12-28-2021 End: 02-27-2022 CBC W Auto Differential panel - Blood CBC + DIFF Lab Routine Encounter for supervision of other normal in second trimester 24 weeks gestation of Expected: 12/28/2021, Expires: 02/27/2022 [facility] Work Phone: Comment on above: Expected: 12/28/2021 , Expires: 02/27/2022 Start: 12-28-2021 End: 02-27-2022 GEST GLUC SCREEN, 1-HR, 50 GM, NON-FASTING GEST GLUC SCREEN, 1-HR, 50 GM, NON-FASTING Lab Routine Encounter for supervision of other normal in second trimester 24 weeks gestation of Expected: 12/28/2021, Expires: 02/27/2022 [facility] Work Phone: Comment on above: Expected: 12/28/2021 , Expires: 02/27/2022 Start: 12-28-2021 End: 02-27-2022 SYPHILIS TOTAL W/REFLEX SYPHILIS TOTAL W/REFLEX Lab Routine Encounter for supervision of other normal in second trimester 24 weeks gestation of Expected: 12/28/2021, Expires: 02/27/2022 [facility] Work Phone: Comment on above: Expected: 12/28/2021 , Expires: 02/27/2022 Start: 2021 HPV Vaccine (1 - 3-d ose SCDM series) HPV Vaccine (1 - 3-dose SCDM series) [facility] Start: 04-09-2017 Urine microalbumin profile [facility] Start: 2012 Anxiety Screening Anxiety Screening [facility] Start: 2012 Depression Screening Depression Scre ening [facility] Start: 2006 Adult depression screening assessment DEPRESSION SCREENING [facility] Start: 1999 COVID-19 VACCINE (#1) COVID-19 VACCI NE (#1) [facility] Start: 1999 COVID-19 VACCINE (1) COVID-19 VACCIN E (1) [facility] Start: 1994 COVID-19 VACCINE (#1) COVID-19 VACCI NE (#1) [facility] Bacteria identified in Urine by Culture BACTERIAL CULTURE, URINE Microbiology Routine Encounter for supervision of other normal in first trimester 11/17/2024 1:51 PM EST [facility] BACTERIAL VAGINOSIS NAAT BACTERI AL VAGINOSIS NAAT Lab Routine Encounter for supervision of other normal in first trimester 11/17/2024 1:51 PM [facility] HOPE/TRICHOMONAS NAAT HOPE /TRICHOMONAS NAAT Lab Routine Encounter for supervision of other normal in first trimester 11/17/2024 1:51 PM [facility] Chlamydia trachomatis+Neisseria gonorrhoeae DNA [Presence] in Unspecified specimen by EDOUARD with probe detection GONORRHEA/CHLAMYDIA NAAT Lab Routine Encounter for supervision of other normal in first trimester 11/17/2024 1:51 PM [facility] OBSTETRIC ULTRASOUND WHI OBSTETR IC ULTRASOUND WHI Anc Imaging Routine 30 weeks gestation of Excessive growth affecting management of , antepartum, single or unspecified fetus Ordered: 02/12/2022 [facility] Work Phone: Comment on above: Ordered: 02/12/2022 OBSTETRIC ULTRASOUND WHI OBSTETR IC ULTRASOUND WHI Anc Imaging Routine 34 weeks gestation of Encounter for supervision of other normal in third trimester Ordered: 03/12/2022 [facility] Work Phone: Comment on above: Ordered: 03/12/2022 End: 11-07-2025 OBSTETRIC ULTRASOUND WHI OBSTETRIC ULTRASOUND WHI Anc Imaging Routine 32 weeks gestation of ([facility]) Encounter for supervision of other normal in third trimester ([facility]) Uterine size-date discrepancy, third trimester ([facility]) Once per month for 5 Occurrences starting 05/11/2025 until 11/07/2025 [facility] Work Phone: Comment on above: Once per month for 5 Occurrences starting 05/11/2025 until 11/07/2025 PAP FLUID CERVICAL SCREENING PAP FLUID CERVICAL SCREENING Lab Routine Encounter for screening for malignant neoplasm of cervix 05/23/2022 3:21 PM EDT [facility] Work Phone: PAP TEST PAP TEST Lab Rou darlene Encounter for supervision of other normal in first trimester 11/17/2024 1:51 PM EST [facility] Patient Education [facility] Work Phone: Patient referral [facility] Work Phone: ROUTINE, GR OUP B STREP PCR ROUTINE, GROUP B STREP PCR Microbiology Routine 36 weeks gestation of 03/22/2022 1:41 PM EDT [facility] Work Phone: ROUTINE, GR OUP B STREPTOCOCCUS BY PCR ROUTINE, GROUP B STREPTOCOCCUS BY PCR Microbiology Routine Encounter for supervision of other normal in third trimester ([facility]) 06/03/2025 10:55 AM EDT [facility] Work Phone: [facility] Immunizations Immunization Date Immunization Notes Care Provider [facility] tetanus toxoid, redu asra diphtheria toxoid, and acellular pertussis vaccine, adsorbed Joanna Amaral MD Work Phone: [facility] Work Phone: 04-23-1999 diphtheria, tetanus toxoids and acellular pertussis vaccine Joanna Amaral MD Work Phone: [facility] Work Phone: 04-23-1999 measles, mumps and rubella virus vaccine Joanna Amaral MD Work Phone: [facility] Work Phone: 04-23-1999 poliovirus vaccine, inactivated Joanna Amaral MD Work Phone: [facility] Work Phone: 07-29-1995 diphtheria, tetanus toxoids and acellular pertussis vaccine Joanna Amaral MD Work Phone: [facility] Work Phone: 05-07-1995 haemophilus influenz ae type b vaccine, HbOC conjugate Joanna Amaral MD Work Phone: [facility] Work Phone: 05-07-1995 measles, mumps and rubella virus vaccine Joanna Amaral MD Work Phone: [facility] Work Phone: 02-20-1995 Chicken Pox (disease) Trung Amaral MD Work Phone: [facility] Work Phone: 1994 diphtheria, tetanus toxoids and acellular pertussis vaccine Joanna Amaral MD Work Phone: [facility] Work Phone: 1994 haemophilus influenz ae type b vaccine, HbOC conjugate Joanna Amaral MD Work Phone: [facility] Work Phone: 1994 hepatitis B vaccine, pediatric or pediatric/adolescent dosage Joanna Amaral MD Work Phone: [facility] Work Phone: 1994 poliovirus vaccine, inactivated Joanna Amaral MD Work Phone: [facility] Work Phone: 1994 diphtheria, tetanus toxoids and acellular pertussis vaccine Joanna Amaral MD Work Phone: [facility] Work Phone: 1994 haemophilus influenz ae type b vaccine, HbOC conjugate Joanna Amaral MD Work Phone: [facility] [facility] Work Phone: 1994 poliovirus vaccine, inactivated Joanna Amaral MD Work Phone: [facility] Work Phone: 1994 diphtheria, tetanus toxoids and acellular pertussis vaccine Joanna Amaral MD Work Phone: [facility] Work Phone: 1994 haemophilus influenz ae type b vaccine, HbOC conjugate Joanna Amaral MD Work Phone: [facility] Work Phone: 1994 hepatitis B vaccine, pediatric or pediatric/adolescent dosage Joanna Amaral MD Work Phone: [facility] Work Phone: 1994 poliovirus vaccine, inactivated Joanna Amaral MD Work Phone: [facility] Work Phone: 1994 hepatitis B vaccine, pediatric or pediatric/adolescent dosage Joanna Amaral MD Work Phone: [facility] Work Phone: Payers Date Payer Category Payer Medicaid [id number] 2024 Medicaid [id number] 2022 Self-pay [id number] 2022 Unknown [id number] 2020 Unknown ANTHEM BLUE ACCE SS PPO [id number] 2020-Present [phone] [address] [place] [address] PPO [id number] 2020 Unknown KP QUNITANILLA ACCE SS PPO [id number] 2020-Present [phone] [address] [place] [address] PPO [id number] Private Health Insurance [id number] Unknown [id number] Unknown [id number] Social History Date Type Detail Facility Start: 06-23-2012 End: 05-23-2022 Tobacco smoking status NHIS Never smoked tobacco [facility] Work Phone: Start: 11-30-2021 End: 03-31-2025 Alcohol intake Current non-drinker of alcohol (finding) [facility] Start: 08-30-2021 Education 17 [facility] Start: 07-27-2021 [facility] Start: 1995 Sex Assigned At Female [facility] Start: 12-18-2021 End: 04-03-2022 Exposure to SARS-CoV-2 (event) Not sure [facility] Start: 04-11-2022 End: 10-04-2022 Tobacco smoking status NHIS Unknown if ever smoked [facility] Work Phone: Start: 10-27-2019 None [facility] Work Phone: Start: 06-23-2012 End: 05-23-2022 Tobacco use and exposure Smokeless tobacco non-user [facility] Start: 11-17-2024 End: 03-31-2025 History of Social function [facility] Start: 11-17-2024 End: 03-31-2025 Tobacco use panel [facility] Start: 08-23-2012 National Score (1-10 0), lower number is lower risk 72 [facility] Start: 08-30-2021 Gender identity Identifies as female gender (finding) [facility] Start: 11-16-2024 Sexual orientation Heterosexual (sai mullen) [facility] Goals Date Patient Goal Desired Activity /State Personal health goal Functional Status Date Assessment Result Facility 06-13-2014 Are you deaf, or do you have serious difficulty hearing No 06/13/2014 2:51 PM EDT Nu Salgado MA No [facility] 06-13-2014 Are you blind, or do you have serious difficulty seeing, even when wearing glasses No 06/13/2014 2:51 PM EDT Nu Salgado MA No [facility] 06-13-2014 Do you have serious difficulty walking or climbing stairs No 06/13/2014 2:51 PM EDT Nu Salgado MA No [facility] 06-13-2014 Do you have difficul ty dressing or bathing No 06/13/2014 2:51 PM EDT Nu Salgado MA No [facility] 06-13-2014 Because of a physica l, mental, or emotional condition, do you have difficulty doing errands alone such as visiting a physician's office or shopping No 06/13/2014 2:51 PM EDT Nu Salgado MA [facility] Mental Status Date Assessment Result Facility 06-13-2014 Because of a physica l, mental, or emotional condition, do you have serious difficulty concentrating, remembering, or making decisions No 06/13/2014 2:51 PM EDT Nu Salgado MA No [facility] Clinical Notes 04-28-2017 to 06-22-2025 Quick Notes - Ariela Dee MD - 06/03/2025 10:41 AM EDTPrenatal Quick Notes - Ariela Dee MD - 06/03/2025 10:41 AM EDTPatient InstructionsPatient Instructions Note Date & Type Note Facility 06-22-2025 Note HNO ID: [id number] Author: SALLY THAYER RN Service: ? Author Type: Registered Nurse Type: Progress Notes Filed: 06/22/2025 14:20 Note Text: Patient delivered via by [facility] on 06/22/25 at [facility]. See OB history. Sally Thayer RN [facility] 06-03-2025 Progress note Formatting of t his note might be different from the original. DM-Pt doing well. Denies vaginal Bleeding, Leaking fluid, or regular Contractions. Pt reports good movement Physical Exam: Gen: female in no apparent distress Abd: soft, Gravid. Non tender to palpation. See flow sheet Participation of a fellow, resident, medical student, or advanced practice provider student in performing the sensitive examination was discussed with the patient or authorized group sales representative. The patient or authorized group sales representative has agreed to proceed with the sensitive examination. @ 36 weeks Assessment & Plan Encounter for supervision of other normal in third trimester ([facility]) Orders: URINE OB DIP B/O ROUTINE, GROUP B STREPTOCOCCUS BY PCR Macrosomia of fetus affecting management of mother in third trimester, single or unspecified fetus ([facility]) Orders: URINE OB DIP B/O Uterine size-date discrepancy, third trimester ([facility]) Growth >99% has repeat at end of month Orders: URINE OB DIP B/O 36 weeks gestation of ([facility]) - Kick counts - follow up one week Vertex confirmed on ultrasound Orders: URINE OB DIP B/O Ariela Araya MD [facility] 06-03-2025 Miscellaneous Notes Formattin g of this note might be different from the original. DM-Pt doing well. Denies vaginal Bleeding, Leaking fluid, or regular Contractions. Pt reports good movement Physical Exam: Gen: female in no apparent distress Abd: soft, Gravid. Non tender to palpation. See flow sheet Participation of a fellow, resident, medical student, or advanced practice provider student in performing the sensitive examination was discussed with the patient or authorized group sales representative. The patient or authorized group sales representative has agreed to proceed with the sensitive examination. @ 36 weeks Assessment & Plan Encounter for supervision of other normal in third trimester ([facility]) Orders: URINE OB DIP B/O ROUTINE, GROUP B STREPTOCOCCUS BY PCR Macrosomia of fetus affecting management of mother in third trimester, single or unspecified fetus ([facility]) Orders: URINE OB DIP B/O Uterine size-date discrepancy, third trimester ([facility]) Growth >99% has repeat at end of month Orders: URINE OB DIP B/O 36 weeks gestation of ([facility]) - Kick counts - follow up one week Vertex confirmed on ultrasound Orders: URINE OB DIP B/O Ariela Araya MD documented in this encounter [facility] 06-03-2025 Instructions Kathy Dhaliwal MA - 06/03/2025 10:34 AM EDT SEQUENTIAL SCREENINGS The [facility] offers sequential screenings for women who are interested in screenings for chromosomal abnormalities and certain defects during a . The sequential screen combines ultrasound and blood tests to determine the risk of chromosomal abnormalities, including Down's Syndrome (Trisomy 21) and Trisomy 18, as well as open neural tube defects including spina bifida. Ultrasound examination is performed between 11 weeks and 13 weeks gestational age. Blood tests are drawn after the ultrasound and again later in the between 15 and 21 weeks gestational age. Please let your physician know if you are interested in this testing. It will require an appointment with our psychology technician. This is not an ultrasound performed by a physician in our office during a routine visit. SIGNS AND SYMPTOMS OF LABOR 1. Contractions every 10 minutes or more often 2. Clear, pink, or brownish fluid (water) leaking from vagina 3. Feeling that baby is pushing down, pressure 4. Low, dull backache 5. Cramps that feel like a period 6. Cramps with or without diarrhea If you notice any of the above symptoms, contact our office at [phone] and ask to speak with a nurse. After hours, you can call doctors registry at [phone] OR call [facility] at [phone] and ask to have the doctor diabetes education coordinator paged. If you consider this an emergency, dial [phone]- or go to your nearest emergency department. NEED HELP? Are you dealing with a violent or abusive relationship? Are you a victim of rape or sexual assult? Call [facility] ([place]) 24 hour Crisis Hotline: 470.147.6089 or 725-804-3456. MANUAL Your Guide to a Healthy manual is now on-line. Visit [email or web address] to download your free copy documented in this encounter [facility] 05-20-2025 Progress note Formatting of t his note might be different from the original. RR- VB No. LOF No. CTXS No. Movement: present. Other c/o: No. Medication list reviewed. SENSITIVE EXAM: Sensitive exam not performed. Physical Exam See Flow Sheet Abd: soft, nontender, gravid Ext: edema: Trace A/P 34w0d Estimated Date of Delivery: 07/01/25 ASSESSMENT/PLAN: 1. Encounter for supervision of other normal in third trimester ([facility]) - ICD9: V22.1, ICD10: Z34.83 (primary diagnosis) - URINE OB DIP B/O 2. 34 weeks gestation of ([facility]) - ICD9: V22.2, ICD10: Z3A.34 - URINE OB DIP B/O LGA fetus, f/u growth scan ordered- patient to schedule Joanna Amaral MD [facility] 05-20-2025 Miscellaneous Notes Formattin g of this note might be different from the original. RR- VB No. LOF No. CTXS No. Movement: present. Other c/o: No. Medication list reviewed. SENSITIVE EXAM: Sensitive exam not performed. Physical Exam See Flow Sheet Abd: soft, nontender, gravid Ext: edema: Trace A/P 34w0d Estimated Date of Delivery: 07/01/25 ASSESSMENT/PLAN: 1. Encounter for supervision of other normal in third trimester ([facility]) - ICD9: V22.1, ICD10: Z34.83 (primary diagnosis) - URINE OB DIP B/O 2. 34 weeks gestation of ([facility]) - ICD9: V22.2, ICD10: Z3A.34 - URINE OB DIP B/O LGA fetus, f/u growth scan ordered- patient to schedule Joanna Amaral MD documented in this encounter [facility] 05-20-2025 Instructions Nu Salgado MA - 05/20/2025 1:18 PM EDT SEQUENTIAL SCREENINGS The [facility] offers sequential screenings for women who are interested in screenings for chromosomal abnormalities and certain defects during a . The sequential screen combines ultrasound and blood tests to determine the risk of chromosomal abnormalities, including Down's Syndrome (Trisomy 21) and Trisomy 18, as well as open neural tube defects including spina bifida. Ultrasound examination is performed between 11 weeks and 13 weeks gestational age. Blood tests are drawn after the ultrasound and again later in the between 15 and 21 weeks gestational age. Please let your physician know if you are interested in this testing. It will require an appointment with our psychology technician. This is not an ultrasound performed by a physician in our office during a routine visit. SIGNS AND SYMPTOMS OF LABOR 1. Contractions every 10 minutes or more often 2. Clear, pink, or brownish fluid (water) leaking from vagina 3. Feeling that baby is pushing down, pressure 4. Low, dull backache 5. Cramps that feel like a period 6. Cramps with or without diarrhea If you notice any of the above symptoms, contact our office at [phone] and ask to speak with a nurse. After hours, you can call doctors registry at [phone] OR call [facility] at [phone] and ask to have the doctor diabetes education coordinator paged. If you consider this an emergency, dial 9-1-1 or go to your nearest emergency department. NEED HELP? Are you dealing with a violent or abusive relationship? Are you a victim of rape or sexual assult? Call [facility] ([place]) 24 hour Crisis Hotline: 638.254.3933 or 743-633-8888. MANUAL Your Guide to a Healthy manual is now on-line. Visit [email or web address] to download your free copy documented in this encounter [facility] 05-16-2025 Note Indication Evaluation of growth. Discrepancy between uterine size and clinical dates Impression REMOTE READ - Single, live, intrauterine . - presentation is cephalic. - The biometry is ahead of the assigned gestational dating. - The EFW is 3048 g, at the >99%. AC is at the >99%. - Amniotic fluid volume is normal amount with an MVP of 7.6 cm and IBIS of 22.3 cm. - The placenta is anterior, fundal. - No malformations visualized on a limited survey as detailed below. Recommendations - growth scan in 4 weeks - Additional follow up as clinically indicated. Maternal Assessment Height 165 cm Height (ft) 5 ft Height (in) 5 in Physical Exam Initial weight (lb) 170 lb Initial BMI 28.29 kg/m Method Transabdominal ultrasound examination Barnett . Number of fetuses: 1 Dating LMP on: 09/24/2024 GA by LMP 33 w + 3 d KOREY by LMP: 07/01/2025 GA by prior assessment 33 w + 3 d KOREY by prior assessment: 07/01/2025 Ultrasound examination on: 05/16/2025 GA by U/S based upon: AC, BPD, Femur, HC GA by U/S 36 w + 1 d KOREY by U/S: 06/12/2025 Assigned: based on stated KOREY, selected on 02/04/2025 Assigned GA 33 w + 3 d Assigned KOREY: 07/01/2025 General Evaluation Cardiac activity present. FHR 125 bpm. movements: present. Presentation: cephalic Placenta: Placental site: anterior, fundal Umbilical cord: Cord vessels: 3 vessel cord. Insertion site: normal insertion Amniotic fluid: Amount of AF: normal amount. MVP 7.6 cm. IBIS 22.3 cm. Q1 2.7 cm, Q2 4.8 cm, Q3 7.6 cm, Q4 7.2 cm Growth Overview Exam date GA BPD (mm) HC (mm) AC (mm) FL (mm) HL (mm) EFW (g) 02/04/2025 19w 0d 41 26% 161 45% 165.7 98% 29.5 69% 28 50% 339 97% 05/16/2025 33w 3d 88.6 96% 329.3 93% 343.4 >99% 65.5 75% 3048 >99% Biometry Standard BPD 88.6 mm 35w 6d 96% Hadlock OFD 117.7 mm -/- 93% Nicolaides HC 329.3 mm 36w 6d 93% Camacho AC 343.4 mm 38w 2d >99% Hadlock Femur 65.5 mm 33w 4d 75% Camacho EFW 3,048 g 37w 1d >99% Hadlock EFW (lb) 6 lb EFW (oz) 12 oz EFW by: Hadlock (HC-AC-FL) Extended Vegetable Washer 5.2 mm Extremities / Bony Struc FL / HC 0.20 Other Structures FHR 125 bpm Anatomy Lateral ventricles: normal Cavum septi pellucidi: normal Cerebellum: normal Cisterna magna: normal 4-chamber view: normal RVOT view: normal LVOT view: normal 3-vessel view: normal Heart / Thorax Situs: situs solitus (normal) Diaphragm: normal Stomach: normal Kidneys: normal Bladder: normal sex: female Wants to know sex: yes Performed By: Janneth Sequeira RDMS Read By: Evi Ramos M.D. [facility] 05-11-2025 Progress note Formatting of t his note might be different from the original. S: Nelda Biggs is a 30 year old female who presents at 32.5 weeks gestation for a routine visit. Positive movements. Denies headache, visual changes, chest pain, shortness of breath, vaginal bleeding, leakage of fluid, or dysuria. Feeling well, no complaints. O: See flow sheet Gen: No apparent distress Abd: Gravid, nontender S>D, measuring 3 weeks ahead ASSESSMENT/PLAN: 1. 32 weeks gestation of 2. Encounter for supervision of other normal in third trimester 3. Uterine size-date discrepancy, third trimester - S>D, growth US ordered - Continue vitamin - Opted out of ASA - PTL precautions reviewed and when to call office Cristina Young APRN.CNM [facility] 05-11-2025 Miscellaneous Notes Formattin g of this note might be different from the original. S: Nelda Biggs is a 30 year old female who presents at 32.5 weeks gestation for a routine visit. Positive movements. Denies headache, visual changes, chest pain, shortness of breath, vaginal bleeding, leakage of fluid, or dysuria. Feeling well, no complaints. O: See flow sheet Gen: No apparent distress Abd: Gravid, nontender S>D, measuring 3 weeks ahead ASSESSMENT/PLAN: 1. 32 weeks gestation of 2. Encounter for supervision of other normal in third trimester 3. Uterine size-date discrepancy, third trimester - S>D, growth US ordered - Continue vitamin - Opted out of ASA - PTL precautions reviewed and when to call office Cristina Young APRN.CNM documented in this encounter [facility] 05-11-2025 Instructions Quyen Moody LPN - 05/11/2025 1:11 PM EDT SEQUENTIAL SCREENINGS The [facility] offers sequential screenings for women who are interested in screenings for chromosomal abnormalities and certain defects during a . The sequential screen combines ultrasound and blood tests to determine the risk of chromosomal abnormalities, including Down's Syndrome (Trisomy 21) and Trisomy 18, as well as open neural tube defects including spina bifida. Ultrasound examination is performed between 11 weeks and 13 weeks gestational age. Blood tests are drawn after the ultrasound and again later in the between 15 and 21 weeks gestational age. Please let your physician know if you are interested in this testing. It will require an appointment with our psychology technician. This is not an ultrasound performed by a physician in our office during a routine visit. SIGNS AND SYMPTOMS OF LABOR 1. Contractions every 10 minutes or more often 2. Clear, pink, or brownish fluid (water) leaking from vagina 3. Feeling that baby is pushing down, pressure 4. Low, dull backache 5. Cramps that feel like a period 6. Cramps with or without diarrhea If you notice any of the above symptoms, contact our office at [phone] and ask to speak with a nurse. After hours, you can call doctors registry at [phone] OR call [facility] at [phone] and ask to have the doctor diabetes education coordinator paged. If you consider this an emergency, dial 9-7-5 or go to your nearest emergency department. NEED HELP? Are you dealing with a violent or abusive relationship? Are you a victim of rape or sexual assult? Call [facility] ([place]) 24 hour Crisis Hotline: 449.339.9561 or 620-530-4794. MANUAL Your Guide to a Healthy manual is now on-line. Visit [email or web address] to download your free copy documented in this encounter [facility] 04-28-2025 Note HNO ID: [id number] Author: RACHEL WAN MD Service: ? Author Type: Physician Type: Progress Notes Filed: 04/28/2025 13:18 Note Text: SW- pt doing well. No pain, vb, lof. Good FM PE: Gen- NAD, well appearing Abd- Soft, gravid, NT See flowsheet A/p 30 wk gestation - Declines Tdap - Discussed balanced diet and routine exercise - RTO 2 wks Rachel Wan DO [facility] 04-19-2025 Telephone encount er Note 3rd risk assessment form submitted 04/19/25 Bacilio Pelletier RN [facility] 04-19-2025 Miscellaneous Notes Formattin g of this note might be different from the original. 3rd risk assessment form submitted 04/19/25 Bacilio Pelletier RN documented in this encounter [facility] 04-15-2025 Progress note Formatting of t his note might be different from the original. S: Nelda iBggs is a 29 year old female who presents at 29 weeks gestation for routine visit. Positive movements. Passed 3 hour GTT. Denies headache, visual changes, chest pain, shortness of breath, vaginal bleeding, leakage of fluid, or dysuria. Feeling well, no complaints. O: See flow sheet Gen: No apparent distress Abd: Gravid, nontender S>D - measuring 2 weeks ahead-watch growth ASSESSMENT/PLAN: 1. 29 weeks gestation of 2. Encounter for supervision of other normal in third trimester - Continue vitamin daily - Opted out of ASA - Desires water - RTO 2 weeks or sooner if needed Cristina Young APRN.CNM [facility] 04-15-2025 Miscellaneous Notes Formattin g of this note might be different from the original. S: Nelda Biggs is a 29 year old female who presents at 29 weeks gestation for routine visit. Positive movements. Passed 3 hour GTT. Denies headache, visual changes, chest pain, shortness of breath, vaginal bleeding, leakage of fluid, or dysuria. Feeling well, no complaints. O: See flow sheet Gen: No apparent distress Abd: Gravid, nontender S>D - measuring 2 weeks ahead-watch growth ASSESSMENT/PLAN: 1. 29 weeks gestation of 2. Encounter for supervision of other normal in third trimester - Continue vitamin daily - Opted out of ASA - Desires water - RTO 2 weeks or sooner if needed Cristina Young APRN.CNM documented in this encounter [facility] 04-15-2025 Instructions Medina Tee MA - 04/15/2025 11:10 AM EDT SEQUENTIAL SCREENINGS The [facility] offers sequential screenings for women who are interested in screenings for chromosomal abnormalities and certain defects during a . The sequential screen combines ultrasound and blood tests to determine the risk of chromosomal abnormalities, including Down's Syndrome (Trisomy 21) and Trisomy 18, as well as open neural tube defects including spina bifida. Ultrasound examination is performed between 11 weeks and 13 weeks gestational age. Blood tests are drawn after the ultrasound and again later in the between 15 and 21 weeks gestational age. Please let your physician know if you are interested in this testing. It will require an appointment with our psychology technician. This is not an ultrasound performed by a physician in our office during a routine visit. SIGNS AND SYMPTOMS OF LABOR 1. Contractions every 10 minutes or more often 2. Clear, pink, or brownish fluid (water) leaking from vagina 3. Feeling that baby is pushing down, pressure 4. Low, dull backache 5. Cramps that feel like a period 6. Cramps with or without diarrhea If you notice any of the above symptoms, contact our office at [phone] and ask to speak with a nurse. After hours, you can call doctors registry at [phone] OR call [facility] at [phone] and ask to have the doctor diabetes education coordinator paged. If you consider this an emergency, dial 6-3-6 or go to your nearest emergency department. NEED HELP? Are you dealing with a violent or abusive relationship? Are you a victim of rape or sexual assult? Call [facility] ([place]) 24 hour Crisis Hotline: 792.764.2971 or 624-158-9985. MANUAL Your Guide to a Healthy manual is now on-line. Visit [email or web address] [email or web address] to download your free copy documented in this encounter [facility] 03-31-2025 Progress note Formatting of t his note might be different from the original. S: Nelda Biggs is a 29 year old female who presents at 26.6 weeks gestation for a routine visit. Just completed 1 hour GCT. Positive movements. Denies any N/V or acid reflux. Denies headache, visual changes, chest pain, shortness of breath, vaginal bleeding, leakage of fluid, or dysuria. Feeling well, no complaints. O: See flow sheet Gen: No apparent distress Abd: Gravid, non tender ASSESSMENT/PLAN: 1. Encounter for supervision of other normal in second trimester 2. 26 weeks gestation of - 1 hour GCT, CBC, and RPR today - Rh positive- O+ - TDAP - declines - LARC form reviewed and signed. Patient declines- vasectomy - Depression screen negative - Opioid screen negative - Continue vitamin - Opted out of ASA - plan form discussed and given to patient. Patient desires unmedicated - Water - PTL precautions and kick counts reviewed - RTO- 2 weeks or sooner if needed . Cristina Young APRN.CNM [facility] 03-31-2025 Miscellaneous Notes Formattin g of this note might be different from the original. S: Nelda Biggs is a 29 year old female who presents at 26.6 weeks gestation for a routine visit. Just completed 1 hour GCT. Positive movements. Denies any N/V or acid reflux. Denies headache, visual changes, chest pain, shortness of breath, vaginal bleeding, leakage of fluid, or dysuria. Feeling well, no complaints. O: See flow sheet Gen: No apparent distress Abd: Gravid, non tender ASSESSMENT/PLAN: 1. Encounter for supervision of other normal in second trimester 2. 26 weeks gestation of - 1 hour GCT, CBC, and RPR today - Rh positive- O+ - TDAP - declines - LARC form reviewed and signed. Patient declines- vasectomy - Depression screen negative - Opioid screen negative - Continue vitamin - Opted out of ASA - plan form discussed and given to patient. Patient desires unmedicated - Water - PTL precautions and kick counts reviewed - RTO- 2 weeks or sooner if needed . Cristina Young APRN.CNM documented in this encounter [facility] 03-31-2025 Morgan Ny MA - 03/31/2025 8:50 AM EDT SEQUENTIAL SCREENINGS The [facility] offers sequential screenings for women who are interested in screenings for chromosomal abnormalities and certain defects during a . The sequential screen combines ultrasound and blood tests to determine the risk of chromosomal abnormalities, including Down's Syndrome (Trisomy 21) and Trisomy 18, as well as open neural tube defects including spina bifida. Ultrasound examination is performed between 11 weeks and 13 weeks gestational age. Blood tests are drawn after the ultrasound and again later in the between 15 and 21 weeks gestational age. Please let your physician know if you are interested in this testing. It will require an appointment with our psychology technician. This is not an ultrasound performed by a physician in our office during a routine visit. SIGNS AND SYMPTOMS OF LABOR 1. Contractions every 10 minutes or more often 2. Clear, pink, or brownish fluid (water) leaking from vagina 3. Feeling that baby is pushing down, pressure 4. Low, dull backache 5. Cramps that feel like a period 6. Cramps with or without diarrhea If you notice any of the above symptoms, contact our office at [phone] and ask to speak with a nurse. After hours, you can call doctors registry at [phone] OR call [facility] at [phone] and ask to have the doctor diabetes education coordinator paged. If you consider this an emergency, dial 91-4 or go to your nearest emergency department. NEED HELP? Are you dealing with a violent or abusive relationship? Are you a victim of rape or sexual assult? Call [facility] ([place]) 24 hour Crisis Hotline: 466.166.8267 or 839-303-0724. MANUAL Your Guide to a Healthy manual is now on-line. Visit [email or web address] to download your free copy documented in this encounter [facility] 03-07-2025 Telephone encount er Note 2nd risk assessment form submitted 03/07/25 Bacilio Pelletier RN [facility] 03-07-2025 Miscellaneous Notes Formattin g of this note might be different from the original. 2nd risk assessment form submitted 03/07/25 Bacilio Pelletier RN documented in this encounter [facility] 03-04-2025 Miscellaneous Notes Formattin g of this note might be different from the original. EH - S: Nelda is a 29 year old female who presents at 23w0d for a routine visit. Feeling movement. Denies headache, visual changes, chest pain, shortness of breath, vaginal bleeding, leakage of fluid, or dysuria. Feeling well, no complaints. O: See flow sheet Gen: No apparent distress Abd: Gravid, nontender, S>D ASSESSMENT/PLAN: 1. Encounter for supervision of other normal in second trimester ([facility]) - ICD9: V22.1, ICD10: Z34.82 (primary diagnosis) - Continue PNV 2. 23 weeks gestation of ([facility]) - ICD9: V22.2, ICD10: Z3A.23 - GTT, CBC, RPR next visit - Anatomy ultrasound reviewed, EFW 97% PTL precautions reviewed. RTO in 4 weeks or sooner as needed. Bautista Lay APRN.ANIMAL HUSBANDRY PROFESSOR documented in this encounter [facility] 03-04-2025 Progress note Formatting of t his note might be different from the original. EH - S: Nelda is a 29 year old female who presents at 23w0d for a routine visit. Feeling movement. Denies headache, visual changes, chest pain, shortness of breath, vaginal bleeding, leakage of fluid, or dysuria. Feeling well, no complaints. O: See flow sheet Gen: No apparent distress Abd: Gravid, nontender, S>D ASSESSMENT/PLAN: 1. Encounter for supervision of other normal in second trimester ([facility]) - ICD9: V22.1, ICD10: Z34.82 (primary diagnosis) - Continue PNV 2. 23 weeks gestation of ([facility]) - ICD9: V22.2, ICD10: Z3A.23 - GTT, CBC, RPR next visit - Anatomy ultrasound reviewed, EFW 97% PTL precautions reviewed. RTO in 4 weeks or sooner as needed. Bautista Lay APRN.ANIMAL HUSBANDRY PROFESSOR [facility] 03-04-2025 Instructions Bautista Lay APRN.CNP - 03/04/2025 8:42 AM EDT The Fresh Test is an alternative option to the standard glucola drink used for screening of gestational diabetes. The [employer] offers a line of diagnostic 50-gram, 75-gram and 100-gram glucose beverages. The [employer] glucose beverages are additive-free and made with just three high-quality ingredients: Organic Glucose, Crystallized Lemon and Organic Mint. Our products are labeled as Diagnostic Class II Medical Devices ensuring exact equivalency to predicate glucose beverages. FDA [id number]. The [employer] Test products are not only clean (non-GMO, gluten free, artificial flavoring free, dye free, BPA free and preservative free) but also delicious. Nearly 100% of women enjoy the taste, greatly improving the patient experience. The Fresh Test has two product lines that are protected with [facility] Provisional Patents. A Glucose Powder Line - meant to be reconstituted with 10 ounces of water and a Glucose Beverage Line - relaunching in 2022. Please visit our Clinical Articles & Resources tab for Instructions For Use, Vendor Packets and Equivalency Certificates of Analysis, or reach out to [email or web address] If you would like to use this option, please go to [employer] and order your drink. You should bring it to the lab and notify them that you will be completing the test with The [employer] drink. SEQUENTIAL SCREENINGS The [facility] offers sequential screenings for women who are interested in screenings for chromosomal abnormalities and certain defects during a . The sequential screen combines ultrasound and blood tests to determine the risk of chromosomal abnormalities, including Down's Syndrome (Trisomy 21) and Trisomy 18, as well as open neural tube defects including spina bifida. Ultrasound examination is performed between 11 weeks and 13 weeks gestational age. Blood tests are drawn after the ultrasound and again later in the between 15 and 21 weeks gestational age. Please let your physician know if you are interested in this testing. It will require an appointment with our psychology technician. This is not an ultrasound performed by a physician in our office during a routine visit. SIGNS AND SYMPTOMS OF LABOR 1. Contractions every 10 minutes or more often 2. Clear, pink, or brownish fluid (water) leaking from vagina 3. Feeling that baby is pushing down, pressure 4. Low, dull backache 5. Cramps that feel like a period 6. Cramps with or without diarrhea If you notice any of the above symptoms, contact our office at [phone] and ask to speak with a nurse. After hours, you can call doctors registry at [phone] OR call [facility] at [phone] and ask to have the doctor diabetes education coordinator paged. If you consider this an emergency, dial 9-1-6 or go to your nearest emergency department. NEED HELP? Are you dealing with a violent or abusive relationship? Are you a victim of rape or sexual assult? Call [facility] ([place]) 24 hour Crisis Hotline: 704.688.9712 or 282-504-2131. MANUAL Your Guide to a Healthy manual is now on-line. Visit [email or web address] to download your free copy documented in this encounter [facility] 02-04-2025 Progress note Formatting of t his note might be different from the original. S: Nelda Biggs is a 29 year old female who presents at 07/01/2025, by Last Menstrual Period for a routine visit. Denies headache, visual changes, chest pain, shortness of breath, vaginal bleeding, leakage of fluid, or dysuria. Feeling well, no complaints. Starting to feel good movement O: See flow sheet Gen: No apparent distress Abd: Gravid, nontender Anatomy US complete. Prelim normal ASSESSMENT/PLAN: 1. Encounter for supervision of other normal in second trimester ([facility]) - ICD9: V22.1, ICD10: Z34.82 (primary diagnosis) 2. 19 weeks gestation of ([facility]) - ICD9: V22.2, ICD10: Z3A.19 Sonya Garcia MD [facility] 02-04-2025 Miscellaneous Notes Formattin g of this note might be different from the original. S: Nelda Biggs is a 29 year old female who presents at 07/01/2025, by Last Menstrual Period for a routine visit. Denies headache, visual changes, chest pain, shortness of breath, vaginal bleeding, leakage of fluid, or dysuria. Feeling well, no complaints. Starting to feel good movement O: See flow sheet Gen: No apparent distress Abd: Gravid, nontender Anatomy US complete. Prelim normal ASSESSMENT/PLAN: 1. Encounter for supervision of other normal in second trimester ([facility]) - ICD9: V22.1, ICD10: Z34.82 (primary diagnosis) 2. 19 weeks gestation of ([facility]) - ICD9: V22.2, ICD10: Z3A.19 Sonya Garcia MD documented in this encounter [facility] 02-04-2025 Instructions Kathy Dhaliwal MA - 02/04/2025 10:21 AM EDT SEQUENTIAL SCREENINGS The [facility] offers sequential screenings for women who are interested in screenings for chromosomal abnormalities and certain defects during a . The sequential screen combines ultrasound and blood tests to determine the risk of chromosomal abnormalities, including Down's Syndrome (Trisomy 21) and Trisomy 18, as well as open neural tube defects including spina bifida. Ultrasound examination is performed between 11 weeks and 13 weeks gestational age. Blood tests are drawn after the ultrasound and again later in the between 15 and 21 weeks gestational age. Please let your physician know if you are interested in this testing. It will require an appointment with our psychology technician. This is not an ultrasound performed by a physician in our office during a routine visit. SIGNS AND SYMPTOMS OF LABOR 1. Contractions every 10 minutes or more often 2. Clear, pink, or brownish fluid (water) leaking from vagina 3. Feeling that baby is pushing down, pressure 4. Low, dull backache 5. Cramps that feel like a period 6. Cramps with or without diarrhea If you notice any of the above symptoms, contact our office at [phone] and ask to speak with a nurse. After hours, you can call [facility] at [phone] OR call [facility] at [phone] and ask to have the doctor diabetes education coordinator paged. If you consider this an emergency, dial 9-1-0 or go to your nearest emergency department. NEED HELP? Are you dealing with a violent or abusive relationship? Are you a victim of rape or sexual assult? Call [facility] ([place]) 24 hour Crisis Hotline: 163.290.4295 or 315-307-9318. MANUAL Your Guide to a Healthy manual is now on-line. Visit [email or web address] to download your free copy documented in this encounter [facility] 01-07-2025 Note HNO ID: [id number] Author: BAUTISTA LAY APRN.ANIMAL HUSBANDRY PROFESSOR Service: ? Author Type: Nurse Practitioner Type: Progress Notes Filed: 01/07/2025 09:09 Note Text: EH - S: Nelda is a 29 year old female who presents at 15w0d for a routine visit. Denies headache, visual changes, chest pain, shortness of breath, vaginal bleeding, leakage of fluid, or dysuria. Feeling well, no complaints. O: See flow sheet Gen: No apparent distress Abd: Gravid, nontender ASSESSMENT/PLAN: 1. Encounter for supervision of other normal in second trimester ([facility]) - ICD9: V22.1, ICD10: Z34.82 (primary diagnosis) - Continue PNV - Declined ASA 2. 15 weeks gestation of ([facility]) - ICD9: V22.2, ICD10: Z3A.15 - [id number] low risk - Anatomy ultrasound next visit PTL precautions reviewed. RTO in 4 weeks or sooner as needed. Bautista Lay APRN.ANIMAL HUSBANDRY PROFESSOR [facility] 01-07-2025 History of Presen t illness Narrative EH - S: Nelda is a 29 year old female who presents at 15w0d for a routine visit. Denies headache, visual changes, chest pain, shortness of breath, vaginal bleeding, leakage of fluid, or dysuria. Feeling well, no complaints. O: See flow sheet Gen: No apparent distress Abd: Gravid, nontender ASSESSMENT/PLAN: 1. Encounter for supervision of other normal in second trimester ([facility]) - ICD9: V22.1, ICD10: Z34.82 (primary diagnosis) - Continue PNV - Declined ASA 2. 15 weeks gestation of ([facility]) - ICD9: V22.2, ICD10: Z3A.15 - [id number] low risk - Anatomy ultrasound next visit PTL precautions reviewed. RTO in 4 weeks or sooner as needed. Bautista Lay APRN.ANIMAL HUSBANDRY PROFESSOR documented in this encounter [facility] 01-07-2025 Instructions Kathy Dhaliwal MA - 01/07/2025 8:54 AM EDT SEQUENTIAL SCREENINGS The [facility] offers sequential screenings for women who are interested in screenings for chromosomal abnormalities and certain defects during a . The sequential screen combines ultrasound and blood tests to determine the risk of chromosomal abnormalities, including Down's Syndrome (Trisomy 21) and Trisomy 18, as well as open neural tube defects including spina bifida. Ultrasound examination is performed between 11 weeks and 13 weeks gestational age. Blood tests are drawn after the ultrasound and again later in the between 15 and 21 weeks gestational age. Please let your physician know if you are interested in this testing. It will require an appointment with our psychology technician. This is not an ultrasound performed by a physician in our office during a routine visit. SIGNS AND SYMPTOMS OF LABOR 1. Contractions every 10 minutes or more often 2. Clear, pink, or brownish fluid (water) leaking from vagina 3. Feeling that baby is pushing down, pressure 4. Low, dull backache 5. Cramps that feel like a period 6. Cramps with or without diarrhea If you notice any of the above symptoms, contact our office at [phone] and ask to speak with a nurse. After hours, you can call doctors registry at [phone] OR call [facility] at [phone] and ask to have the doctor diabetes education coordinator paged. If you consider this an emergency, dial 9--1 or go to your nearest emergency department. NEED HELP? Are you dealing with a violent or abusive relationship? Are you a victim of rape or sexual assult? Call [facility] ([place]) 24 hour Crisis Hotline: 791.159.2924 or 005-467-0660. MANUAL Your Guide to a Healthy manual is now on-line. Visit [email or web address] to download your free copy documented in this encounter [facility] 12-21-2024 Telephone encount er Note Patient 12w4d requesting NIPT testing. Last seen in office on 12/14/24. Kavitha Ryan RN [facility] 12-21-2024 Miscellaneous Notes Formattin g of this note might be different from the original. Patient 12w4d requesting NIPT testing. Last seen in office on 12/14/24. Kavitha Ryan RN documented in this encounter [facility] 12-15-2024 Telephone encount er Note Spoke with [employer]. Patient needs rescheduled. She will be too soon for her anatomy. Please call patient and schedule her anatomy and OB visit approximately 4 weeks after her 01/07 ob visit. Thank you. Sonya Mireles RN [facility] 12-15-2024 Miscellaneous Notes Formattin g of this note might be different from the original. Spoke with [employer]. Patient needs rescheduled. She will be too soon for her anatomy. Please call patient and schedule her anatomy and OB visit approximately 4 weeks after her 01/07 ob visit. Thank you. Sonya Mireles RN Patient calling in asking if her anatomy scan appointment on 01/25 is scheduled for an an appropriate time since she will be a two days shy of 18 weeks. Please review and advise if this needs adjusted or not. Bryan Garber December 15, 2024 3:12 PM documented in this encounter [facility] 12-15-2024 Telephone encount er Note Patient calling in asking if her anatomy scan appointment on 01/25 is scheduled for an an appropriate time since she will be a two days shy of 18 weeks. Please review and advise if this needs adjusted or not. Bryan Ryan Garber December 15, 2024 3:12 PM [facility] 12-15-2024 Progress note Formatting of t his note might be different from the original. Anatomy ultrasound reviewed. No abnormalities identified. Follow up as clinically indicated. Please place copy in ob chart. Joanna Amaral MD [facility] Work Phone: 12-15-2024 Miscellaneous Notes Formattin g of this note might be different from the original. Anatomy ultrasound reviewed. No abnormalities identified. Follow up as clinically indicated. Please place copy in ob chart. Joanna Amaral MD Send letter about normal pap if she does not have mychart. Joanna Amaral MD documented in this encounter [facility] 12-14-2024 Progress note Formatting of t his note might be different from the original. S: Nelda Biggs is a 29 year old female who presents at 07/01/2025, by Last Menstrual Period for a routine visit. Denies headache, visual changes, chest pain, shortness of breath, vaginal bleeding, leakage of fluid, or dysuria. Feeling well, no complaints. O: See flow sheet Gen: No apparent distress NT completed today No N/V. Declined NIPT ASSESSMENT/PLAN: 1. Encounter for supervision of other normal in first trimester - ICD9: V22.1, ICD10: Z34.81 (primary diagnosis) 2. 11 weeks gestation of - ICD9: V22.2, ICD10: Z3A.11 Sonya Garcia MD [facility] 12-14-2024 Miscellaneous Notes Formattin g of this note might be different from the original. S: Nelda Biggs is a 29 year old female who presents at 07/01/2025, by Last Menstrual Period for a routine visit. Denies headache, visual changes, chest pain, shortness of breath, vaginal bleeding, leakage of fluid, or dysuria. Feeling well, no complaints. O: See flow sheet Gen: No apparent distress NT completed today No N/V. Declined NIPT ASSESSMENT/PLAN: 1. Encounter for supervision of other normal in first trimester - ICD9: V22.1, ICD10: Z34.81 (primary diagnosis) 2. 11 weeks gestation of - ICD9: V22.2, ICD10: Z3A.11 Sonya Garcia MD documented in this encounter [facility] 12-14-2024 Instructions Marybeth Harding MA - 12/14/2024 1:54 PM EDT SEQUENTIAL SCREENINGS The [facility] offers sequential screenings for women who are interested in screenings for chromosomal abnormalities and certain defects during a . The sequential screen combines ultrasound and blood tests to determine the risk of chromosomal abnormalities, including Down's Syndrome (Trisomy 21) and Trisomy 18, as well as open neural tube defects including spina bifida. Ultrasound examination is performed between 11 weeks and 13 weeks gestational age. Blood tests are drawn after the ultrasound and again later in the between 15 and 21 weeks gestational age. Please let your physician know if you are interested in this testing. It will require an appointment with our psychology technician. This is not an ultrasound performed by a physician in our office during a routine visit. SIGNS AND SYMPTOMS OF LABOR 1. Contractions every 10 minutes or more often 2. Clear, pink, or brownish fluid (water) leaking from vagina 3. Feeling that baby is pushing down, pressure 4. Low, dull backache 5. Cramps that feel like a period 6. Cramps with or without diarrhea If you notice any of the above symptoms, contact our office at [phone] and ask to speak with a nurse. After hours, you can call doctors registry at [phone] OR call [facility] at [phone] and ask to have the doctor diabetes education coordinator paged. If you consider this an emergency, dial 9-1-4 or go to your nearest emergency department. NEED HELP? Are you dealing with a violent or abusive relationship? Are you a victim of rape or sexual assult? Call [facility] ([place]) 24 hour Crisis Hotline: 751.716.5168 or 596-390-0403. MANUAL Your Guide to a Healthy manual is now on-line. Visit [email or web address] to download your free copy documented in this encounter [facility] 11-25-2024 Progress note Formatting of t his note might be different from the original. Send letter about normal pap if she does not have mychart. Joanna Amaral MD [facility] 11-18-2024 Telephone encount er Note 1st risk assessment form submitted 11/18/2024. Sonya Albarado, RAZIA [facility] 11-18-2024 Miscellaneous Notes Formattin g of this note might be different from the original. 1st risk assessment form submitted 11/18/2024. Sonya Albarado, RAZIA documented in this encounter [facility] 11-17-2024 Progress note Formatting of t his note might be different from the original. RICARDA-NOB visit today. See progress note. Declines NIPT. PN labs ordered. First trimester anatomy US at 12wk. Wen Guadarrama APRN.CNM [facility] 11-17-2024 Miscellaneous Notes Formattin g of this note might be different from the original. RICARDA-NOB visit today. See progress note. Declines NIPT. PN labs ordered. First trimester anatomy US at 12wk. Wen Guadarrama APRN.CNM documented in this encounter [facility] 11-16-2024 Note HNO ID: [id number] Author: WEN GUADARRAMA APRN.CNM Service: ? Author Type: Trench Pipe Layer Helper Type: Progress Notes Filed: 11/17/2024 13:56 Note Text: Safety Attendant offered: Patient declines. INITIAL OB ASSESSMENT HPI: Nelda is a 29 year old White Female here to establish Obstetrical Care. Patient's last menstrual period was 09/24/2024. from OB Dating Form. was planned Complaints: No OB History Gravida4 Para3 Term3 Preterm0 AB0 Living3 SAB0 IAB0 Ectopic0 Multiple0 Live Births3 Previous history: Prior : No History of 4th degree laceration: No History of shoulder dystocia: No History of Hypertensive disorders including pre-eclampsia or gestational hypertension: No History of gestational diabetes: No Patient's Risk Screening for delivery: Have you had a prior barnett between 20w and 36w6d? No How many pregnancies have you had before? 3 Did you have a previous baby with a GBS Infection? No Please select all that apply for any prior : N/A MEDICAL/PSYCHOSOCIAL HISTORY: History of hemorrhage or bleeding concerns: No Thyroid Disease: No History of chronic hypertension: No History of pre-existing diabetes: No ABO/RH(D) Date Value Ref Range Status 09/07/2021 O POSITIVE Final BMI 29.18 kg/(m2) Last Pap: 06/03/2022 History of abnormal pap: No Prior treatment for cervical dysplasia: none. Last HPV: History of STDs: N/A Partner History of STDs: None Did you have a partner with Herpes? No Tobacco use: No E-Cigarette/Vaping Use: No Caffeine use: No Drug use: No Alcohol use: No Multivitamin with Folic acid: Yes Would refuse blood transfusion if medically necessary: No Social Needs: How often does this describe you? I don't have enough money to pay my bills: Never Within the past 12 months, have you worried that your food would run out before you had money to buy more? Never In the past 12 months, has lack of reliable transportation kept you from going to medical appointments or work, or from getting things needed for daily living? Never In the past 12 months, have you had any concerns about having a place to live, or about the condition or quality of your housing? Never Would you like more information on any of the following (please check all that apply)? Not interested Social History: Do you have any history of depression, anxiety, PTSD, or other mood problems? No Do you have a history of abuse or trauma that may impact your experience? No Are you currently employed? No Depression/Anxiety Screening: denies symptoms of depression. OB Depression and Anxiety Screening- This Encounter (since 11/16/2024) Over the past 2 weeks have you felt down, depressed, or hopeless? Negative Over the past two weeks, have you felt little interest or pleasure in doing things?? Negative Feeling nervous, anxious or on edge 0-Not at all Not being able to stop or control worrying 0-Not al all Anxiety Pre-Screening Total (If >/= 3 additional questions will be reviewed) 0 Genetic Screening: Partner present: No Patient verbalized knowledge of partner family health history: Yes Do you or your partner have any personal or family history of defects not previously discussed: No Do you have history of a complicated by anomaly, genetic condition, or demise: No Preeclampsia Risk Screening: Screening for prevention of preeclampsia: High risk factors: None Moderate risk ractors: None OB Risk Screening: Completed, no positive findings documented. 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 fibroadenoma left breast Infertility, female PMH - PAST MEDICAL HISTORY OF color vision normal Urinary tract infection, site not specified had history of chronic urinary tract infection. Wrist fracture, left PAST SURGICAL HISTORY Procedure Laterality Date NONE Current Outpatient Medications Medication Sig Dispense Refill PNV no.95/ferrous fum/folic ac ( ORAL) Take by mouth. No current facility-administered medications for this visit. Allergies As of Date: 11/17/2024 (No Known Allergies) Fully Assessed 11/16/2024 Does patient have penicillin allergy: No REVIEW OF SYSTEMS: GENERAL: Negative for: Fever or Chills HEENT: Negative for: Headache, Impaired Vision, Ringing in Ears, Nosebleeds NECK: Negative for: Swelling, Pain, Stiffness RESPIRATORY: Negative for: Cough, Shortness of breath, Wheezing GASTROINTESTINAL: Negative for: Heartburn, Constipation, Diarrhea, Blood in stool, Vomiting MUSCULOSKELETAL: Negative for: Muscle or joint pain, stiffness, Joint swelling NEUROLOGIC/PSYCHIATRIC: Negative for: Weakness, Paralysis, Numbness, Tingling, Tremor, Anxiety, Depression, Memory loss SKIN: Ne (more content not included)... [facility] 11-16-2024 History of Presen t illness Narrative Safety Attendant offered: Patient declines. INITIAL OB ASSESSMENT HPI: Nelda is a 29 year old White Female here to establish Obstetrical Care. Patient's last menstrual period was 09/24/2024. from OB Dating Form. was planned Complaints: No OB History Gravida4 Para3 Term3 Preterm0 AB0 Living3 SAB0 IAB0 Ectopic0 Multiple0 Live Births3 Previous history: Prior : No History of 4th degree laceration: No History of shoulder dystocia: No History of Hypertensive disorders including pre-eclampsia or gestational hypertension: No History of gestational diabetes: No Patient's Risk Screening for delivery: Have you had a prior barnett between 20w and 36w6d? No How many pregnancies have you had before? 3 Did you have a previous baby with a GBS Infection? No Please select all that apply for any prior : N/A MEDICAL/PSYCHOSOCIAL HISTORY: History of hemorrhage or bleeding concerns: No Thyroid Disease: No History of chronic hypertension: No History of pre-existing diabetes: No ABO/RH(D) Date Value Ref Range Status 09/07/2021 O POSITIVE Final BMI 29.18 kg/(m^2) Last Pap: 06/03/2022 History of abnormal pap: No Prior treatment for cervical dysplasia: none. Last HPV: History of STDs: N/A Partner History of STDs: None Did you have a partner with Herpes? No Tobacco use: No E-Cigarette/Vaping Use: No Caffeine use: No Drug use: No Alcohol use: No Multivitamin with Folic acid: Yes Would refuse blood transfusion if medically necessary: No Social Needs: How often does this describe you? I don't have enough money to pay my bills: Never Within the past 12 months, have you worried that your food would run out before you had money to buy more? Never In the past 12 months, has lack of reliable transportation kept you from going to medical appointments or work, or from getting things needed for daily living? Never In the past 12 months, have you had any concerns about having a place to live, or about the condition or quality of your housing? Never Would you like more information on any of the following (please check all that apply)? Not interested Social History: Do you have any history of depression, anxiety, PTSD, or other mood problems? No Do you have a history of abuse or trauma that may impact your experience? No Are you currently employed? No Depression/Anxiety Screening: denies symptoms of depression. OB Depression and Anxiety Screening- This Encounter (since 11/16/2024) Over the past 2 weeks have you felt down, depressed, or hopeless? Negative Over the past two weeks, have you felt little interest or pleasure in doing things? Negative Feeling nervous, anxious or on edge 0-Not at all Not being able to stop or control worrying 0-Not al all Anxiety Pre-Screening Total (If >/= 3 additional questions will be reviewed) 0 Genetic Screening: Partner present: No Patient verbalized knowledge of partner family health history: Yes Do you or your partner have any personal or family history of defects not previously discussed: No Do you have history of a complicated by anomaly, genetic condition, or demise: No Preeclampsia Risk Screening: Screening for prevention of preeclampsia: High risk factors: None Moderate risk ractors: None OB Risk Screening: Completed, no positive findings documented. 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 fibroadenoma left breast Infertility, female PMH - PAST MEDICAL HISTORY OF color vision normal Urinary tract infection, site not specified had history of chronic urinary tract infection. Wrist fracture, left PAST SURGICAL HISTORY Procedure Laterality Date NONE Current Outpatient Medications Medication Sig Dispense Refill PNV no.95/ferrous fum/folic ac ( ORAL) Take by mouth. No current facility-administered medications for this visit. Allergies As of Date: 11/17/2024 (No Known Allergies) Fully Assessed 11/16/2024 Does patient have penicillin allergy: No REVIEW OF SYSTEMS: GENERAL: Negative for: Fever or Chills HEENT: Negative for: Headache, Impaired Vision, Ringing in Ears, Nosebleeds NECK: Negative for: Swelling, Pain, Stiffness RESPIRATORY: Negative for: Cough, Shortness of breath, Wheezing GASTROINTESTINAL: Negative for: Heartburn, Constipation, Diarrhea, Blood in stool, Vomiting MUSCULOSKELETAL: Negative for: Muscle or joint pain, stiffness, Joint swelling NEUROLOGIC/PSYCHIATRIC: Negative for: Weakness, Paralysis, Numbness, Tingling, Tremor, Anxiety, Depression, Memory loss SKIN: Negative for: Rash, Itching GENITOURINARY: Negative for: vaginal itching, vaginal discharge, hematuria or dysuria SENSITIVE EXAM: The sensitive examination was discussed with the Patient or Patient's Authorized Director Digital Sales. As applicable, any other physician, advance practice provider, medical student, or other health professional student that will be observing or involved in the sensitive examination for educational or training purposes was discussed with the Patient or Authorized Director Digital Sales. The Patient or Authorized Director Digital Sales has agreed to proceed with the sensitive examination. (Sensitive examination includes inspection and/or palpation of the breasts, pelvis, prostate and anorectal regions). PHYSICAL EXAM: BP 100/68 Ht 5' 4 (1.63m) Wt 170 lb (77.1kg) LMP 09/24/2024 BMI 29.17 kg/(m^2). GENERAL: pleasant in no apparent distress DERMATOLOGY: Normal, without lesions, non-icteric, and non-hirsute NECK: Supple, full range of motion, no adenopathy, and thyroid normal CHEST: Normal inspiratory effort BREAST: soft, non-tender, symmetric, no dominant mass, normal nipple-areolar complex, no lymphadenopathy, and no nipple discharge ABDOMEN: soft, non-tender, and no masses NEURO: alert and oriented x3,exam grossly non-focal PELVIS: External genitalia normal without lesions. Perineal body intact. No vaginal or cervical lesions. Cervix closed. Uterus 8 week size. No adnexal masses or tenderness. Clinical Pelvimetry: Pelvimetry clinically assessed as adequate Limited OB ultrasound exam: single intrauterine , positive cardiac activity, crown-rump length 7w5d, and normal bilateral adnexa Dating LMP on: 09/24/2024 GA by LMP 7 w + 5 d KOREY by LMP: 07/01/2025 Ultrasound examination on: 11/17/2024 GA by U/S based upon: CRL GA by U/S 7 w + 4 d KOREY by U/S: 07/02/2025 Assigned: based on the LMP, selected on 11/17/2024 Assigned GA 7 w + 5 d Assigned KOREY: 07/01/2025 ASSESSMENT: 29 year old at 7w5d wks gestational age PLAN: 1) Patient oriented to practice. Patient given new OB orientation folder. Discussed nutrition, folic acid supplementation, dietary guidelines, exercise, smoking, alcohol, caffeine, and drug use. Discussed gestational weight gain guidelines. Discussed routine OB labs including STD/HIV. Discussed how to access Your guide to a health and the Personal Carer. Discussed hemoglobin electrophoresis. Patient: Accepts 2) Screening: Hemoglobin A1C: ordered Baby Aspirin: The patient has been counseled about the potential benefits of low dose aspirin in and our recommendation that this be offered to all patients, regardless of whether they meet the high risk criteria specified above. She Accepts Aneuploidy Screening: Discussed aneuploidy screening, nuchal translucency/first trimester early anatomy ultrasound and NIPT. The risks/benefits and limitations of NIPT/aneuploidy screening were reviewed including the potential for false negative and false positive results. The availability of genetic counseling was reviewed. Information on aneuploidy screening was provided. The patient declines screening Myriad Carrier Screening: Discussed myriad carrier screening. We discussed the availability of professional-society guided carrier screening and reviewed the conditions screened and limitations of screening. The availability of genetic counseling was reviewed. Information on carrier screening was provided. The patient Declines 3) Patient offered option of Virtual Visits. Patient prefers in person visits. Follow up in 4 weeks or sooner prn. Wen Guadarrama APRN.CNM documented in this encounter [facility] 11-16-2024 Instructions Medina Tee MA - 11/16/2024 11:48 AM EST Please select the following link to access the [facility] Your Guide to a Healthy . [email or web address] Please select the following link to access the [facility] Your Guide to a Healthy . [email or web address] documented in this encounter [facility] 05-23-2022 History of Presen t illness Narrative VISIT Nelda Biggs is a 27 year old year old here for visit. Delivery Summary: ROS/ Recovery: Feeding: Breast feeding problems: None Menses since delivery: none Menstrual pattern prior to : Regular periods [place] since delivery: Not resumed Depression: denies symptoms of depression. OB Depression and Anxiety Screening- This Encounter (since 05/22/2022) Over the past 2 weeks have you felt down, depressed, or hopeless? Negative Over the past two weeks, have you felt little interest or pleasure in doing things? Negative Feeling nervous, anxious or on edge 0-Not at all Not being able to stop or control worrying 0-Not al all Anxiety Pre-Screening Total (If >/= 3 additional questions will be reviewed) 0 Emotional support: Yes Bowel symptoms: Negative for abdominal discomfort, blood in stools or black stools and change in bowel habits Abdomen: N/A Bladder symptoms: No dysuria, gross hematuria, urinary frequency, urinary urgency, or incontinence Other issues: None Last Pap: 2019 normal HPV: N/A PAST MEDICAL HISTORY Diagnosis Date Acne Concussion, unspecified at age 4year. fibroadenoma left breast Infertility, female PMH - PAST MEDICAL HISTORY OF color vision normal Urinary tract infection, site not specified had history of chronic urinary tract infection. Wrist fracture, left PAST SURGICAL HISTORY Procedure Laterality Date NONE FAMILY HISTORY Problem Relation Age of Onset No Known Problems Mother No Known Problems Father No Known Problems Sister No Known Problems Brother No Known Problems Brother Hypertension Maternal Grandmother other (kidney stones) Maternal Grandmother Psychiatry Maternal Grandfather Depression Blood Disease Maternal Grandfather Prostate Cancer Maternal Grandfather Cancer Paternal Grandmother Ovarian Hypertension Paternal Grandfather No Known Problems Son No Known Problems Daughter Social History Tobacco Use Smoking status: Never Smokeless tobacco: Never Vaping Use Vaping Use: Never used Substance Use Topics Alcohol use: No Drug use: No PHYSICAL EXAMINATION: BP 110/60 Wt 157 lb (71.2kg) LMP 07/13/2021 GENERAL: pleasant, female in no apparent distress HEENT: Normocephalic, atraumatic, mucus membranes moist, and no lesions NECK: Supple, full range of motion, no adenopathy, and thyroid normal DERMATOLOGY: Normal, without lesions, non-icteric, and non-hirsute BREAST: soft, non-tender, symmetric, normal nipple-areolar complex, no lymphadenopathy, no nipple discharge, and known fibroadenoma left at 4;00 ABDOMEN: soft, non-tender, and no masses. INCISION: N/A PELVIC: external genitalia normal, normal Bartholin's glands, urethra, [place]'s glands, no vulvar lesions, no cervical lesions, good vaginal support, physiologic discharge present, normal appearing perineal body and perianal region BIMANUAL: uterus normal size, shape and consistency, no adnexal masses, and non-tender NEURO: alert and oriented x3,exam grossly non-focal EXTREMITIES: normal ASSESSMENT AND PLAN: 27 year old status post with normal course. Contraception plan: condoms Follow up: RTC for annual exams and PRN Pap today Ariela Araya MD documented in this encounter [facility] 05-15-2022 History of Presen t illness Narrative Nelda Biggs is a 27 year old female who presents for problem visit of right breast pain. HPI: on 04/11/22. Patient is 5 weeks and exclusively infant. Today noticed upper area on right breast is sore to touch. Unsure if has clogged duct or mastitis. No redness to breast and continues to nurse infant on right side. She took temperature today and it was 100.8 F. Took Tylenol and continues to increase fluid intake. Denies feeling malaise or body aches. 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 No abdominal pain, nausea, vomiting, diarrhea, or constipation. Bladder: No dysuria, gross hematuria, urinary frequency, urinary urgency, or incontinence. Breast: Breast lump(s) noted and pain to right breast- currently . Expanded ROS: N/A Allergies and current medication updated:Yes EXAM: BP 102/66 Temp 100.8 Wt 157 lb (71.2kg) LMP 07/13/2021 GENERAL: pleasant, female in no apparent distress HEENT: Normocephalic and atraumatic NECK: Supple and full range of motion DERMATOLOGY: Normal and without lesions BREAST: soft, symmetric, normal nipple-areolar complex, no lymphadenopathy, no nipple discharge. Right breast with palpable mass 2-3 cm area to upper area. Minimal tenderness with palpation to area. No redness. ASSESSMENT/PLAN: 1. Lactating mother - ICD9: V24.1, ICD10: Z39.1 2. Pain of breast during - Right breast pain- suspect plugged milk duct - Encouraged frequent feedings, breast massage, warm compresses to area - Tylenol 1000 mg PO every 6 hours as needed for pain Patient to call office if continues with elevated temperature or if pain increases RTO- next week for 6 week PP visit Cristina Young APRN.CNM documented in this encounter [facility] 04-12-2022 History of Presen t illness Narrative Patient delivered via at [facility] on 04/11/22 per Cristina Young CNM. See OB Outcome note. Sonya Mireles RN documented in this encounter [facility] 04-11-2022 Miscellaneous Notes DM- Pt doing well today. Denies Vaginal Bleeding, Leaking fluid, or contractions. Pt reports good movement. Membrane sweep per patient request. Declines IOL. Labor and kick counts reviewed. RTO one week. Ariela Araya MD documented in this encounter [facility] 04-11-2022 Instructions Kathy Dhaliwal Ma - 04/11/2022 10:53 AM EDT SEQUENTIAL SCREENINGS The [facility] offers sequential screenings for women who are interested in screenings for chromosomal abnormalities and certain defects during a . The sequential screen combines ultrasound and blood tests to determine the risk of chromosomal abnormalities, including Down's Syndrome (Trisomy 21) and Trisomy 18, as well as open neural tube defects including spina bifida. Ultrasound examination is performed between 11 weeks and 13 weeks gestational age. Blood tests are drawn after the ultrasound and again later in the between 15 and 21 weeks gestational age. Please let your physician know if you are interested in this testing. It will require an appointment with our psychology technician. This is not an ultrasound performed by a physician in our office during a routine visit. SIGNS AND SYMPTOMS OF LABOR 1. Contractions every 10 minutes or more often 2. Clear, pink, or brownish fluid (water) leaking from vagina 3. Feeling that baby is pushing down, pressure 4. Low, dull backache 5. Cramps that feel like a period 6. Cramps with or without diarrhea If you notice any of the above symptoms, contact our office at [phone] and ask to speak with a nurse. After hours, you can call doctors registry at [phone] OR call [facility] at [phone] and ask to have the doctor diabetes education coordinator paged. If you consider this an emergency, dial [phone]- or go to your nearest emergency department. NEED HELP? Are you dealing with a violent or abusive relationship? Are you a victim of rape or sexual assult? Call [facility] ([place]) 24 hour Crisis Hotline: 991.147.1978 or 884-803-9189. MANUAL Your Guide to a Healthy manual is now on-line. Visit [email or web address] to download your free copy documented in this encounter [facility] 04-03-2022 Miscellaneous Notes DM- Pt doing well today. Denies Vaginal Bleeding, Leaking fluid, or contractions. Pt reports good movement. Wants to wait for next week to possibly schedule elective IOL. Declines membrane sweep today. RTO 1 week. Labor and kick counts reviewed. Ariela Araya MD documented in this encounter [facility] 04-03-2022 Instructions Kathy Dhaliwal Ma - 04/03/2022 10:53 AM EDT SEQUENTIAL SCREENINGS The [facility] offers sequential screenings for women who are interested in screenings for chromosomal abnormalities and certain defects during a . The sequential screen combines ultrasound and blood tests to determine the risk of chromosomal abnormalities, including Down's Syndrome (Trisomy 21) and Trisomy 18, as well as open neural tube defects including spina bifida. Ultrasound examination is performed between 11 weeks and 13 weeks gestational age. Blood tests are drawn after the ultrasound and again later in the between 15 and 21 weeks gestational age. Please let your physician know if you are interested in this testing. It will require an appointment with our psychology technician. This is not an ultrasound performed by a physician in our office during a routine visit. SIGNS AND SYMPTOMS OF LABOR 1. Contractions every 10 minutes or more often 2. Clear, pink, or brownish fluid (water) leaking from vagina 3. Feeling that baby is pushing down, pressure 4. Low, dull backache 5. Cramps that feel like a period 6. Cramps with or without diarrhea If you notice any of the above symptoms, contact our office at [phone] and ask to speak with a nurse. After hours, you can call doctors registry at [phone] OR call [facility] at [phone] and ask to have the doctor diabetes education coordinator paged. If you consider this an emergency, dial 9--0 or go to your nearest emergency department. NEED HELP? Are you dealing with a violent or abusive relationship? Are you a victim of rape or sexual assult? Call [facility] ([place]) 24 hour Crisis Hotline: 207.915.3182 or 883-700-2346. MANUAL Your Guide to a Healthy manual is now on-line. Visit [email or web address] to download your free copy documented in this encounter [facility] 03-22-2022 Miscellaneous Notes Nelda Biggs is a 26 year old female who presents at 36w0d Estimated Date of Delivery: 04/19/22 for a routine visit. Just completed growth US- EFW 90% and IBIS 11. EFW decreased from 4 weeks ago. Patient desires physiological onset of labor. Previous precipitous delivery. Good movement. Occasional contractions. Denies headache, visual changes, chest pain, shortness of breath, vaginal bleeding, leakage of fluid, or dysuria. Feeling well, no complaints. Labor precautions and kick counts reviewed. GBS today. Repeat CBC at next visit- order placed. RTC in 1 week or sooner if needed. Cristina Young APRN.CNM documented in this encounter [facility] 03-22-2022 Instructions Judy Blanton MA - 03/22/2022 1:02 PM EDT Images from the original note were not included. Preparing for labor: Eat dates to promote spontaneous labor! Has an oxytocin-like effect on the body, leading to increased sensitivity of the uterus. Stimulates uterine contractions. Reduces hemorrhage the way oxytocin does. Date fruit contains saturated and unsaturated fatty acids such as oleic, linoleic, and linolenic acids, which are involved in saving and supplying energy and construction of prostaglandins. In addition, serotonin, tannin, and calcium in date fruit contribute to the contraction of smooth muscles of the uterus. Date fruit also has a laxative effect, which stimulates uterine contractions. Six dates per day is the magic number provided that you re eating smaller deglet noor dates. Deglet noor dates are about 1 inch long. Medjool dates can be up to 2 inches long. If you re eating medjool dates, you only need about 3 dates to reach the 75 grams recommended in the studies. Not sure which type of date you have in your refrigerator? It s probably a deglet noor. How to Eat Dates During Dates are a healthy and delicious snack, so how can you add them to your diet? Add dates during in this awesome oatmeal recipe. Add dates to replace sugar in your favorite recipe or to chidi your homemade almond milk. Use dates and nuts to make an easy pie crust in the fast food shift supervisor. Add soaked dates to homemade nut butter for a sweet treat. Add dates to chidi homemade salad dressing. Add dates during easily with these yummy (paleo friendly) bars made from dates. What Is Red Raspberry [place] Tea? Red raspberry leaf tea comes from the leaves of the red raspberry plant. This herbal tea has been used for centuries to support respiratory, digestive and uterine health, particularly during and childbearing years. While usually known as a female herb, red raspberry leaf tea can also help support the prostate and various stomach ailments in children. How It Can Help and Red raspberry leaf tea can help to make labor faster and reduce complications and interventions during . One study found that women who consumed RRL tea regularly are less likely to go overdue or give prematurely. These women may also be less likely to receive an artificial rupture of their membranes or require a section, forceps, or vacuum than the women in the control group. Red raspberry leaf has many other benefits to , , and too. How Much Red Raspberry [place] Tea to Drink? With your doctor or system manager s approval, start with 1 cup of red raspberry leaf tea per day starting in the second trimester. Watch for any uterine cramping or other reactions. If you don t experience any, you can talk to your healthcare provider about increasing to 2 cups per day. Again, watch for any uterine cramping. If you notice any, cut back on your dosage for two weeks and try again. Keep in mind, some moms have irritable uteruses and can only drink red raspberry leaf tea once they reach their due date because of uterine cramping. Is Red Raspberry [place] Tea the Same as Raspberry [place] Tea? How About Plain Old Raspberry Tea? Sometimes. You really need to look at the ingredients to be sure. Note that there is no difference between red raspberry leaf and raspberry leaf. Fios or Aviary Raspberry [place] Tea are two good brands. The red raspberry leaf teas that we recommend are 100% red raspberry leaf. Other teas labeled as raspberry are often a blend of rosehips, hibiscus, raspberry leaves, and raspberry flavor. So they may not be as effective. The teas to avoid are raspberry-flavored herbal teas, which may have ingredients like hibiscus, tammy hips, apples, elderberries, natural and artificial raspberry flavors. Teas like this don t contain raspberry leaf at all and thus won t offer any of the potential benefits of RRLT outlined in this article. The [employer] www.[employer] I named this 'circuit' after my friend Gabrielle Rodriguez, who shared and discussed it with me when I was working with a client whose labor seemed to be stalled out and no longer progressing... This circuit is useful to help get the baby lined up, ideally, in the Left Occiput Anterior (RUFINO) Position, both before labor begins and when some corrections need to be done during labor. Prenatally, this position set can help to rotate a baby. As a natural method of induction, this can help get things going if baby just needed a gentle nudge of position to set things off. To the best of my knowledge, this group of positions will not hurt a baby that is already lined up correctly. - Anahi Alvarado Before you Begin..... This circuit takes at least 90 minutes to complete so clear your schedule and make mental preparations so you can relax in your environment. The second step requires a lot of pillows so gather them up before beginning Before starting, you should empty your bladder! Have a nice drink nearby, and make sure it has a straw! If you are having contractions, this circuit should bedone through contractions, try not to change positions between steps Step One: Open-knee Chest Stay in this position for 30 minutes, start in cat/cow, then drop your chest as low as you can to the bed or the floor and your bottom as high as you can. Knees should be fairly wide apart, and the angle between the torso/thighs should be wider than 90 degrees. Wiggle around, prop with lots of pillows and use this time to get totally relaxed. This position allows the baby to scoot out of the pelvis a bit and gives them room to rotate, shift their head position, etc. If the person finds it helpful,careful positioning with a rebozo under the belly, with gentle tension from a support person behindcan help maintain this position for the full 30minutes. Step Two: Exaggerated Left Side Lying Roll to your left side, bringing your top leg as high as possible and keeping your bottom leg straight. Roll forward as much as possible,again using a lot of pillows. Sink into the bed and relax some more. If you fall asleep, that's totally okay and you can stay there! If not, stay here for at least another half an hour. Try and get your top right leg up towards your head and get as rolled over onto your belly as much as possible. If you repeat the circuit during labor, try alternating left and right sides. We know the photo the left is actually right side... just flip the image in your head. Step Three: Moving and Lunges Lunge, walk stairs facing sideways, 2 at a time, (have a glue mixer downstairs of you!), take a walk outside with one foot on the curb and the other on the street, sit on a ball and hula- anything that's upright and putting your pelvis in open, asymmetrical positions. Spend at least 30 minutes doing this one as well to give your baby a chance to move down. If you are lunging or stair or curb walking, you should lunge/walk/go up stairs in the direction that feels better to you. The julien with the lunge is that the toes of the higher leg and mom's belly button should be at right angles. Do not lunge over your knee, that closes the pelvis. Gabrielle Rodriguez: Circuit Creator - www.[employer]. Tandem Anahi Alvarado CD, BDT (HEIDY), LCCE, FACCE: Supporting Content - www.[employer] Bautistalong Longóscar Padron: Photography - [email or web address] or [email or web address].[email or web address] Zoey Heaton CD/CDT (EDELMIRA): Print and Eligibility Counselor - [email or web address].[email or web address] Circuit Masterminds The Yapp Circuit [email or web address] SEQUENTIAL SCREENINGS The [facility] offers sequential screenings for women who are interested in screenings for chromosomal abnormalities and certain defects during a . The sequential screen combines ultrasound and blood tests to determine the risk of chromosomal abnormalities, including Down's Syndrome (Trisomy 21) and Trisomy 18, as well as open neural tube defects including spina bifida. Ultrasound examination is performed between 11 weeks and 13 weeks gestational age. Blood tests are drawn after the ultrasound and again later in the between 15 and 21 weeks gestational age. Please let your physician know if you are interested in this testing. It will require an appointment with our psychology technician. This is not an ultrasound performed by a physician in our office during a routine visit. SIGNS AND SYMPTOMS OF LABOR 1. Contractions every 10 minutes or more often 2. Clear, pink, or brownish fluid (water) leaking from vagina 3. Feeling that baby is pushing down, pressure 4. Low, dull backache 5. Cramps that feel like a period 6. Cramps with or without diarrhea If you notice any of the above symptoms, contact our office at [phone] and ask to speak with a nurse. After hours, you can call doctors registry at [phone] OR call [facility] at [phone] and ask to have the doctor diabetes education coordinator paged. If you consider this an emergency, dial or go to your nearest emergency department. NEED HELP? Are you dealing with a violent or abusive relationship? Are you a victim of rape or sexual assult? Call [facility] ([place]) 24 hour Crisis Hotline: 178.757.5059 or 092-686-9013. MANUAL Your Guide to a Healthy manual is now on-line. Visit [email or web address] to download your free copy documented in this encounter [facility] 03-12-2022 Miscellaneous Notes KJ - No VB/LOF/ctxs. Reports good FM. A&P: Anemia -continue iron & PNV LGA fetus - repeat growth US in 2 weeks Reviewed PTL & FM precautions Petar Ames MD documented in this encounter [facility] 03-12-2022 Instructions Medina Tee MA - 03/12/2022 1:03 PM EDT SEQUENTIAL SCREENINGS [facility] offers sequential screenings for women who are interested in screenings for chromosomal abnormalities and certain defects during a . The sequential screen combines ultrasound and blood tests to determine the risk of chromosomal abnormalities, including Down's Syndrome (Trisomy 21) and Trisomy 18, as well as open neural tube defects including spina bifida. Ultrasound examination is performed between 11 weeks and 13 weeks gestational age. Blood tests are drawn after the ultrasound and again later in the between 15 and 21 weeks gestational age. Please let your physician know if you are interested in this testing. It will require an appointment with our psychology technician. This is not an ultrasound performed by a physician in our office during a routine visit. SIGNS AND SYMPTOMS OF LABOR 1. Contractions every 10 minutes or more often 2. Clear, pink, or brownish fluid (water) leaking from vagina 3. Feeling that baby is pushing down, pressure 4. Low, dull backache 5. Cramps that feel like a period 6. Cramps with or without diarrhea If you notice any of the above symptoms, contact our office at [phone] and ask to speak with a nurse. After hours, you can call [facility] at [phone] OR call [facility] at [phone] and ask to have the doctor diabetes education coordinator paged. If you consider this an emergency, dial 9-1-9 or go to your nearest emergency department. NEED HELP? Are you dealing with a violent or abusive relationship? Are you a victim of rape or sexual assult? Call [facility] ([place]) 24 hour Crisis Hotline: 398.922.1503 or 851-895-2750. MANUAL Your Guide to a Healthy manual is now on-line. Visit [email or web address] to download your free copy documented in this encounter [facility] 02-12-2022 Miscellaneous Notes KJ - No VB/LOF/ctxs. Reports good FM. A&P: LGA - repeat US in 2 weeks Reviewed PTL & FM precautions Petar Ames MD documented in this encounter [facility] 02-12-2022 Instructions Candace Callaway Ma - 02/12/2022 1:33 PM EDT SEQUENTIAL SCREENINGS The [facility] offers sequential screenings for women who are interested in screenings for chromosomal abnormalities and certain defects during a . The sequential screen combines ultrasound and blood tests to determine the risk of chromosomal abnormalities, including Down's Syndrome (Trisomy 21) and Trisomy 18, as well as open neural tube defects including spina bifida. Ultrasound examination is performed between 11 weeks and 13 weeks gestational age. Blood tests are drawn after the ultrasound and again later in the between 15 and 21 weeks gestational age. Please let your physician know if you are interested in this testing. It will require an appointment with our psychology technician. This is not an ultrasound performed by a physician in our office during a routine visit. SIGNS AND SYMPTOMS OF LABOR 1. Contractions every 10 minutes or more often 2. Clear, pink, or brownish fluid (water) leaking from vagina 3. Feeling that baby is pushing down, pressure 4. Low, dull backache 5. Cramps that feel like a period 6. Cramps with or without diarrhea If you notice any of the above symptoms, contact our office at [phone] and ask to speak with a nurse. After hours, you can call doctors registry at [phone] OR call [facility] at [phone] and ask to have the doctor diabetes education coordinator paged. If you consider this an emergency, dial [phone]--4 or go to your nearest emergency department. NEED HELP? Are you dealing with a violent or abusive relationship? Are you a victim of rape or sexual assult? Call [facility] ([place]) 24 hour Crisis Hotline: 674.920.6812 or 273-341-1044. MANUAL Your Guide to a Healthy manual is now on-line. Visit [email or web address] [email or web address] to download your free copy documented in this encounter [facility] 01-28-2022 Miscellaneous Notes RICARDA-S: Nelda Biggs is a 26 year old female who presents at 28w3d with KOREY:04/19/2022, by Last Menstrual Period for a routine visit. Good FM. Denies headache, visual changes, chest pain, shortness of breath, vaginal bleeding, leakage of fluid, or dysuria. Feeling well, no complaints. O: See flow sheet Gen: No apparent distress Abd: Gravid, nontender S=D, 30 lb TWG ASSESSMENT/PLAN: 1. 28 weeks gestation of P: - 1 hour GCT, CBC, and RPR today - O positive - TDAP declines - LARC form reviewed and signed. Patient declines. Planning condoms - Depression screen negative - Opioid screen negative - plan form discussed and given to patient. - 1hr GCT, CBC, and RPR today - Follow up US placenta fundal and no longer low lying - PTL precautions and kick counts reviewed - RTO- 2 weeks or sooner if needed SBIRT Nelda Biggs was given the 4P's screening tool. Nelda answered as follows: OB Opioid Screening - Last Recorded (since 05/03/2021) Did any of your parents have a problem with alcohol or other drug use? No Does your partner have a problem with alcohol or other drug use? No In the past, have you had difficulties in your life because of alcohol or other drugs, including prescription medications? No In the past month have you drunk any alcohol or used other drugs? No Are you taking medication for pain during the either prescribed or not? No Based on the screen and further questions, she is considered at Low risk due to:No past or current use. Positive reinforcement of current behavior. Wen Guadarrama APRN.CNM documented in this encounter [facility] 01-28-2022 Instructions Judy Blanton MA - 01/28/2022 10:02 AM EDT SEQUENTIAL SCREENINGS The [facility] offers sequential screenings for women who are interested in screenings for chromosomal abnormalities and certain defects during a . The sequential screen combines ultrasound and blood tests to determine the risk of chromosomal abnormalities, including Down's Syndrome (Trisomy 21) and Trisomy 18, as well as open neural tube defects including spina bifida. Ultrasound examination is performed between 11 weeks and 13 weeks gestational age. Blood tests are drawn after the ultrasound and again later in the between 15 and 21 weeks gestational age. Please let your physician know if you are interested in this testing. It will require an appointment with our psychology technician. This is not an ultrasound performed by a physician in our office during a routine visit. SIGNS AND SYMPTOMS OF LABOR 1. Contractions every 10 minutes or more often 2. Clear, pink, or brownish fluid (water) leaking from vagina 3. Feeling that baby is pushing down, pressure 4. Low, dull backache 5. Cramps that feel like a period 6. Cramps with or without diarrhea If you notice any of the above symptoms, contact our office at [phone] and ask to speak with a nurse. After hours, you can call doctors registry at [phone] OR call [facility] at [phone] and ask to have the doctor diabetes education coordinator paged. If you consider this an emergency, dial [phone]- or go to your nearest emergency department. NEED HELP? Are you dealing with a violent or abusive relationship? Are you a victim of rape or sexual assult? Call [facility] ([facility] 24 hour Crisis Hotline: 651.369.4640 or 191-367-8644. MANUAL Your Guide to a Healthy manual is now on-line. Visit [email or web address] [email or web address] to download your free copy documented in this encounter [facility] 12-28-2021 Miscellaneous Notes RR- No Vb/LOF. good FM. US for f/u low placenta scheduled. 28 week labs next visit. Joanna Amaral MD documented in this encounter [facility] 12-28-2021 Fredrick Salgado Ma - 12/28/2021 1:41 PM EDT SEQUENTIAL SCREENINGS The [facility] offers sequential screenings for women who are interested in screenings for chromosomal abnormalities and certain defects during a . The sequential screen combines ultrasound and blood tests to determine the risk of chromosomal abnormalities, including Down's Syndrome (Trisomy 21) and Trisomy 18, as well as open neural tube defects including spina bifida. Ultrasound examination is performed between 11 weeks and 13 weeks gestational age. Blood tests are drawn after the ultrasound and again later in the between 15 and 21 weeks gestational age. Please let your physician know if you are interested in this testing. It will require an appointment with our psychology technician. This is not an ultrasound performed by a physician in our office during a routine visit. SIGNS AND SYMPTOMS OF LABOR 1. Contractions every 10 minutes or more often 2. Clear, pink, or brownish fluid (water) leaking from vagina 3. Feeling that baby is pushing down, pressure 4. Low, dull backache 5. Cramps that feel like a period 6. Cramps with or without diarrhea If you notice any of the above symptoms, contact our office at [phone] and ask to speak with a nurse. After hours, you can call doctors registry at [phone] OR call [facility] at [phone] and ask to have the doctor diabetes education coordinator paged. If you consider this an emergency, dial or go to your nearest emergency department. NEED HELP? Are you dealing with a violent or abusive relationship? Are you a victim of rape or sexual assult? Call [facility] ([place]) 24 hour Crisis Hotline: 128.559.5855 or 233-274-2872. MANUAL Your Guide to a Healthy manual is now on-line. Visit [email or web address] [email or web address] to download your free copy documented in this encounter [facility] 11-30-2021 History of Past i llness Narrative Problem Noted Date Resolved Date Low-lying placenta 11/30/2021 05/23/2022 Overview: 02/28/22 - EFW at 97%, plan for repeat growth US at 36 weeks - Petar Ames MD 01/28/22-Resolved, placenta fundal, 99th percentile. Wen Guadarrama APRN.CNM 12/03/21-Repeat US for placental location at 28 weeks. Wen Guadarrama APRN.CNM 11/30/21- low lying placenta noted during anatomy ultrasound. Cristina Young APRN.CNM Patient request for diagnostic testing 05/23/2022 Overview: 1Patient desires nuchal ultrasound. She will call [facility] to discuss insurance coverage for [id number]. Patient declines genetic carrier screening testing.Kasie Sandoval RN Encounter for supervision of normal in first trimester 03/12/2019 05/23/2022 Supervision of wit h history of infertility, third trimester 04/28/2017 02/02/2018 Overview: 04/28/2017Patient and have been attempting for 1 1/2 years. TKRN with uncertain qamar es, antepartum, unspecified trimester 04/28/2017 02/02/2018 Overview: 04/28/2017Had a positive test 04/24. LMP 02/10/2017. Has history of irregular menses every 28-[address] Stevens. Ultrasound ordered and to be done prior to appointment. 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 TKRN with uncertain qamar es, antepartum, unspecified trimester 04/28/2017 02/02/2018 Overview: 04/28/2017Had a positive test 04/24. LMP 02/10/2017. Has history of irregular menses every 28-[address] Stevens. Ultrasound ordered and to be done prior to appointment. 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 TKRN with uncertain qamar es, antepartum, unspecified trimester 04/28/2017 02/02/2018 Overview: 04/28/2017Had a positive test 04/24. LMP 02/10/2017. Has history of irregular menses every 28-[address] Stevens. Ultrasound ordered and to be done prior to appointment. 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 TKRN with uncertain qamar es, antepartum, unspecified trimester 04/28/2017 02/02/2018 Overview: 04/28/2017Had a positive test 04/24. LMP 02/10/2017. Has history of irregular menses every 28-[address] Stevens. Ultrasound ordered and to be done prior to appointment. 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 TKRN with uncertain qamar es, antepartum, unspecified trimester 04/28/2017 02/02/2018 Overview: 04/28/2017Had a positive test 04/24. LMP 02/10/2017. Has history of irregular menses every 28-[address] Stevens. Ultrasound ordered and to be done prior to appointment. 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 TKRN with uncertain qamar es, antepartum, unspecified trimester 04/28/2017 02/02/2018 Overview: 04/28/2017Had a positive test 04/24. LMP 02/10/2017. Has history of irregular menses every 28-[address] Stevens. Ultrasound ordered and to be done prior to appointment. 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 TKRN with uncertain qamar es, antepartum, unspecified trimester 04/28/2017 02/02/2018 Overview: 04/28/2017Had a positive test 04/24. LMP 02/10/2017. Has history of irregular menses every 28-[address] Stevens. Ultrasound ordered and to be done prior to appointment. 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 TKRN with uncertain qamar es, antepartum, unspecified trimester 04/28/2017 02/02/2018 Overview: 04/28/2017Had a positive test 04/24. LMP 02/10/2017. Has history of irregular menses every 28-[address] Stevens. Ultrasound ordered and to be done prior to appointment. 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 TKRN with uncertain qamar es, antepartum, unspecified trimester 04/28/2017 02/02/2018 Overview: 04/28/2017Had a positive test 04/24. LMP 02/10/2017. Has history of irregular menses every 28-[address] Stevens. Ultrasound ordered and to be done prior to appointment. 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 TKRN with uncertain qamar es, antepartum, unspecified trimester 04/28/2017 02/02/2018 Overview: 04/28/2017Had a positive test 04/24. LMP 02/10/2017. Has history of irregular menses every 28-[address] Stevens. Ultrasound ordered and to be done prior to appointment. 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 TKRN with uncertain qamar es, antepartum, unspecified trimester 04/28/2017 02/02/2018 Overview: 04/28/2017Had a positive test 04/24. LMP 02/10/2017. Has history of irregular menses every 28-[address] Stevens. Ultrasound ordered and to be done prior to appointment. 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 TKRN with uncertain qamar es, antepartum, unspecified trimester 04/28/2017 02/02/2018 Overview: 04/28/2017Had a positive test 04/24. LMP 02/10/2017. Has history of irregular menses every 28-[address] Stevens. Ultrasound ordered and to be done prior to appointment. TKRN Breast lump in female 06/01/2010 06/23/2012 documented as of this encounter (statuses as of 05/15/2022) [facility] Diagnosis Encounter for supervision of other normal in second trimester- Primary 24 weeks gestation of state, incidental [facility]* Diagnosis 28 weeks gestation of - Primary state, incidental Low-lying placenta Hemorrhage from placenta previa, unspecified as to episode of care documented [facility]* Diagnosis Encounter for supervision of other normal in third trimester- Primary 30 weeks gestation of state, incidental Excessive growth affecting management of , antepartum, single or unspecified fetus documented [facility]* Diagnosis Suspected placental problem not found- Primary 32 weeks gestation of state, incidental Excessive growth affecting management of , antepartum, single or unspecified fetus [facility] Diagnosis 34 weeks gestation of - Primary state, incidental Encounter for supervision of other normal in third trimester [facility] Diagnosis Anemia during in third trimester- Primary 36 weeks gestation of state, incidental [facility]* Diagnosis Uterine size-date discrepancy, third trimester- Primary 36 weeks gestation of state, incidental [facility] Diagnosis Excessive growth affecting management of in third trimester, single or unspecified fetus- Primary 37 weeks gestation of state, incidental [facility]* Diagnosis Excessive growth affecting management of in third trimester, single or unspecified fetus- Primary 38 weeks gestation of state, incidental [facility] Diagnosis Onset Date Resolution Status 38 weeks gestation of acute Multiparity acute Spontaneous onset of labor a cute (spontaneous vaginal delivery) [facility] Work Phone: Evaluation note* Diagnosis Lactating mother- Primary care and examination of lactating mother Pain of breast during documented [facility]* Diagnosis care and examination- Primary Routine follow-up Encounter for screening for malignant neoplasm of cervix Screening for malignant neoplasm of the cervix documented [facility] this encounter [facility] noteNo assessment information availableWDayton [facility] Work Phone: Evaluation note* Diagnosis Encounter for supervision of other normal in first trimester- Primary Encounter for test, result positive examination or test, positive result [facility] Diagnosis Encounter for supervision of other normal in first trimester- Primary 11 weeks gestation of state, incidental [facility] Diagnosis Encounter for anatomic survey- Primary Encounter for supervision of other normal in first trimester 11 weeks gestation of state, incidental [facility]* Diagnosis Encounter for supervision of other normal in first trimester (HCC)- Primary [facility]* Diagnosis Encounter for supervision of other normal in second trimester (HCC)- Primary 15 weeks gestation of (HCC) state, incidental [facility]* Diagnosis Encounter for supervision of other normal in second trimester (HCC)- Primary 19 weeks gestation of (HCC) state, incidental [facility] Diagnosis Encounter for anatomic survey (HCC)- Primary Encounter for anatomic survey 19 weeks gestation of (HCC) state, incidental [facility]* Diagnosis Encounter for supervision of other normal in second trimester (HCC)- Primary 23 weeks gestation of (HCC) state, incidental Screening for diabetes mellitus [facility]* Diagnosis Encounter for supervision of other normal in second trimester (HCC)- Primary 26 weeks gestation of (HCC) state, incidental [facility]* Diagnosis 29 weeks gestation of (HCC)- Primary state, incidental Encounter for supervision of other normal in third trimester ([facility]) Elevated glucose tolerance test Impaired glucose tolerance test documented in this encounter [facility] note* Diagnosis Macrosomia of fetus affecting management of mother in third trimester, single or unspecified fetus (HCC)- Primary 32 weeks gestation of ([facility]) state, incidental Encounter for supervision of other normal in third trimester ([facility]) Uterine size-date discrepancy, third trimester ([facility]) [facility]* Diagnosis 32 weeks gestation of (HCC)- Primary state, incidental Encounter for supervision of other normal in third trimester ([facility]) Uterine size-date discrepancy, third trimester ([facility]) [facility]* Diagnosis Encounter for supervision of other normal in third trimester (HCC)- Primary 34 weeks gestation of ([facility]) state, incidental [facility]* Diagnosis Elevated glucose tolerance test- Primary Impaired glucose tolerance test documented in this encounter [facility] note* Diagnosis Encounter for supervision of other normal in third trimester (HCC)- Primary Macrosomia of fetus affecting management of mother in third trimester, single or unspecified fetus (HCC) Uterine size-date discrepancy, third trimester ([facility]) 36 weeks gestation of ([facility]) state, incidental * Assessment & Plan Note - Ariela Dee MD - 06/03/2025 10:45 AM EDTAssociated Problem(s): Supervision of normal ([facility]) Orders: URINE OB DIP B/O ROUTINE, GROUP B STREPTOCOCCUS BY PCR * Assessment & Plan Note - Ariela Dee MD - 06/03/2025 10:45 AM EDTAssociated Problem(s): Macrosomia affecting management of mother in third trimester (HCC) Orders: URINE OB DIP B/O [facility]* Diagnosis Elevated glucose tolerance test- Primary Impaired glucose tolerance test Encounter for supervision of other normal in third trimester ([facility])- Primary Macrosomia of fetus affecting management of mother in third trimester, single or unspecified fetus (HCC) Uterine size-date discrepancy, third trimester ([facility]) 36 weeks gestation of ([facility]) state, incidental documented in this encounter [facility] Discharge instructions Additional Instructions Follow up in 2 and 6 weeks with your [facility]WDay[facility] Work Phone: [facility] (narrative)* Diagnostic Procedure Only (Routine) - Authorized Specialty Diagnoses / Procedures Referred By Contac t Referred To Contact [facility] Diagnoses 30 weeks gestation of Excessive growth affecting management of , antepartum, single or unspecified fetus Procedures OBSTETRIC ULTRASOUND WHI US PREG UTERUS AFTER 1ST TRIMEST GESTATION Petar Ames MD [address] [place] [address] [facility] [place] [address] Referral ID Status Reason Start Date Expiration Date Visits Requested Visits Authorized [id number] Authorized Auto-Generat ed Referral 02/12/2022 02/12/2023 1 1 [facility] for referral (narrative)* Diagnostic Procedure Only (Routine) - Authorized Specialty Diagnoses / Procedures Referred By Contac t Referred To Contact [facility] Diagnoses 34 weeks gestation of Encounter for supervision of other normal in third trimester Procedures OBSTETRIC ULTRASOUND WHI US PREG UTERUS AFTER 1ST TRIMEST GESTATION Petar Ames MD [address] [place] [address] [facility] [place] [address] Referral ID Status Reason Start Date Expiration Date Visits Requested Visits Authorized [id number] Authorized Auto-Generat ed Referral 03/12/2022 03/12/2023 1 1 [facility] Chief Complaint and Reason for Visit Chief Complaint LABOR AND DELIVERY Reason for Visit 38 weeks gestation o f Multiparity Spontaneous onset of labor (spontaneous vaginal delivery) Chief Complaint BLOOD IN URINE Advance Directives No Advanced Directives Records Found Advance Directive Response Recorded Date/ Time Living Will No April 11, 2022 4:26pm Power of Hair Blender No April 11 4:26pm Advance Directive Response Recorded Date/ Time Living Will No October 04 4:50pm Power of Hair Blender No October 04, 2022 4:50pm Summary Purpose Family History No Family History Records FoundNo Family History Records Found Additional Source Comments Source Comments (unrecognize d section and content) In the event this informatio n is protected by the Federal Confidentiality of Alcohol and Drug Abuse Patient Records regulations: The Federal rules restrict any use of the information to criminally investigate or prosecute any alcohol or drug abuse patient.[facility] the event this information is protected by the Federal Confidentiality of Alcohol and Drug Abuse Patient Records regulations: The Federal rules restrict any use of the information to criminally investigate or prosecute any alcohol or drug abuse patient.[facility]In the event this information is protected by the Federal Confidentiality of Alcohol and Drug Abuse Patient Records regulations: The Federal rules restrict any use of the information to criminally investigate or prosecute any alcohol or drug abuse patient.[facility]In the event this information is protected by the Federal Confidentiality of Alcohol and Drug Abuse Patient Records regulations: The Federal rules restrict any use of the information to criminally investigate or prosecute any alcohol or drug abuse patient.[facility]In the event this information is protected by the Federal Confidentiality of Alcohol and Drug Abuse Patient Records regulations: The Federal rules restrict any use of the information to criminally investigate or prosecute any alcohol or drug abuse patient.[facility]In the event this information is protected by the Federal Confidentiality of Alcohol and Drug Abuse Patient Records regulations: The Federal rules restrict any use of the information to criminally investigate or prosecute any alcohol or drug abuse patient.[facility]In the event this information is protected by the Federal Confidentiality of Alcohol and Drug Abuse Patient Records regulations: The Federal rules restrict any use of the information to criminally investigate or prosecute any alcohol or drug abuse patient.[facility] HospitalIn the event this information is protected by the Federal Confidentiality of Alcohol and Drug Abuse Patient Records regulations: The Federal rules restrict any use of the information to criminally investigate or prosecute any alcohol or drug abuse patient.[facility] HospitalIn the event this information is protected by the Federal Confidentiality of Alcohol and Drug Abuse Patient Records regulations: The Federal rules restrict any use of the information to criminally investigate or prosecute any alcohol or drug abuse patient.[facility]In the event this information is protected by the Federal Confidentiality of Alcohol and Drug Abuse Patient Records regulations: The Federal rules restrict any use of the information to criminally investigate or prosecute any alcohol or drug abuse patient.[facility] HospitalIn the event this information is protected by the Federal Confidentiality of Alcohol and Drug Abuse Patient Records regulations: The Federal rules restrict any use of the information to criminally investigate or prosecute any alcohol or drug abuse patient.[facility] HospitalIn the event this information is protected by the Federal Confidentiality of Alcohol and Drug Abuse Patient Records regulations: The Federal rules restrict any use of the information to criminally investigate or prosecute any alcohol or drug abuse patient.[facility] HospitalIn the event this information is protected by the Federal Confidentiality of Alcohol and Drug Abuse Patient Records regulations: The Federal rules restrict any use of the information to criminally investigate or prosecute any alcohol or drug abuse patient.[facility] HospitalIn the event this information is protected by the Federal Confidentiality of Alcohol and Drug Abuse Patient Records regulations: The Federal rules restrict any use of the information to criminally investigate or prosecute any alcohol or drug abuse patient.[facility] HospitalIn the event this information is protected by the Federal Confidentiality of Alcohol and Drug Abuse Patient Records regulations: The Federal rules restrict any use of the information to criminally investigate or prosecute any alcohol or drug abuse patient.[facility] HospitalIn the event this information is protected by the Federal Confidentiality of Alcohol and Drug Abuse Patient Records regulations: The Federal rules restrict any use of the information to criminally investigate or prosecute any alcohol or drug abuse patient.[facility] HospitalIn the event this information is protected by the Federal Confidentiality of Alcohol and Drug Abuse Patient Records regulations: The Federal rules restrict any use of the information to criminally investigate or prosecute any alcohol or drug abuse patient.[facility] HospitalIn the event this information is protected by the Federal Confidentiality of Alcohol and Drug Abuse Patient Records regulations: The Federal rules restrict any use of the information to criminally investigate or prosecute any alcohol or drug abuse patient.[facility] HospitalIn the event this information is protected by the Federal Confidentiality of Alcohol and Drug Abuse Patient Records regulations: The Federal rules restrict any use of the information to criminally investigate or prosecute any alcohol or drug abuse patient.[facility] HospitalIn the event this information is protected by the Federal Confidentiality of Alcohol and Drug Abuse Patient Records regulations: The Federal rules restrict any use of the information to criminally investigate or prosecute any alcohol or drug abuse patient.[facility] HospitalIn the event this information is protected by the Federal Confidentiality of Alcohol and Drug Abuse Patient Records regulations: The Federal rules restrict any use of the information to criminally investigate or prosecute any alcohol or drug abuse patient.[facility] HospitalIn the event this information is protected by the Federal Confidentiality of Alcohol and Drug Abuse Patient Records regulations: The Federal rules restrict any use of the information to criminally investigate or prosecute any alcohol or drug abuse patient.[facility] HospitalIn the event this information is protected by the Federal Confidentiality of Alcohol and Drug Abuse Patient Records regulations: The Federal rules restrict any use of the information to criminally investigate or prosecute any alcohol or drug abuse patient.[facility] HospitalIn the event this information is protected by the Federal Confidentiality of Alcohol and Drug Abuse Patient Records regulations: The Federal rules restrict any use of the information to criminally investigate or prosecute any alcohol or drug abuse patient.[facility] HospitalIn the event this information is protected by the Federal Confidentiality of Alcohol and Drug Abuse Patient Records regulations: The Federal rules restrict any use of the information to criminally investigate or prosecute any alcohol or drug abuse patient.[facility] HospitalIn the event this information is protected by the Federal Confidentiality of Alcohol and Drug Abuse Patient Records regulations: The Federal rules restrict any use of the information to criminally investigate or prosecute any alcohol or drug abuse patient.[facility] the event this information is protected by the Federal Confidentiality of Alcohol and Drug Abuse Patient Records regulations: The Federal rules restrict any use of the information to criminally investigate or prosecute any alcohol or drug abuse patient.[facility] HospitalIn the event this information is protected by the Federal Confidentiality of Alcohol and Drug Abuse Patient Records regulations: The Federal rules restrict any use of the information to criminally investigate or prosecute any alcohol or drug abuse patient.[facility] HospitalIn the event this information is protected by the Federal Confidentiality of Alcohol and Drug Abuse Patient Records regulations: The Federal rules restrict any use of the information to criminally investigate or prosecute any alcohol or drug abuse patient.[facility] HospitalIn the event this information is protected by the Federal Confidentiality of Alcohol and Drug Abuse Patient Records regulations: The Federal rules restrict any use of the information to criminally investigate or prosecute any alcohol or drug abuse patient.[facility] HospitalIn the event this information is protected by the Federal Confidentiality of Alcohol and Drug Abuse Patient Records regulations: The Federal rules restrict any use of the information to criminally investigate or prosecute any alcohol or drug abuse patient.[facility] HospitalIn the event this information is protected by the Federal Confidentiality of Alcohol and Drug Abuse Patient Records regulations: The Federal rules restrict any use of the information to criminally investigate or prosecute any alcohol or drug abuse patient.[facility]In the event this information is protected by the Federal Confidentiality of Alcohol and Drug Abuse Patient Records regulations: The Federal rules restrict any use of the information to criminally investigate or prosecute any alcohol or drug abuse patient.[facility] HospitalIn the event this information is protected by the Federal Confidentiality of Alcohol and Drug Abuse Patient Records regulations: The Federal rules restrict any use of the information to criminally investigate or prosecute any alcohol or drug abuse patient.[facility] Reason for Visit (unrecogniz ed section and content) Reason Onset Date Comments Care 12/28/2021 Reason Onset Date Comments Care 01/28/2022 Reason Onset Date Comments Care 02/12/2022 Reason Comments US Specialty Diagnoses / Procedures Referred By Willy t Referred To Contact [facility] Diagnoses 30 weeks gestation of Excessive growth affecting management of , antepartum, single or unspecified fetus Procedures OBSTETRIC ULTRASOUND WHI US PREG UTERUS AFTER 1ST TRIMEST GESTATION Petar Ames MD [address] [place] [address] [facility] [employer] [place] [address] Referral ID Status Reason Start Date Expiration Date V isits Requested Visits Authorized [id number] Closed Auto-Generate d Referral 02/12/2022 02/12/2023 1 1 Reason Onset Date Comments Care 03/12/2022 Reason Onset Date Comments Care 03/22/2022 Specialty Diagnoses / Procedures Referred By Contac t Referred To Contact [facility] Diagnoses 34 weeks gestation of Encounter for supervision of other normal in third trimester Procedures OBSTETRIC ULTRASOUND WHI US PREG UTERUS AFTER 1ST TRIMEST GESTATION Petar Ames MD [address] [place] [address] [facility] [address] [address] Referral ID Status Reason Start Date Expiration Date V isits Requested Visits Authorized [id number] Closed Auto-Generate d Referral 03/12/2022 03/12/2023 1 1 Reason Onset Date Comments Care 04/03/2022 Reason Onset Date Comments Care 04/11/2022 Reason Comments Ob Delivery Note Reason Comments Early Right breast pain Reason Comments Care Reason Comments Initial OB Visit Specialty Diagnoses / Procedures Referred By Willy t Referred To Contact [facility] Diagnoses Date of last menstrual period (LMP) unknown 1st OB - LMP 09/24/2024 Procedures NEW WHI OB 1ST EXAM Self Leila Miller APRN.ANIMAL HUSBANDRY PROFESSOR [address] [place] [address] Phone: tel: fax: Referral ID Status Reason Start Date Expiration Date Visits Requested Visits Authorized [id number] Closed Financial Clearance Required - OON Payor OON Notification Letter Clearance Not Met - Pt Rescheduled/Canc elled/Chose Not to Proceed Patient Cleared - INN Insurance Found 11/08/2024 09/21/2025 1 1 Reason Comments Inspector Fibrous Wallboard - Other PRAF Reason Onset Date Comments Care 12/14/2024 Specialty Diagnoses / Procedures Referred By Willy t Referred To Contact [facility] Diagnoses Encounter for supervision of other normal in first trimester Procedures OBSTETRIC ULTRASOUND WHI US PREG UTERUS AFTER 1ST TRIMEST GESTATION Wen Guadarrama APRN.CNM [address] [place] [address] Phone: tel: fax:[phone] [address] Referral ID Status Reason Start Date Expiration Date V isits Requested Visits Authorized [id number] Closed Auto-Generate d Referral 11/17/2024 11/17/2025 1 1 Reason Comments Patient Question Reason Onset Date Comments Care 01/07/2025 Reason Onset Date Comments Care 02/04/2025 Specialty Diagnoses / Procedures Referred By Willy t Referred To Contact [facility] Diagnoses Encounter for supervision of other normal in first trimester (HCC) Procedures OBSTETRIC ULTRASOUND WHI US PREG UTERUS AFTER 1ST TRIMEST GESTATION Wen Guadarrama APRN.CNM [address] [place] [address] Phone: tel: fax:[phone] [address] Referral ID Status Reason Start Date Expiration Date V isits Requested Visits Authorized [id number] Closed Auto-Generate d Referral 11/17/2024 11/17/2025 1 1 Reason Onset Date Comments Care 03/04/2025 Reason Comments PRAF Reason Onset Date Comments Care 03/31/2025 Reason Onset Date Comments Care 04/15/2025 Specialty Diagnoses / Procedures Referred By Willy t Referred To Contact [facility] Diagnoses 32 weeks gestation of (HCC) Encounter for supervision of other normal in third trimester ([facility]) Uterine size-date discrepancy, third trimester ([facility]) Procedures OBSTETRIC ULTRASOUND WHI US PREG UTERUS AFTER 1ST TRIMEST GESTATION Cristina Young APRN.CNM [address] [place] [address] Phone: tel: fax: [address] [address] Referral ID Status Reason Start Date Expiration Date V isits Requested Visits Authorized [id number] Closed Auto-Generate d Referral 05/11/2025 05/11/2026 5 1 Reason Onset Date Comments Care 05/11/2025 Reason Onset Date Comments Care 05/20/2025 Reason Onset Date Comments Results 03/31/2025 Reason Onset Date Comments Care 06/03/2025 Goals (unrecognized section and content) Goals may be documented in a n alternate section INFORMATION SOURCE (unrecogn ized section and content) DATE CREATED AUTHOR 10/05/2022 [facility] DATE CREATED AUTHOR AUTHOR'S ORGANIZ ATION 06/23/2025 [facility] FOR RECORDS PERTAINING TO PATIENTS WHO ARE OR HAVE BEEN ENROLLED IN A CHEMICAL DEPENDENCY/SUBSTANCEABUSE PROGRAM, SOME INFORMATION MAY BE OMITTED. This clinical summary was aggregated from multiple sources. Caution should be exercised in using it in the provision of clinical care. This summary normalizes information from multiple sources, and as a consequence, information in this document may materially change the coding, format and clinical context of patient data. In addition, data may be omitted in some cases. CLINICAL DECISIONS SHOULD BE BASED ON THE PRIMARY CLINICAL RECORDS. [facility]. provides no warranty or guarantee of the accuracy or completeness of information in this document.
--- NOTE | 2025-06-27 15:38 | NURSING ---
F/up phone call attempted, no ans, LVM.
== END 2025-06-23 15:56 | disposition home or self-care (01) | DRG 560 ==
LOC: WPOUT 10:19 → WP 10:19
PROVIDERS: Admitting Provider Advanced Practice Midwife; Referring Provider Advanced Practice Midwife; Visit Provider Advanced Practice Midwife
DX: O36.63X0 Maternal care for excessive fetal growth, third trimester, not applicable or unspecified (principal); Z37.0 Single live birth; Z3A.38 38 weeks gestation of pregnancy; Z64.1 Problems related to multiparity
CPT/HCPCS: 59025; 59050; 85025; 86780; 86850; 86900; 86901; 99221; A4216; G0378